=== PATIENT | male | born 1980 | race African-American/Black ===

== ENCOUNTER 2018-06-29 18:12 | Emergency (ER) | payer OTHER ==
--- NOTE | 2018-06-29 21:21 | ER ---
Nurse's Notes [facility] Name: Mat Lerma Age: 38 yrs Sex: Male : 1980 Arrival Date: 06/29/2018 Time: 18:18 Bed 19 Private MD: None, None Diagnosis: Acute sinusitis Presentation: 06/29 18:48 Presenting complaint: Patient states: Reports starting HTN medication on Wednesday and now aj reports feeling light headed since Wednesday. Patient also reports sinus congestion and nasal drainage. Transition of care: patient was not received from another setting of care. Onset of symptoms was June 27, 2018. Risk Assessment: Do you want to hurt yourself or someone else? Patient reports no desire to harm self or others. Initial Sepsis Screen: Does the patient meet any 2 criteria? No. Patient's initial sepsis screen is negative. Does the patient have a suspected source of infection? No. Patient's initial sepsis screen is negative. Care prior to arrival: None. 18:48 Method Of Arrival: Ambulatory aj 18:48 Acuity: DIAMOND 4 aj Triage Assessment: 18:51 General: Appears in no apparent distress. comfortable, Behavior is calm, cooperative, aj appropriate for age. Pain: Denies pain. EENT: Reports Pressure across forehead. EENT: Reports nasal congestion nasal discharge. Neuro: Level of Consciousness is awake, alert, obeys commands, Oriented to person, place, time, situation, Appropriate for age. Respiratory: Airway is patent Respiratory effort is even, unlabored, Respiratory pattern is regular, symmetrical. Derm: Skin is intact, is healthy with good turgor, Skin is pink, warm \T\ dry. normal. Historical: - Allergies: 18:51 No Known Allergies; aj - Home Meds: 18:51 lovastatin 20 mg Oral tab 1 tab once daily [Active]; lisinopril-hydrochlorothiazide aj 20-12.5 mg oral tab 1 tab once daily [Active]; - PMHx: 18:51 Hypertension; Hyperlipidemia; aj - PSHx: 18:51 None; aj - Immunization history:: Adult Immunizations up to date. - Social history:: Smoking status: Patient uses tobacco products, cigars. - Ebola Screening: : Patient negative for fever greater than or equal to 101.5 degrees Fahrenheit, and additional compatible Ebola Virus Disease symptoms Patient denies exposure to infectious person Patient denies travel to an Ebola-affected area in the 21 days before illness onset No symptoms or risks identified at this time. Screenin:32 Abuse screen: Denies threats or abuse. Denies injuries from another. Nutritional bs1 screening: No deficits noted. Tuberculosis screening: No symptoms or risk factors identified. Fall Risk None identified. Assessment: 19:10 General: Appears in no apparent distress. uncomfortable, obese, Behavior is calm, bs1 cooperative, appropriate for age. Pain: Complains of pain in headache. Neuro: Level of Consciousness is awake, alert, obeys commands, Oriented to person, place, time, situation, Appropriate for age Reports headache in entire. Neuro: Reports dizziness. Cardiovascular: Denies chest pain, shortness of breath, Heart tones S1 S2 present Capillary refill < 3 seconds Patient's skin is warm and dry. Cardiovascular: Reports high blood pressure. Respiratory: Airway is patent Trachea midline Respiratory effort is even, unlabored, Respiratory pattern is regular, symmetrical, Breath sounds are clear bilaterally. GI: No signs and/or symptoms were reported involving the gastrointestinal system. : No signs and/or symptoms were reported regarding the genitourinary system. EENT: No signs and/or symptoms were reported regarding the EENT system. Derm: Skin is intact, Skin is pink, warm \T\ dry. normal. Musculoskeletal: Circulation, motion, and sensation intact. Capillary refill < 3 seconds, Range of motion: intact in all extremities. 20:30 Reassessment: Patient appears in no apparent distress at this time. Patient and/or bs1 family updated on plan of care and expected duration. Pain level reassessed. Patient is alert, oriented x 3, equal unlabored respirations, skin warm/dry/pink. Pending strep culture. Patient denies pain at this time. 21:20 Reassessment: Patient appears in no apparent distress at this time. Patient and/or bs1 family updated on plan of care and expected duration. Pain level reassessed. Patient is alert, oriented x 3, equal unlabored respirations, skin warm/dry/pink. Patient states understanding of discharge instructions Patient denies pain at this time. Patient states feeling better. Vital Signs: 18:51 BP 141 / 97; Pulse 86; Resp 16; Temp 97.6; Pulse Ox 97% on R/A; Weight 196.41 kg; aj Height 5 ft. 9 in. (175.26 cm); 19:15 BP 155 / 92; Pulse 81; Resp 16 S; Pulse Ox 96% on R/A; bs1 19:52 BP 147 / 84; Pulse 79; Resp 16; Pulse Ox 97% on R/A; bs1 20:00 BP 142 / 83; Pulse 79; Pulse Ox 97% on R/A; bs1 20:15 BP 136 / 75; Pulse 79; Resp 16 S; Pulse Ox 96% on R/A; bs1 20:50 BP 141 / 86; Pulse 78; Resp 16; Temp 98(O); Pulse Ox 99% ; Pain 0/10; bs1 18:51 Body Mass Index 63.94 (196.41 kg, 175.26 cm) aj ED Course: 18:18 Patient arrived in ED. sb2 18:19 None, None is Private Physician. sb2 18:50 Triage completed. aj 18:51 Arm band placed on right wrist. Patient placed in an exam room. aj 18:57 Lottie Alas, RN is Primary Nurse. bs1 19:34 Natividad Lerma FNP-C is PHCP. kb 19:34 Dez Beltran MD is Attending Physician. kb 20:00 Patient has correct armband on for positive identification. Bed in low position. Call bs1 light in reach. Side rails up X 1. Pulse ox on. NIBP on. 21:32 No provider procedures requiring assistance completed. Patient did not have IV access bs1 during this emergency room visit. Administered Medications: No medications were administered Outcome: 21:20 Discharge ordered by . kb 21:33 Discharged to home ambulatory. bs1 21:33 Condition: stable 21:33 Discharge instructions given to patient, Instructed on discharge instructions, follow up and referral plans. medication usage, Demonstrated understanding of instructions, follow-up care, medications, Prescriptions given X 1. 21:33 Patient left the ED. bs1 Signatures: Natividad Lerma FNP-C FNP-Tami Ramires RN RN Lottie Gallagher, RN RN bs1 Elisabeth Crockett sb2
--- NOTE | 2018-06-29 21:21 | EDPHYS ---
Physician Documentation [facility] Name: Mat Lerma Age: 38 yrs Sex: Male : 1980 Arrival Date: 06/29/2018 Time: 18:18 Bed 19 Private MD: None, None ED Physician Dez Beltran HPI: 06/29 21:42 This 38 yrs old Black Male presents to ER via Ambulatory with complaints of Blood kb Pressure Problem, Dizziness. 21:42 The patient has elevated blood pressure and discovered this at a physician's office. kb Onset: The symptoms/episode began/occurred 6 day(s) ago. Modifying factors: The symptoms are aggravated by discontinuation of meds. Associated signs and symptoms: Pertinent positives: lightheadedness, sinus congestion/pain, sore throat and drainage. Severity of symptoms: At its worst the blood pressure was 192 mm Hg, in the emergency department the blood pressure is improved. The patient has experienced similar episodes in the past, chronically. The patient has been recently seen by a physician: the patient's primary care provider, 6 day(s) ago. Pt states he went to his doctor on Wednesday because he had been out of his blood pressure medication for 2.5 months. States his blood pressure was 192/110. He started his lisinopril again at that time. Reports his blood pressure is still high. Also reports sinus pressure/congestion, drainage, sore throat, lightheadedness since Wednesday. Reports he has been under a lot of stress lately. Historical: - Allergies: 18:51 No Known Allergies; aj - Home Meds: 18:51 lovastatin 20 mg Oral tab 1 tab once daily [Active]; lisinopril-hydrochlorothiazide aj 20-12.5 mg oral tab 1 tab once daily [Active]; - PMHx: 18:51 Hypertension; Hyperlipidemia; aj - PSHx: 18:51 None; aj - Immunization history:: Adult Immunizations up to date. - Social history:: Smoking status: Patient uses tobacco products, cigars. - Ebola Screening: : Patient negative for fever greater than or equal to 101.5 degrees Fahrenheit, and additional compatible Ebola Virus Disease symptoms Patient denies exposure to infectious person Patient denies travel to an Ebola-affected area in the 21 days before illness onset No symptoms or risks identified at this time. ROS: 21:42 Constitutional: Negative for fever, chills, and weight loss, Cardiovascular: Negative kb for chest pain, palpitations, and edema, Respiratory: Negative for shortness of breath, cough, wheezing, and pleuritic chest pain, Abdomen/GI: Negative for abdominal pain, nausea, vomiting, diarrhea, and constipation, MS/Extremity: Negative for injury and deformity, Skin: Negative for injury, rash, and discoloration. 21:42 ENT: Positive for sinus congestion, sinus pain, sore throat. 21:42 Neuro: Positive for lightheadedness. Exam: 21:42 Constitutional: This is a well developed, well nourished patient who is awake, alert, kb and in no acute distress. Chest/axilla: Normal chest wall appearance and motion. Nontender with no deformity. No lesions are appreciated. Cardiovascular: Regular rate and rhythm with a normal S1 and S2. No gallops, murmurs, or rubs. Normal PMI, no JVD. No pulse deficits. Respiratory: Lungs have equal breath sounds bilaterally, clear to auscultation and percussion. No rales, rhonchi or wheezes noted. No increased work of breathing, no retractions or nasal flaring. Abdomen/GI: Soft, non-tender, with normal bowel sounds. No distension or tympany. No guarding or rebound. No evidence of tenderness throughout. Skin: Warm, dry with normal turgor. Normal color with no rashes, no lesions, and no evidence of cellulitis. MS/ Extremity: Pulses equal, no cyanosis. Neurovascular intact. Full, normal range of motion. Neuro: Awake and alert, GCS 15, oriented to person, place, time, and situation. Cranial nerves II-XII grossly intact. Motor strength 5/5 in all extremities. Sensory grossly intact. Cerebellar exam normal. Normal gait. 21:42 Head/face: Sinus tenderness, that is mild. 21:42 ENT: External ear(s): are unremarkable, Ear canal(s): are normal, TM's: are normal, Nose: is normal, Mouth: is normal, Posterior pharynx: erythema, that is moderate. Vital Signs: 18:51 BP 141 / 97; Pulse 86; Resp 16; Temp 97.6; Pulse Ox 97% on R/A; Weight 196.41 kg; aj Height 5 ft. 9 in. (175.26 cm); 19:15 BP 155 / 92; Pulse 81; Resp 16 S; Pulse Ox 96% on R/A; bs1 19:52 BP 147 / 84; Pulse 79; Resp 16; Pulse Ox 97% on R/A; bs1 20:00 BP 142 / 83; Pulse 79; Pulse Ox 97% on R/A; bs1 20:15 BP 136 / 75; Pulse 79; Resp 16 S; Pulse Ox 96% on R/A; bs1 20:50 BP 141 / 86; Pulse 78; Resp 16; Temp 98(O); Pulse Ox 99% ; Pain 0/10; bs1 18:51 Body Mass Index 63.94 (196.41 kg, 175.26 cm) aj MDM: 19:37 Patient medically screened. kb 21:05 Data reviewed: vital signs, nurses notes. Data interpreted: Pulse oximetry: on room air kb is 96 %. Interpretation: normal. 21:16 Counseling: I had a detailed discussion with the patient and/or guardian regarding: the kb historical points, exam findings, and any diagnostic results supporting the discharge/admit diagnosis, lab results, the need for outpatient follow up, a family practitioner, to return to the emergency department if symptoms worsen or persist or if there are any questions or concerns that arise at home. 21:42 ED course: Pt reports he doesn't take his blood pressure at home because he doesn't kb have a device. recommended he get one and keep a blood pressure log for his next dr's appt. Recommended use of antihistamine and flonase for sinusitis symptoms. . 06/29 19:44 Order name: Group A Streptococcus Rapid Sc; Complete Time: 21:05 EDMS 06/29 20:56 Order name: Throat Culture EDMS Administered Medications: No medications were administered Disposition: 06/30 06:52 Co-signature as Attending Physician, Dez Beltran MD I agree with the assessment and freddy plan of care. Disposition: 06/29/18 21:20 Discharged to Home. Impression: Acute sinusitis. - Condition is Stable. - Discharge Instructions: Sinusitis, Adult, [id number]. - Prescriptions for Prednisone 20 mg Oral Tablet - take 1 tablet by ORAL route once daily for 5 days; 5 tablet. - Medication Reconciliation Form, Thank You Letter, Antibiotic Education, Prescription Opioid Use form. - Follow up: Emergency Department; When: As needed; Reason: Worsening of condition. Follow up: Private Physician; When: 2 - 3 days; Reason: Recheck today's complaints, Continuance of care, Re-evaluation by your physician. Signatures: Dispatcher [employer] [facility] Natividad Lerma, GOLF CADDIE-C GOLF CADDIE-Miguelitob Tami Kirk, RN RN Dez Matute MD MD cha Salazar, Brittany, RN RN bs1 Corrections: (The following items were deleted from the chart) 06/29 19:48 19:44 Group A Streptococcus Rapid [id number] ordered. [facility] 21:33 21:20 06/29/2018 21:20 Discharged to Home. Impression: Acute sinusitis. Condition is bs1 Stable. Forms are Medication Reconciliation Form, Thank You Letter, Antibiotic Education, Prescription Opioid Use. Follow up: Emergency Department; When: As needed; Reason: Worsening of condition. Follow up: Private Physician; When: 2 - 3 days; Reason: Recheck today's complaints, Continuance of care, Re-evaluation by your physician. kb
[2018-06-29 21:45] VITALS: BP 141/86; TEMP 98; O2SAT 99
== END 2018-06-29 21:33 | disposition home or self-care (01) ==
LOC: ER 18:12
DX: J01.90 Acute sinusitis, unspecified (principal); I10 Essential (primary) hypertension; E78.5 Hyperlipidemia, unspecified; Z72.0 Tobacco use
CPT/HCPCS: 87070; 87081; 99283

== ENCOUNTER 2018-12-14 10:09 | Emergency (ER) | payer OTHER ==
--- OUTSIDE RECORDS SUMMARY | 2018-12-14 10:12 | XMS REPORT ---
:1980 [facility] Address [address] [place] [address] Care Team Providers Name Role Phone Unavailable Unavailable Unavailable Problems This patient has no known problems. Allergies, Adverse Reactions, Alerts This patient has no known allergies or adverse reactions. Medications This patient has no known medications.
[2018-12-14 11:31] LABS: Absolute Lymphocytes (CBC) 2.1 K/uL (0.7-4.9); Absolute Monocytes 0.5 K/uL (0.1-1.3); Absolute Neutrophil 5.4 K/uL (1.8-8.0); Basophils % 0.2 % (0-1.3); Eosinophils % 2.3 % (0-4.4); Hematocrit 44.6 % (39.6-49.0); Lymphocytes % 25.2 % (15.3-44.8); Monocytes % 6.1 % (3.3-12.3); RBC Red Blood Cell Count 5.36 M/uL (4.33-5.43)
[2018-12-14 11:47] LABS: Protime INR 1.04
[2018-12-14 11:51] LABS: ALT/SGPT 17 U/L (12-78); AST/SGOT 21 U/L (15-37); Albumin 3.6 g/dL (3.4-5.0); Alkaline Phosphatase 60 U/L (45-117); BUN Blood Urea Nitrogen 14 mg/dL (7-18); Bicarbonate 32 mmol/L (21-32); Bilirubin Direct 0.1 mg/dL (0-0.2); Bilirubin Total 0.6 mg/dL (0.2-1.0); Glucose Level 94 mg/dL (74-106); Magnesium 2.2 mg/dL (1.8-2.4); NT PRO-BNP 35 pg/mL (<125); Potassium 3.8 mmol/L (3.5-5.1); Sodium Level 141 mmol/L (136-145); Troponin (Emerg Dept Use Only) < 0.02 ng/mL (0.0-0.045)
--- NOTE | 2018-12-14 12:28 | EKG ---
Test Date: 2018-12-14 Test Time: 10:31:12 Certified Respiratory Therapist: MANJEET MEASUREMENT RESULTS: Intervals: Rate: 96 RI: 154 QRSD: 86 QT: 364 QTc: 459 [place]: P: 64 RI: 154 QRS: 73 T: 28 INTERPRETIVE STATEMENTS: Normal sinus rhythm Normal ECG Compared to ECG 08/18/2012 20:10:01 No significant changes Electronically Signed On 12-14-18 12:27:24 [employer] by Markos Martins
--- NOTE | 2018-12-14 12:42 | RAD REPORT ---
EXAM DESCRIPTION: Ana Luisa Single View12/14/2018 12:35 pm CLINICAL HISTORY: Chest pain COMPARISON: none FINDINGS: The lungs appear clear of acute infiltrate. The heart is probably upper limits normal siz e IMPRESSION: No acute abnormalities displayed
--- NOTE | 2018-12-14 13:45 | ER ---
Nurse's Notes [facility] Name: Mat Lerma Age: 38 yrs Sex: Male : 1980 Arrival Date: 12/14/2018 Time: 10:11 Bed 8 Private MD: Juan J Fernandez; None, None Diagnosis: Acute bronchitis Presentation: 12/14 10:15 Presenting complaint: Patient states: he was at work and then started feeling SOB, sv chest tightness, "heart pounding" , symptoms lasted about an hour and has since resolved. Transition of care: patient was not received from another setting of care. Onset of symptoms was December 14, 2018. Care prior to arrival: None. 10:15 Method Of Arrival: Ambulatory sv 10:15 Acuity: DIAMOND 2 sv 10:17 Note Wednesday pt went to the ER for the same symptoms and was admitted and they sv increased the Lisinopril/HCTZ to BID from daily. 11:00 Risk Assessment: Do you want to hurt yourself or someone else? Patient reports no hb desire to harm self or others. Initial Sepsis Screen: Does the patient meet any 2 criteria? No. Patient's initial sepsis screen is negative. Does the patient have a suspected source of infection? No. Patient's initial sepsis screen is negative. Historical: - Allergies: 10:16 No Known Allergies; sv - Home Meds: 10:16 lovastatin 20 mg Oral tab 1 tab once daily [Active]; lisinopril-hydrochlorothiazide sv 20-12.5 mg Oral tab 1 tab twice a day [Active]; - PMHx: 10:16 Hyperlipidemia; Hypertension; sv - PSHx: 10:16 None; sv - Immunization history:: Adult Immunizations up to date. - Social history:: Smoking status: Patient/guardian denies using tobacco. - Ebola Screening: : No symptoms or risks identified at this time. Screenin:30 Abuse screen: Denies threats or abuse. Denies injuries from another. Nutritional hb screening: No deficits noted. Tuberculosis screening: No symptoms or risk factors identified. Fall Risk None identified. Assessment: 10:30 General: Appears in no apparent distress. Behavior is calm, cooperative. Pain: Pain hb does not radiate. Pain began 2-3 days ago. Aggravated by cough. Neuro: Level of Consciousness is awake, alert, obeys commands, Oriented to person, place, time, situation. Cardiovascular: Heart tones S1 S2 present Capillary refill < 3 seconds Patient's skin is warm and dry. Respiratory: Reports pain with cough Airway is patent Respiratory effort is even, unlabored, Respiratory pattern is regular, symmetrical, Breath sounds are clear bilaterally. GI: No signs and/or symptoms were reported involving the gastrointestinal system. : No signs and/or symptoms were reported regarding the genitourinary system. EENT: No signs and/or symptoms were reported regarding the EENT system. Derm: Skin is intact, is healthy with good turgor. 11:30 Reassessment: Patient appears in no apparent distress at this time. No changes from hb previously documented assessment. Patient and/or family updated on plan of care and expected duration. Pain level reassessed. Patient is alert, oriented x 3, equal unlabored respirations, skin warm/dry/pink. 12:30 Reassessment: Patient appears in no apparent distress at this time. Patient and/or hb family updated on plan of care and expected duration. Pain level reassessed. Patient is alert, oriented x 3, equal unlabored respirations, skin warm/dry/pink. 13:30 Reassessment: Patient appears in no apparent distress at this time. Patient and/or hb family updated on plan of care and expected duration. Pain level reassessed. Patient is alert, oriented x 3, equal unlabored respirations, skin warm/dry/pink. Patient denies pain at this time. Patient states symptoms have improved. Vital Signs: 10:18 BP 153 / 112; Pulse 99; Resp 18; Pulse Ox 97% ; Weight 205.02 kg; Height 5 ft. 9 in. sv (175.26 cm); Pain 2/10; 11:15 BP 162 / 114; Pulse 98; Resp 15; Pulse Ox 98% on R/A; em1 12:01 BP 158 / 101; Pulse 82; Resp 18; Pulse Ox 100% on R/A; Pain 0/10; hb 12:30 BP 156 / 108; Pulse 85; Resp 18; Pulse Ox 100% on R/A; hb 13:30 BP 148 / 78; Pulse 80; Resp 16; Pulse Ox 100% on R/A; hb 10:18 Body Mass Index 66.75 (205.02 kg, 175.26 cm) sv ED Course: 10:11 Patient arrived in ED. sb2 10:11 None, None is Private Physician. sb2 10:12 Juan J Fernandez MD is Private Physician. sb2 10:16 Triage completed. sv 10:19 Arm band placed on. sv 10:21 Jai Cordova PA is PHCP. jmm 10:21 Britney Aquino MD is Attending Physician. jmm 10:30 Patient has correct armband on for positive identification. Placed in gown. Bed in low hb position. Call light in reach. Side rails up X 1. 10:30 nuclear monitoring technician on. Pulse ox on. NIBP on. hb 10:30 Patient maintains SpO2 saturation greater than 95% on room air. hb 11:14 Initial lab(s) drawn, by me, sent to lab. Inserted saline lock: 20 gauge in right em1 antecubital area, using aseptic technique. Blood collected. 11:56 Paula Boss RN is Primary Nurse. hb 12:17 X-ray completed. Portable x-ray completed in exam room. Patient tolerated procedure jb2 well. 12:37 XRAY Chest (1 view) In Process Unspecified. EDMS 13:44 Juan J Fernandez MD is Referral Physician. m 14:00 No provider procedures requiring assistance completed. IV discontinued, intact, hb bleeding controlled, No redness/swelling at site. Pressure dressing applied. Administered Medications: No medications were administered Outcome: 13:44 Discharge ordered by . jmm 14:00 Discharged to home ambulatory, with significant other. hb 14:00 Condition: stable 14:00 Discharge instructions given to patient, Instructed on discharge instructions, follow up and referral plans. Demonstrated understanding of instructions, follow-up care. 14:02 Patient left the ED. hb Signatures: Dispatcher [employer] EDMS Barb Herrera RN RN Jai Cordova PA PA Harvey Dao jb2 Ancelmo Goldberg em1 Paula Boss RN RN Elisabeth Garcia sb2 Corrections: (The following items were deleted from the chart) 10:20 10:15 Acuity: DIAMOND 3 sv sv 13:09 12:01 BP 101 / 101; Pulse 82bpm; Resp 18bpm; Pulse Ox 100% RA; Pain 0/10; hb hb
--- NOTE | 2018-12-14 13:46 | EDPHYS ---
Physician Documentation [facility] Name: Mat Lerma Age: 38 yrs Sex: Male : 1980 Arrival Date: 12/14/2018 Time: 10:11 Bed 8 Private MD: Juan J Fernandez; None, None ED Physician Britney Aquino HPI: 12/14 10:49 This 38 yrs old Black Male presents to ER via Ambulatory with complaints of Chest jmm Tightness - BRONCHITIS. 10:49 The patient or guardian reports cough. Onset: The symptoms/episode began/occurred jmm gradually, 8 day(s) ago. This is a 38 year old male with a history of hlp, htn that presents to the ED with complaints of cough, shortness of breath beginning 8 days ago. The patient was evaluated in the ED initially and diagnosed with bronchitis. The patient return 2 days later and was admitted due to concerns for CHF. Patient states he was cleared by cardiology. Patient states his symptoms have improved but earlier today developed shortness of breath and palpitations. Patient denies hemoptysis, leg swelling. . Historical: - Allergies: 10:16 No Known Allergies; sv - Home Meds: 10:16 lovastatin 20 mg Oral tab 1 tab once daily [Active]; lisinopril-hydrochlorothiazide sv 20-12.5 mg Oral tab 1 tab twice a day [Active]; - PMHx: 10:16 Hyperlipidemia; Hypertension; sv - PSHx: 10:16 None; sv - Immunization history:: Adult Immunizations up to date. - Social history:: Smoking status: Patient/guardian denies using tobacco. - Ebola Screening: : No symptoms or risks identified at this time. ROS: 10:49 Abdomen/GI: Negative for abdominal pain, nausea, vomiting, diarrhea, and constipation, jmm Back: Negative for injury and pain, MS/Extremity: Negative for injury and deformity, Skin: Negative for injury, rash, and discoloration, Neuro: Negative for headache, weakness, numbness, tingling, and seizure. 10:49 Cardiovascular: Positive for palpitations. 10:49 Respiratory: Positive for cough, shortness of breath. 10:49 All other systems are negative. Exam: 10:49 Head/Face: atraumatic. Eyes: EOMI, no conjunctival erythema appreciated ENT: Moist jmm Mucus Membranes Neck: Trachea midline, Supple Chest/axilla: Normal chest wall appearance and motion. 10:49 Constitutional: The patient appears in no acute distress, alert, awake. 10:49 Cardiovascular: Rate: normal, Rhythm: regular. 10:49 Respiratory: the patient does not display signs of respiratory distress, Respirations: normal, Breath sounds: are clear throughout. 10:49 Abdomen/GI: Inspection: abdomen appears normal, Bowel sounds: normal, Palpation: abdomen is soft and non-tender, in all quadrants. 10:49 Back: ROM is normal. 10:49 Musculoskeletal/extremity: ROM: intact in all extremities. 10:49 Skin: Appearance: Color: normal in color. 10:49 Neuro: Orientation: is normal, Mentation: is normal, Memory: is normal. 10:49 Psych: Behavior/mood is pleasant, cooperative. Vital Signs: 10:18 BP 153 / 112; Pulse 99; Resp 18; Pulse Ox 97% ; Weight 205.02 kg; Height 5 ft. 9 in. sv (175.26 cm); Pain 2/10; 11:15 BP 162 / 114; Pulse 98; Resp 15; Pulse Ox 98% on R/A; em1 12:01 BP 158 / 101; Pulse 82; Resp 18; Pulse Ox 100% on R/A; Pain 0/10; hb 12:30 BP 156 / 108; Pulse 85; Resp 18; Pulse Ox 100% on R/A; hb 13:30 BP 148 / 78; Pulse 80; Resp 16; Pulse Ox 100% on R/A; hb 10:18 Body Mass Index 66.75 (205.02 kg, 175.26 cm) sv MDM: 10:31 Patient medically screened. [facility] 13:42 Data reviewed: vital signs, nurses notes, lab test result(s), radiologic studies, plain [facility] films. Counseling: I had a detailed discussion with the patient and/or guardian regarding: the historical points, exam findings, and any diagnostic results supporting the discharge/admit diagnosis, lab results, radiology results, the need for outpatient follow up, to return to the emergency department if symptoms worsen or persist or if there are any questions or concerns that arise at home. ED course: Patient is alert and non toxic in appearance in the ED. Symptoms appear most likely due to a viral bronchitis. I do not currently suspect PE. VS WNL on discharge without intervention. Patient was recently discharged with cardiac clearance. patient will follow up with PCP Wednesday and is otherwise given strict return precautions. Patient understood and agrees with the plan of care. . 13:42 Test interpretation: by ED physician or midlevel provider: ECG. [facility] 12/14 10:42 Order name: Basic Metabolic Panel [facility] 12/14 10:42 Order name: CBC with Diff; Complete Time: 11:43 [facility] 12/14 10:42 Order name: LFT's [facility] 12/14 10:42 Order name: Magnesium [facility] 12/14 10:42 Order name: NT PRO-BNP [facility] 12/14 10:42 Order name: PT-INR; Complete Time: 12:00 [facility] 12/14 10:42 Order name: Troponin (emerg Dept Use Only) [facility] 12/14 10:42 Order name: XRAY Chest (1 view); Complete Time: 12:51 [facility] 12/14 10:42 Order name: EKG; Complete Time: 10:45 [facility] 12/14 10:42 Order name: Cardiac monitoring; Complete Time: 11:59 [facility] 12/14 10:42 Order name: EKG - Nurse/Tech; Complete Time: 11:59 [facility] 12/14 10:42 Order name: IV Saline Lock; Complete Time: 11:14 [facility] 12/14 10:42 Order name: Labs collected and sent; Complete Time: 11:14 [facility] 12/14 10:42 Order name: O2 Per Protocol; Complete Time: 11:57 [facility] 12/14 10:42 Order name: O2 Sat Monitoring; Complete Time: 11:57 [facility] Administered Medications: No medications were administered Disposition: 18:42 Co-signature as Attending Physician, Britney Aquino MD I agree with the assessment ma2 and plan of care. Disposition: 12/14/18 13:44 Discharged to Home. Impression: Acute bronchitis. - Condition is Stable. - Discharge Instructions: Acute Bronchitis, Adult. - Medication Reconciliation Form, Thank You Letter, Antibiotic Education, Prescription Opioid Use, Work release form, Family Work Release form. - Follow up: Juan J Fernandez MD; When: 2 - 3 days; Reason: Recheck today's complaints, Continuance of care, Re-evaluation by your physician. Signatures: Dispatcher [employer] Barb Harley RN RN Jai Cordova PA PA jmm Baxter, Heather, DARCY TAVERAS Britney Aquino MD MD ma2 Corrections: (The following items were deleted from the chart) 11:02 10:45 D-DIMER+COAG.LAB.BRZ ordered. EDMS EDMS 11:36 11:06 D-DIMER+COAG.LAB.BRZ ordered. EDKS EDMS 14:02 13:44 12/14/2018 13:44 Discharged to Home. Impression: Acute bronchitis. Condition is hb Stable. Forms are Medication Reconciliation Form, Thank You Letter, Antibiotic Education, Prescription Opioid Use. Follow up: Juan J Fernandez; When: 2 - 3 days; Reason: Recheck today's complaints, Continuance of care, Re-evaluation by your physician. [email or web address]
[2018-12-14 14:12] VITALS: O2SAT 100
[2018-12-14 14:14] VITALS: BP 148/78
== END 2018-12-14 14:02 | disposition home or self-care (01) ==
LOC: ER 10:09
DX: J20.9 Acute bronchitis, unspecified (principal); E78.5 Hyperlipidemia, unspecified; I10 Essential (primary) hypertension
CPT/HCPCS: 36415; 71045; 80048; 80076; 83735; 83880; 84484; 85025; 85610; 93005; 99285

== ENCOUNTER 2019-01-23 12:04 | Emergency (ER) | payer OTHER ==
--- OUTSIDE RECORDS SUMMARY | 2019-01-23 12:07 | XMS REPORT ---
:1980 [facility] [address] [place] [address] Care Team Providers Name Role Phone Unavailable Unavailable Unavailable Problems This patient has no known problems. Allergies, Adverse Reactions, Alerts This patient has no known allergies or adverse reactions. Medications This patient has no known medications.
[2019-01-23] MEDS ORDERED: IBUPROFEN 400 MG TAB ONE (13:09)
--- NOTE | 2019-01-23 13:09 | RAD REPORT ---
EXAM DESCRIPTION: US - Extremity Venous Uni Ltd - 01/23/2019 12:59 pm CLINICAL HISTORY: posterior left knee pain Leg swelling and edema. COMPARISON: <Comparisons> FINDINGS: Left lower extremity venous system was interrogated with Doppler technique. Normal flow, c ompressibility and augmentation was noted. There is no DVT present. IMPRESSION: No evidence of left lower extremity deep venous thrombosis.
--- NOTE | 2019-01-23 13:22 | RAD REPORT ---
EXAM DESCRIPTION: RAD - Knee Left 3 View - 01/23/2019 1:12 pm CLINICAL HISTORY: PAIN Pain and swelling. COMPARISON: No comparisons FINDINGS: Moderate degenerative changes present involving the medial and lateral joint compartments. No acute fracture or dislocation seen. Small amount of suprapatellar joint fluid seen.
--- NOTE | 2019-01-23 13:35 | ER ---
Nurse's Notes [facility] Name: Mat Lerma Age: 39 yrs Sex: Male : 1980 Arrival Date: 01/23/2019 Time: 12:12 Bed 26 Private MD: Juan J Fernandez Diagnosis: Pain in left knee Presentation: 01/23 12:21 Presenting complaint: Patient states: L knee pain x 4-5 days. Denies injury. Pt states, ss "I might have twisted it.". Transition of care: patient was not received from another setting of care. Onset of symptoms was January 18, 2019. Risk Assessment: Do you want to hurt yourself or someone else? Patient reports no desire to harm self or others. Initial Sepsis Screen: Does the patient meet any 2 criteria? No. Patient's initial sepsis screen is negative. Does the patient have a suspected source of infection? No. Patient's initial sepsis screen is negative. Care prior to arrival: None. 12:21 Method Of Arrival: Ambulatory ss 12:21 Acuity: DIAMOND 4 ss Historical: - Allergies: 12:22 No Known Allergies; ss - PMHx: 12:22 Hyperlipidemia; Hypertension; ss - PSHx: 12:22 None; ss - Immunization history:: Adult Immunizations up to date. - Social history:: Smoking status: Patient/guardian denies using tobacco. - Ebola Screening: : Patient denies exposure to infectious person Patient denies travel to an Ebola-affected area in the 21 days before illness onset. Screenin:50 Abuse screen: Denies threats or abuse. Nutritional screening: No deficits noted. em Tuberculosis screening: No symptoms or risk factors identified. Fall Risk None identified. Assessment: 12:50 General: Appears in no apparent distress. comfortable, Behavior is calm, cooperative. em Pain: Complains of pain in left knee Pain currently is 7 out of 10 on a pain scale. Pain began 4-5 days ago Aggravated by exercise, increased activity, weight bearing. Neuro: Level of Consciousness is awake, alert, obeys commands, Oriented to person, place, time, situation. Cardiovascular: Capillary refill < 3 seconds. Respiratory: Airway is patent Respiratory effort is even, unlabored, Respiratory pattern is regular, symmetrical. GI: Abdomen is obese. Derm: Skin is intact, is healthy with good turgor, Skin is pink, warm \\T\\ dry. Musculoskeletal: Range of motion: limited in left knee Swelling absent. 12:50 Reassessment: I agree with assessment completed by Alex Mcdowell LVN . aa5 Vital Signs: 12:22 BP 151 / 102; Pulse 89; Resp 16; Temp 97.2(TE); Pulse Ox 99% on R/A; Weight 196.41 kg; ss Height 5 ft. 9 in. (175.26 cm); Pain 7/10; 12:22 Body Mass Index 63.94 (196.41 kg, 175.26 cm) ED Course: 12:12 Patient arrived in ED. mr 12:13 Sam Red MD is Private Physician. mr 12:20 Juan J Fernandez MD is Private Physician. mr 12:22 Triage completed. ss 12:22 Arm band placed on right wrist. ss 12:23 Dez Ramirez PA is PHCP. cp 12:23 Lyndon Mccallum MD is Attending Physician. cp 12:40 Alex Mcdowell LVN is Primary Nurse. em 12:50 Patient has correct armband on for positive identification. Bed in low position. Call em light in reach. 12:56 Radiology exam delayed due to PT NOT IN ASSIGNED ED ROOM WHEN X RAY WAS ATTEMPTED. sw 12:59 US Extremity Venous Unilateral Ltd In Process Unspecified. EDMS 13:00 Ultrasound completed. Patient moved to radiology. aa4 13:06 X-ray completed. Patient tolerated procedure well. Patient moved back from radiology. 1 13:08 XRAY Knee LEFT 3 view In Process Unspecified. EDMS 13:34 Preet Chin MD is Referral Physician. cp 13:41 No provider procedures requiring assistance completed. Patient did not have IV access em during this emergency room visit. Administered Medications: 13:16 Drug: Ibuprofen 800 mg Route: PO; em 13:41 Follow up: Response: No adverse reaction em Outcome: 13:34 Discharge ordered by . cp 13:41 Discharged to home ambulatory. em 13:41 Condition: good 13:41 Discharge instructions given to patient, Instructed on discharge instructions, follow up and referral plans. medication usage, Demonstrated understanding of instructions, follow-up care, medications, Prescriptions given X 1. 13:42 Patient left the ED. em Signatures: Dispatcher [employer] DESEANIN Emilee Brady Melissa Pop mh1 Alex Mcdowell, SUPERVISOR PILE DRIVING SUPERVISOR PILE DRIVING Tami Gibbs aa4 Judie Neves, RN RN aa5 Bryanna Marin RN RN ss Geraldine Louis Corey, ANSHUL PA cp
--- NOTE | 2019-01-23 13:35 | EDPHYS ---
Physician Documentation [facility] Name: Mat Lerma Age: 39 yrs Sex: Male : 1980 Arrival Date: 01/23/2019 Time: 12:12 Bed 26 Private MD: Juan J Fernandez ED Physician Lyndon Mccallum HPI: 01/23 12:45 This 39 yrs old Black Male presents to ER via Ambulatory with complaints of Knee Pain. cp 12:45 The patient presents with pain, that is acute. cp 12:45 The complaints affect the posterior aspect of left knee. Context: resulted from an cp unknown cause, the patient can fully bear weight, the patient is able to ambulate, with mild difficulty, Problem is a result from a previous injury: No. Onset: The symptoms/episode began/occurred 5 day(s) ago. Modifying factors: the symptoms are aggravated by weight bearing, bending knee. Associated signs and symptoms: Pertinent negatives calf tenderness, shortness of breath. Treatment prior to arrival includes: no previous treatment. Historical: - Allergies: 12:22 No Known Allergies; ss - PMHx: 12:22 Hyperlipidemia; Hypertension; ss - PSHx: 12:22 None; ss - Immunization history:: Adult Immunizations up to date. - Social history:: Smoking status: Patient/guardian denies using tobacco. - Ebola Screening: : Patient denies exposure to infectious person Patient denies travel to an Ebola-affected area in the 21 days before illness onset. ROS: 12:55 Constitutional: Negative for body aches, chills, fever. cp 12:55 Cardiovascular: Negative for chest pain, palpitations. cp 12:55 Respiratory: Negative for cough, shortness of breath, wheezing. 12:55 Abdomen/GI: Negative for abdominal pain, nausea, vomiting, and diarrhea. 12:55 MS/extremity: Positive for pain, of the posterior aspect of left knee, Negative for decreased range of motion, deformity, paresthesias. 12:55 All other systems are negative. Exam: 13:00 Constitutional: The patient appears in no acute distress, alert, awake, cp non-diaphoretic, non-toxic, well developed, well nourished, obese. 13:00 Head/Face: Normocephalic, atraumatic. cp 13:00 Eyes: Periorbital structures: appear normal, Conjunctiva: normal, no exudate, no injection, Sclera: no appreciated abnormality, Lids and lashes: appear normal, bilaterally. 13:00 ENT: External ear(s): are unremarkable, Nose: is normal, Mouth: Lips: moist, Oral mucosa: moist, Posterior pharynx: Airway: no evidence of obstruction, patent. 13:00 Chest/axilla: Inspection: normal. 13:00 Cardiovascular: Rate: normal. 13:00 Respiratory: the patient does not display signs of respiratory distress, Respirations: normal, no use of accessory muscles, no splinting, no tachypnea, labored breathing, is not present, Breath sounds: are clear throughout, no decreased breath sounds, no stridor, no wheezing. 13:00 Musculoskeletal/extremity: Extremities: grossly normal except: noted in the posterior aspect of left knee: pain, tenderness, There is no evidence of decreased ROM, swelling. 13:00 Skin: cellulitis, is not appreciated, no rash present. Vital Signs: 12:22 BP 151 / 102; Pulse 89; Resp 16; Temp 97.2(TE); Pulse Ox 99% on R/A; Weight 196.41 kg; ss Height 5 ft. 9 in. (175.26 cm); Pain 7/10; 12:22 Body Mass Index 63.94 (196.41 kg, 175.26 cm) ss MDM: 12:23 Patient medically screened. cp 13:00 Differential diagnosis: tendonitis, DVT, cellulitis, septic joint. cp 13:33 Data reviewed: vital signs, nurses notes, radiologic studies, plain films, ultrasound. cp 13:33 Test interpretation: by ED physician or midlevel provider: plain radiologic studies. cp Counseling: I had a detailed discussion with the patient and/or guardian regarding: the historical points, exam findings, and any diagnostic results supporting the discharge/admit diagnosis, radiology results, the need for outpatient follow up, a orthopedic surgeon, to return to the emergency department if symptoms worsen or persist or if there are any questions or concerns that arise at home. 01/23 12:37 Order name: US Extremity Venous Unilateral Ltd; Complete Time: 13:26 cp 01/23 13:27 Interpretation: Report reviewed. cp 01/23 12:37 Order name: XRAY Knee LEFT 3 view; Complete Time: 13:26 cp 01/23 13:27 Interpretation: Report reviewed. cp Administered Medications: 13:16 Drug: Ibuprofen 800 mg Route: PO; em 13:41 Follow up: Response: No adverse reaction em Disposition: 13:45 Chart complete. cp 01/24 08:11 Co-signature as Attending Physician, Lyndon Mccallum MD. rn Disposition: 01/23/19 13:34 Discharged to Home. Impression: Pain in left knee. - Condition is Stable. - Discharge Instructions: Elastic Bandage and RICE, Knee Pain. - Prescriptions for Naprosyn 500 mg Oral Tablet - take 1 tablet by ORAL route 2 times per day take with food; 20 tablet. - Work release form, Medication Reconciliation Form, Thank You Letter, Antibiotic Education, Prescription Opioid Use form. - Follow up: Preet Chin MD; When: 2 - 3 days; Reason: Recheck today's complaints. - Problem is new. - Symptoms have improved. Signatures: Dispatcher [employer] Alex Yung, JAVA SYBASE DEVELOPER JAVA SYBASE DEVELOPER Lyndon Jorge MD MD rn Smirch, Shelby, RN RN ss Page, Corey, PA PA cp Corrections: (The following items were deleted from the chart) 01/23 13:42 13:34 01/23/2019 13:34 Discharged to Home. Impression: Pain in left knee. Condition is em Stable. Forms are Medication Reconciliation Form, Thank You Letter, Antibiotic Education, Prescription Opioid Use. Follow up: Preet Chin; When: 2 - 3 days; Reason: Recheck today's complaints. Problem is new. Symptoms have improved. cp
[2019-01-23 13:47] VITALS: BP 151/102; TEMP 97.2; O2SAT 99
== END 2019-01-23 13:42 | disposition home or self-care (01) ==
LOC: ER 12:04
DX: M25.562 Pain in left knee (principal); E78.5 Hyperlipidemia, unspecified; I10 Essential (primary) hypertension
CPT/HCPCS: 93971; 99283

== ENCOUNTER 2019-02-21 08:59 | Emergency (ER) | payer OTHER, SELFPAY ==
--- OUTSIDE RECORDS SUMMARY | 2019-02-21 09:01 | XMS REPORT ---
:1980 [facility] [address] [place] [address] Care Team Providers Name Role Phone Unavailable Unavailable Unavailable Problems This patient has no known problems. Allergies, Adverse Reactions, Alerts This patient has no known allergies or adverse reactions. Medications This patient has no known medications.
--- NOTE | 2019-02-21 09:46 | EDPHYS ---
Physician Documentation [facility] Name: Mat Lerma Age: 39 yrs Sex: Male : 1980 Arrival Date: 02/21/2019 Time: 09:02 Bed 19 Private MD: ED Physician Lyndon Mccallum HPI: 02/21 09:17 This 39 yrs old Black Male presents to ER via Ambulatory with complaints of Sinus Pain. jr8 09:17 Onset: The symptoms/episode began/occurred acutely, 3 day(s) ago. Severity of symptoms: jr8 At their worst the symptoms were mild, in the emergency department the symptoms are unchanged. Modifying factors: The symptoms are alleviated by nothing, the symptoms are aggravated by nothing. Associated signs and symptoms: Pertinent positives: rhinorrhea, sinus pressure and headache . The patient has not experienced similar symptoms in the past. The patient has not recently seen a physician. Historical: - Allergies: 09:05 No Known Allergies; aa5 - PMHx: 09:05 Hyperlipidemia; Hypertension; aa5 - PSHx: 09:05 None; aa5 - Immunization history:: Flu vaccine is up to date. - Social history:: Smoking status: Patient/guardian denies using tobacco. - Ebola Screening: : No symptoms or risks identified at this time. ROS: 09:17 Eyes: Negative for injury, pain, redness, and discharge, Neck: Negative for injury, jr8 pain, and swelling, Cardiovascular: Negative for chest pain, palpitations, and edema, Respiratory: Negative for shortness of breath, cough, wheezing, and pleuritic chest pain, Abdomen/GI: Negative for abdominal pain, nausea, vomiting, diarrhea, and constipation, Back: Negative for injury and pain, MS/Extremity: Negative for injury and deformity, Skin: Negative for injury, rash, and discoloration. 09:17 ENT: Positive for rhinorrhea, sinus congestion, sinus pain. 09:17 Neuro: Positive for headache. Exam: 09:44 Eyes: Pupils equal round and reactive to light, extra-ocular motions intact. Lids and jr8 lashes normal. Conjunctiva and sclera are non-icteric and not injected. Cornea within normal limits. Periorbital areas with no swelling, redness, or edema. Neck: Trachea midline, no thyromegaly or masses palpated, and no cervical lymphadenopathy. Supple, full range of motion without nuchal rigidity, or vertebral point tenderness. No Meningismus. Cardiovascular: Regular rate and rhythm with a normal S1 and S2. No gallops, murmurs, or rubs. Normal PMI, no JVD. No pulse deficits. Respiratory: Lungs have equal breath sounds bilaterally, clear to auscultation and percussion. No rales, rhonchi or wheezes noted. No increased work of breathing, no retractions or nasal flaring. Abdomen/GI: Soft, non-tender, with normal bowel sounds. No distension or tympany. No guarding or rebound. No evidence of tenderness throughout. Back: No spinal tenderness. No costovertebral tenderness. Full range of motion. Skin: Warm, dry with normal turgor. Normal color with no rashes, no lesions, and no evidence of cellulitis. MS/ Extremity: Pulses equal, no cyanosis. Neurovascular intact. Full, normal range of motion. Neuro: Awake and alert, GCS 15, oriented to person, place, time, and situation. Cranial nerves II-XII grossly intact. Motor strength 5/5 in all extremities. Sensory grossly intact. Cerebellar exam normal. Normal gait. 09:44 Head/face: Sinus tenderness, that is moderate, is located over the right frontal sinus, left frontal sinus, right ethmoid sinus and left ethmoid sinus. 09:44 ENT: Exam is negative for earache, ear discharge, TM abnormalities, Nose: External nose: no obvious acute abnormality, Nasal septum: is midline, Nasal mucosa: erythematous, moist, Turbinates: are swollen bilaterally, Mouth: Lips: moist, Oral mucosa: pink and intact, moist, Gums: pink, Tongue: is moist, Posterior pharynx: Airway: patent, Tonsils: are normal in appearance, Uvula: midline, swelling, is not appreciated, erythema, is not appreciated. Vital Signs: 09:05 BP 151 / 92; Pulse 85; Resp 16 S; Temp 97.0(TE); Pulse Ox 97% on R/A; Weight 196.41 kg aa5 (R); Height 5 ft. 9 in. (175.26 cm) (R); Pain 4/10; 09:05 Body Mass Index 63.94 (196.41 kg, 175.26 cm) aa5 MDM: 09:17 Patient medically screened. 8 09:44 Data reviewed: vital signs, nurses notes, and as a result, I will discharge patient. jr8 Data interpreted: Pulse oximetry: on room air is 97 %. Interpretation: normal. Counseling: I had a detailed discussion with the patient and/or guardian regarding: the historical points, exam findings, and any diagnostic results supporting the discharge/admit diagnosis, the need for outpatient follow up, a family practitioner, to return to the emergency department if symptoms worsen or persist or if there are any questions or concerns that arise at home. Administered Medications: No medications were administered Disposition: 11:30 Co-signature as Attending Physician, Lyndon Mccallum MD. rn Disposition: 02/21/19 09:46 Discharged to Home. Impression: Acute Bacterial Sinusitis . - Condition is Stable. - Discharge Instructions: Sinusitis, Adult. - Prescriptions for Amoxicillin 875 mg Oral Tablet - take 1 tablet by ORAL route every 12 hours for 10 days; 20 tablet. - Medication Reconciliation Form, Thank You Letter, Antibiotic Education, Prescription Opioid Use, Work release form form. - Follow up: Private Physician; When: 1 week; Reason: Recheck today's complaints, Continuance of care, Re-evaluation by your physician. - Problem is new. - Symptoms have improved. Signatures: Lyndon Mccallum MD MD rn Calderon, Audri, RN RN aa5 Samy Matt PA PA jr8 Philipp Kilgore RN RN bp Corrections: (The following items were deleted from the chart) 10:04 09:46 02/21/2019 09:46 Discharged to Home. Impression: Acute Bacterial Sinusitis . bp Condition is Stable. Forms are Medication Reconciliation Form, Thank You Letter, Antibiotic Education, Prescription Opioid Use. Follow up: Private Physician; When: 1 week; Reason: Recheck today's complaints, Continuance of care, Re-evaluation by your physician. Problem is new. Symptoms have improved. jr8
--- NOTE | 2019-02-21 09:46 | ER ---
Nurse's Notes [facility] Name: Mat Lerma Age: 39 yrs Sex: Male : 1980 Arrival Date: 02/21/2019 Time: 09:02 Bed 19 Private MD: Diagnosis: Acute Bacterial Sinusitis Presentation: 02/21 09:04 Presenting complaint: Patient states: sinus drainage and pressure that began 2-3 days aa5 ago. Pt also reports dry cough. Transition of care: patient was not received from another setting of care. Onset of symptoms was February 2019. Risk Assessment: Do you want to hurt yourself or someone else? Patient reports no desire to harm self or others. Care prior to arrival: None. 09:04 Method Of Arrival: Ambulatory aa5 09:04 Acuity: DIAMOND 4 aa5 10:01 Initial Sepsis Screen: Does the patient meet any 2 criteria? Mean Arterial Pressure bp (MAP) < 65. No. Patient's initial sepsis screen is negative. Does the patient have a suspected source of infection? No. Patient's initial sepsis screen is negative. Triage Assessment: 09:05 Headache History: The patient has had previous headaches and this one is similar to bp previous episodes. General: Appears in no apparent distress. comfortable, Behavior is calm, cooperative, appropriate for age. Pain: Complains of pain in left frontal sinus and right frontal sinus Pain currently is 4 out of 10 on a pain scale. Pain began gradually, Also complains of CONGESTION. Neuro: Level of Consciousness is awake, alert, obeys commands, Oriented to person, place, time, situation, Appropriate for age. Cardiovascular: No deficits noted. Respiratory: Respiratory pattern is regular. GI: No signs and/or symptoms were reported involving the gastrointestinal system. : No signs and/or symptoms were reported regarding the genitourinary system. Derm: No deficits noted. Musculoskeletal: Circulation, motion, and sensation intact. Range of motion: intact in all extremities. Historical: - Allergies: : No Known Allergies; aa5 - PMHx: 09: Hyperlipidemia; Hypertension; aa5 - PSHx: 09: None; aa5 - Immunization history:: Flu vaccine is up to date. - Social history:: Smoking status: Patient/guardian denies using tobacco. - Ebola Screening: : No symptoms or risks identified at this time. Screenin:10 Abuse screen: Denies threats or abuse. Denies injuries from another. Nutritional bp screening: No deficits noted. Tuberculosis screening: No symptoms or risk factors identified. Fall Risk None identified. Assessment: 09:56 Reassessment: PT D/C HOME AMBULATORY, DX WITH ACUTE BACTERIAL SINUSITIS. bp Vital Signs: 09:05 BP 151 / 92; Pulse 85; Resp 16 S; Temp 97.0(TE); Pulse Ox 97% on R/A; Weight 196.41 kg aa5 (R); Height 5 ft. 9 in. (175.26 cm) (R); Pain 4/10; 09:05 Body Mass Index 63.94 (196.41 kg, 175.26 cm) aa5 ED Course: 09:02 Patient arrived in ED. rg4 09:04 Arm band placed on. aa5 09:05 Triage completed. aa5 09:08 Philipp Kilgore, RN is Primary Nurse. bp 09:09 Samy Matt PA is PHCP. jr8 09:09 Lyndon Mccallum MD is Attending Physician. jr8 09:10 Patient has correct armband on for positive identification. Bed in low position. Call bp light in reach. Side rails up X2. 09:57 No provider procedures requiring assistance completed. Patient did not have IV access bp during this emergency room visit. Administered Medications: No medications were administered Outcome: 09:46 Discharge ordered by . jr8 09:57 Discharged to home ambulatory. bp 09:57 Condition: stable 09:57 Discharge instructions given to patient, Instructed on discharge instructions, follow up and referral plans. medication usage, Demonstrated understanding of instructions, follow-up care, medications, Prescriptions given X 1. 10:04 Patient left the ED. bp Signatures: Judie Neves, RN RN aa5 Samy Matt PA PA jr8 Alexia Echeverria rg4 Philipp Kilgore, DARCY RN bp
[2019-02-21 10:09] VITALS: BP 151/92; TEMP 97; O2SAT 97
== END 2019-02-21 10:04 | disposition home or self-care (01) ==
LOC: ER 08:59
DX: J01.90 Acute sinusitis, unspecified (principal); B96.89 Other specified bacterial agents as the cause of diseases classified elsewhere; E78.5 Hyperlipidemia, unspecified; I10 Essential (primary) hypertension
CPT/HCPCS: 99282

== ENCOUNTER 2019-07-24 10:23 | Emergency (ER) | payer OTHER ==
--- OUTSIDE RECORDS SUMMARY | 2019-07-24 10:30 | XMS REPORT ---
:1980 [facility] [address] [place] [address] Care Team Providers Name Role Phone Unavailable Unavailable Unavailable Problems This patient has no known problems. Allergies, Adverse Reactions, Alerts This patient has no known allergies or adverse reactions. Medications This patient has no known medications.
[2019-07-24] MEDS ORDERED: cloNIDine HCl 0.1 MG TAB ONE (10:55)
[2019-07-24] MEDS ORDERED: LISINOPRIL 20 MG TAB ONE (10:56)
[2019-07-24 11:08] LABS: Absolute Lymphocytes (CBC) 1.7 K/uL (0.7-4.9); Basophils % 1.1 % (0-1.3); Hematocrit 40.3 % (39.6-49.0); Lymphocytes % 20.8 % (15.3-44.8); MPV 8.6 fL (7.6-11.3); RBC Red Blood Cell Count 4.94 M/uL (4.33-5.43)
[2019-07-24 11:32] LABS: BUN Blood Urea Nitrogen 12 mg/dL (7-18); Bicarbonate 29 mmol/L (21-32); Glucose Level 101 mg/dL (74-106); NT PRO-BNP 60 pg/mL (<125); Potassium 3.6 mmol/L (3.5-5.1); Sodium Level 142 mmol/L (136-145); Troponin (Emerg Dept Use Only) < 0.02 ng/mL (0.0-0.045)
--- NOTE | 2019-07-24 12:39 | RAD REPORT ---
EXAM DESCRIPTION: RAD - Chest Single View - 07/24/2019 12:24 pm CLINICAL HISTORY: CHEST PAIN Chest pain. COMPARISON: Chest Single View dated 12/14/2018 FINDINGS: Portable technique limits examination quality. The lungs are grossly clear. The heart is mildly prominent in size. No displaced fractures.
--- NOTE | 2019-07-24 12:50 | ER ---
Nurse's Notes [facility] Name: Mat Lerma Age: 39 yrs Sex: Male : 1980 Arrival Date: 07/24/2019 Time: 10:26 Bed 4 Private MD: Diagnosis: Hypertension;Chest pain, unspecified Presentation: 07/24 10:29 Presenting complaint: Patient states: intermittent chest discomfort x 2-3 days ago. Pt aa5 states "I haven't been to the doctor so I haven't been taking my blood pressure and cholesterol medication". Transition of care: patient was not received from another setting of care. Onset of symptoms was July 2019. Risk Assessment: Do you want to hurt yourself or someone else? Patient reports no desire to harm self or others. Initial Sepsis Screen: Does the patient meet any 2 criteria? No. Patient's initial sepsis screen is negative. Does the patient have a suspected source of infection? No. Patient's initial sepsis screen is negative. Care prior to arrival: None. 10:29 Acuity: DIAMOND 3 aa5 10:29 Method Of Arrival: Ambulatory aa5 Historical: - Allergies: 10:29 No Known Allergies; aa5 - Home Meds: 10:29 None [Active]; aa5 - PMHx: 10:29 Hyperlipidemia; Hypertension; aa5 - PSHx: 10:29 None; aa5 - Immunization history:: Flu vaccine is not up to date. - Social history:: Smoking status: Patient uses tobacco products, cigars. - Ebola Screening: : No symptoms or risks identified at this time. - Family history:: not pertinent. - Hospitalizations: : No recent hospitalization is reported. Screenin:48 Abuse screen: Denies threats or abuse. Denies injuries from another. Nutritional ss screening: No deficits noted. Tuberculosis screening: Never had TB. Fall Risk None identified. Assessment: 10:48 General: Appears in no apparent distress. comfortable, Behavior is calm, cooperative, ss Denies fever, feeling ill, fatigue, chills. General: Appears obese. Pain: Complains of pain in anterior aspect of right upper chest Pain currently is 5 out of 10 on a pain scale. Quality of pain is described as throbbing, Pain began 2-3 days ago. Is continuous. Neuro: Level of Consciousness is awake, alert, obeys commands, Oriented to person, place, time, situation, Cooky Machine Operator are equal bilaterally Speech is normal. Cardiovascular: Pulses are palpable in right radial artery and left radial artery. Respiratory: Airway is patent Respiratory effort is even, unlabored, Respiratory pattern is regular, symmetrical, Denies. GI: Abdomen is non-distended, obese. : No signs and/or symptoms were reported regarding the genitourinary system. EENT: Oral mucosa is moist. Derm: Skin is intact, is fragile, Skin is dry, Skin is pink, warm \\T\\ dry. normal. Musculoskeletal: Circulation, motion, and sensation intact. Range of motion: intact in all extremities. 11:42 Reassessment: Patient appears in no apparent distress at this time. Patient and/or iw family updated on plan of care and expected duration. Pain level reassessed. Patient is alert, oriented x 3, equal unlabored respirations, skin warm/dry/pink. pt remains unchanged, pt denies need for pain medicine at this time. 13:05 Neuro: Level of Consciousness is awake, alert, obeys commands, Oriented to person, aa5 place, time, situation. Respiratory: Airway is patent Respiratory effort is even, unlabored, Respiratory pattern is regular, symmetrical. Derm: Skin is dry, Skin is normal, Skin temperature is warm. Vital Signs: 10:30 Pulse 65; Resp 20 S; Temp 97.0(TE); Pulse Ox 98% on R/A; Weight 198.22 kg (R); Height 5 aa5 ft. 9 in. (175.26 cm) (R); Pain 5/10; 10:33 BP 179 / 109; ss 11:42 BP 160 / 100; Pulse 80; Resp 18 S; Pulse Ox 97% on R/A; iw 12:08 BP 164 / 96; Pulse 78; Resp 18 S; Pulse Ox 97% on R/A; iw 10:30 Body Mass Index 64.53 (198.22 kg, 175.26 cm) aa5 ED Course: 10:26 Patient arrived in ED. aa5 10:30 Triage completed. aa5 10:30 Arm band placed on. aa5 10:33 Cherrie Yoo, DARCY is Primary Nurse. iw 10:34 Lyndon Mccallum MD is Attending Physician. rn 10:48 Patient has correct armband on for positive identification. Placed in gown. Bed in low ss position. Call light in reach. monitoring specialist on. Pulse ox on. NIBP on. Warm blanket given. 10:48 Inserted saline lock: 20 gauge in right antecubital area, using aseptic technique. ss Blood collected. 10:48 Patient maintains SpO2 saturation greater than 95% on room air. ss 12:25 XRAY Chest (1 view) In Process Unspecified. EDMS 13:05 No provider procedures requiring assistance completed. IV discontinued, intact, aa5 bleeding controlled, No redness/swelling at site. Pressure dressing applied. Administered Medications: 10:42 CANCELLED (Duplicate Order): cloNIDine 0.2 mg PO once rn 11:01 Drug: cloNIDine 0.1 mg Route: PO; iw 12:31 Follow up: Response: Blood pressure is lowered iw 11:01 Drug: Lisinopril 20 mg Route: PO; iw 12:31 Follow up: Response: No adverse reaction; Blood pressure is lowered iw Outcome: 12:50 Discharge ordered by MD. rn 13:05 Discharged to home ambulatory, with significant other. aa5 13:05 Condition: stable 13:05 Discharge instructions given to patient, Instructed on discharge instructions, follow up and referral plans. medication usage, Demonstrated understanding of instructions, follow-up care, medications, Prescriptions given X 2. 13:10 Patient left the ED. aa5 Signatures: Dispatcher [employer] EDCherrie Red RN RN iw Lyndon Mccallum MD MD rn Calderon, Audri, RN RN aa5 Bryanna Marin RN RN ss Corrections: (The following items were deleted from the chart) 11:50 11:42 Reassessment: Patient appears in no apparent distress at this time. Patient iw and/or family updated on plan of care and expected duration. Pain level reassessed. Patient is alert, oriented x 3, equal unlabored respirations, skin warm/dry/pink. iw
--- NOTE | 2019-07-24 12:51 | EDPHYS ---
Physician Documentation [facility] Name: Mat Lerma Age: 39 yrs Sex: Male : 1980 Arrival Date: 07/24/2019 Time: 10:26 Bed 4 Private MD: ED Physician Lyndon Mccallum HPI: 07/24 10:43 This 39 yrs old Black Male presents to ER via Ambulatory with complaints of Chest Pain. rn 10:43 The patient or guardian reports chest pain that is located primarily in the substernal rn area. The pain radiates to head. Associated signs and symptoms: Pertinent positives: palpitations, Pertinent negatives: abdominal pain, cough, diaphoresis, dizziness, lower extremity pain, lower extremity swelling, recent travel, shortness of breath, syncope, vomiting. The chest pain is described as throbbing. Duration: The patient or guardian reports multiple episodes, that are intermittent, the episodes last approximately 5 minute(s). Modifying factors: The symptoms are alleviated by nothing. the symptoms are aggravated by nothing. Severity of pain: At its worst the pain was mild in the emergency department the pain is unchanged. The patient has not experienced similar symptoms in the past. Reports right sided chest throbbing, radiated to head, no sob/cough/fever/vomiting/diaphoresis. Reports out of BP meds and cholesterol meds for months, thinks may be part of this, just not able to get in and has had friends with strokes so wanted to make sure he was ok. NO trauma, no hx of dvt/pe, no recent surgery. . Historical: - Allergies: 10:29 No Known Allergies; aa5 - Home Meds: 10:29 None [Active]; aa5 - PMHx: 10:29 Hyperlipidemia; Hypertension; aa5 - PSHx: 10:29 None; aa5 - Immunization history:: Flu vaccine is not up to date. - Social history:: Smoking status: Patient uses tobacco products, cigars. - Ebola Screening: : No symptoms or risks identified at this time. - Family history:: not pertinent. - Hospitalizations: : No recent hospitalization is reported. ROS: 10:43 Constitutional: Negative for fever, chills, and weight loss, Eyes: Negative for injury, rn pain, redness, and discharge, Neck: Negative for injury, pain, and swelling, Cardiovascular: Negative for edema, Respiratory: Negative for shortness of breath, cough, wheezing, and pleuritic chest pain, Abdomen/GI: Negative for abdominal pain, nausea, vomiting, diarrhea, and constipation, MS/Extremity: Negative for injury and deformity, Skin: Negative for injury, rash, and discoloration, Neuro: Negative for weakness, numbness, tingling, and seizure. Exam: 10:43 Constitutional: Overweight patient, no acute distress, ambulatory to room without rn dyspnea or difficulty Head/Face: Normocephalic, atraumatic. Eyes: Pupils equal round and reactive to light, extra-ocular motions intact. Lids and lashes normal. Conjunctiva and sclera are non-icteric and not injected. Cornea within normal limits. Periorbital areas with no swelling, redness, or edema. ENT: MMM Neck: Trachea midline, No masses, no JVD Cardiovascular: Regular rate and rhythm. No pulse deficits. Respiratory: Lungs have equal breath sounds bilaterally, clear to auscultation. No increased work of breathing, no retractions or nasal flaring. Abdomen/GI: soft, non-tender MS/ Extremity: Pulses equal, no cyanosis. Neurovascular intact. Full, normal range of motion. Equal circumference. Neuro: Awake and alert, GCS 15, oriented to person, place, time, and situation. Cranial nerves II-XII grossly intact. Motor strength 5/5 in all extremities. Sensory grossly intact. Cerebellar exam normal. Normal gait. 10:47 ECG was reviewed by the Attending Physician. rn Vital Signs: 10:30 Pulse 65; Resp 20 S; Temp 97.0(TE); Pulse Ox 98% on R/A; Weight 198.22 kg (R); Height 5 aa5 ft. 9 in. (175.26 cm) (R); Pain 5/10; 10:33 BP 179 / 109; ss 11:42 BP 160 / 100; Pulse 80; Resp 18 S; Pulse Ox 97% on R/A; iw 12:08 BP 164 / 96; Pulse 78; Resp 18 S; Pulse Ox 97% on R/A; iw 10:30 Body Mass Index 64.53 (198.22 kg, 175.26 cm) aa5 MDM: 10:34 Patient medically screened. rn 12:47 Differential diagnosis: acute pericarditis, anxiety, coronary artery disease chest wall rn pain, congestive heart failure costochondritis, esophagitis, gastritis, pleurisy, pneumonia, pneumothorax. Data reviewed: vital signs, nurses notes, lab test result(s), EKG, radiologic studies, plain films, and as a result, I will discharge patient. 12:47 Response to treatment: the patient's symptoms have markedly improved after treatment, rn and as a result, I will discharge patient. Special discussion: Based on the patient's history, exam, and Dx evaluation, there is no indication for emergent intervention or inpatient Tx. It is understood by the patient/guardian that if the Sx's persist or worsen they need to return immediately for re-evaluation. I discussed with the patient/guardian in detail that at this point there is no indication for admission to the hospital. It is understood, however, that if the symptoms persist or worsen the patient needs to return immediately for re-evaluation. ED course: Had long discussion with patient, neg trop, no ischemia on ECG, neg cxr, will dc home and refill HTN and HLD meds, Return precautions given and understood. Also recommended diet and exercise with weight loss. . 07/24 10:42 Order name: Basic Metabolic Panel; Complete Time: 12:00 rn 07/24 10:42 Order name: CBC with Diff; Complete Time: 12:00 rn 07/24 10:42 Order name: NT PRO-BNP; Complete Time: 12:00 rn 07/24 10:42 Order name: Troponin (emerg Dept Use Only); Complete Time: 12:00 rn 07/24 10:42 Order name: XRAY Chest (1 view); Complete Time: 12:47 rn 07/24 10:42 Order name: EKG; Complete Time: 10:44 rn 07/24 10:42 Order name: Cardiac monitoring; Complete Time: 10:47 rn 07/24 10:42 Order name: EKG - Nurse/Tech; Complete Time: 10:47 rn 07/24 10:42 Order name: IV Saline Lock; Complete Time: 10:48 rn 07/24 10:42 Order name: Labs collected and sent; Complete Time: 10:48 rn 07/24 10:42 Order name: O2 Per Protocol; Complete Time: 10:48 rn 07/24 10:42 Order name: O2 Sat Monitoring; Complete Time: 10:48 rn EC:47 Rate is 82 beats/min. Rhythm is regular. QRS [place] is Normal. MD interval is normal. QRS rn interval is normal. QT interval is normal. No Q waves. T waves are Normal. No ST changes noted. Clinical impression: No evidence of ischemia and PAC. Interpreted by me. Reviewed by me. Administered Medications: 10:42 CANCELLED (Duplicate Order): cloNIDine 0.2 mg PO once rn 11:01 Drug: cloNIDine 0.1 mg Route: PO; iw 12:31 Follow up: Response: Blood pressure is lowered iw 11:01 Drug: Lisinopril 20 mg Route: PO; iw 12:31 Follow up: Response: No adverse reaction; Blood pressure is lowered iw Disposition: 07/24/19 12:50 Discharged to Home. Impression: Hypertension, Chest pain, unspecified. - Condition is Stable. - Discharge Instructions: Nonspecific Chest Pain, Hypertension. - Prescriptions for Lisinopril 20 mg Oral Tablet - take 1 tablet by ORAL route 2 times per day; 60 tablet. Lovastatin 10 mg Oral Tablet - take 1 tablet by ORAL route once daily with evening meal; 30 tablet. - Work release form, Medication Reconciliation Form, Thank You Letter, Antibiotic Education, Prescription Opioid Use form. - Follow up: Private Physician; When: As needed; Reason: Recheck today's complaints, Re-evaluation by your physician. - Problem is new. - Symptoms have improved. Signatures: Dispatcher [employer] EDMS Cherrie Yoo, RN DARCY iw Lyndon Mccallum MD MD rn Calderon, Audri, RN RN aa5 Corrections: (The following items were deleted from the chart) 10:42 10:42 cloNIDine 0.2 mg PO once ordered. rn rn 13:10 12:50 07/24/2019 12:50 Discharged to Home. Impression: Hypertension; Chest pain, aa5 unspecified. Condition is Stable. Forms are Medication Reconciliation Form, Thank You Letter, Antibiotic Education, Prescription Opioid Use. Follow up: Private Physician; When: As needed; Reason: Recheck today's complaints, Re-evaluation by your physician. Problem is new. Symptoms have improved. rn
[2019-07-24 16:42] VITALS: TEMP 97
[2019-07-24 16:44] VITALS: O2SAT 97
[2019-07-24 16:45] VITALS: BP 164/96
--- NOTE | 2019-07-24 16:56 | EKG ---
Test Date: 2019-07-24 Test Time: 10:45:55 Application Release Manager: TANO MEASUREMENT RESULTS: Intervals: Rate: 82 DE: 160 QRSD: 96 QT: 406 QTc: 474 Hustler: P: 47 DE: 160 QRS: 39 T: 30 INTERPRETIVE STATEMENTS: Sinus rhythm with premature supraventricular complexes Otherwise normal ECG Compared to ECG 12/14/2018 10:31:12 Atrial premature complex(es) now present Electronically Signed On 07-24-19 16:55:14 CDT by Sam Red
== END 2019-07-24 13:10 | disposition home or self-care (01) ==
LOC: ER 10:23
DX: I10 Essential (primary) hypertension (principal); Z72.0 Tobacco use
CPT/HCPCS: 36415; 71045; 80048; 83880; 84484; 85025; 93005; 99285

== ENCOUNTER 2020-01-24 21:31 | Emergency (ER) | payer SELFPAY ==
--- OUTSIDE RECORDS SUMMARY | 2020-01-24 21:34 | XMS REPORT | Summary of Care ---
:1980 Author Organization [facility] - [facility] Address [address] [place] [address] Care Team Providers Name Role Phone Juan J Fernandez MD Primary Care Provider Encounter Details Date Type Department Care Team Description 12/12/2019 Orders Only [facility] Doctor Unassigned, No [address] [facility] Name [place] [id number] [place] [address] Allergies No Known Allergiesdocumented as of this encounter (statuses as of 12/12/2019) Medications Medication Sig Dispensed Refills Start Date End Date Status azithromycin Take 500 mg day 1, 6 tablet 0 12/05/2018 Active (ZITHROMAX Z-ALLYSSA) 250 then 250 mg days 2 mg tabletIndications: to 5. Acute bronchitis, unspecified organism benzonatate 100 mg Take 1 capsule by 30 capsule 0 12/05/2018 Active capsuleIndications: mouth 3 (three) Acute bronchitis, times daily as unspecified organism needed for Cough. lisinopril 20 mg Take 1 tablet by 60 tablet 1 12/08/2018 Active tabletIndications: mouth 2 (two) Acute bronchitis, times daily. unspecified organism albuterol (PROAIR Inhale 2 Puffs 8.5 g 2 12/08/2018 Active HFA) 90 mcg/actuation every 6 (six) inhalerIndications: hours as needed Acute bronchitis, for Wheezing or unspecified organism Shortness of Breath. 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 documented as of this encounter Last Filed Vital Signs Not on filedocumented in this encounter Plan of Treatment Health Maintenance Due Date Last Done Comments PNEUMOCOCCAL 0-64 YEARS COMBINED SERIES (1 of 1 - 1987 PPSV23) VARICELLA VACCINES (1 of 2 - 13+ 2-dose series) 1994 DTaP,Tdap,and Td Vaccines (1 - Tdap) 01/14/2000 INFLUENZA VACCINE (#1) 2019 documented as of this encounter Procedures Procedure Name Priority Date/Time Associated Diagnosis Comments CONSENT/REFUSAL FOR Routine 12/12/2019 12:00 PM [employer] [facility] MANAGER DIAGNOSIS AND TREATMENT documented in this encounter Results Not on filedocumented in this encounter Insurance Payer Benefit Plan / Subscriber ID Effective Dates Phone Address Type Group [facility] [id number] 2018-[employer] HMO/PPO/[facility] PPO t S documented as of this encounter
--- OUTSIDE RECORDS SUMMARY | 2020-01-24 21:34 | XMS REPORT | Summary of Care ---
:1980 Author Organization [facility] - Health Address [address] [place] [address] Care Team Providers Name Role Phone Juan J Fernandez MD Primary Care Provider Reason for Visit Reason Comments Headache Cough Auth/Cert Status Reason Specialty Diagnoses / Referred By Referred To Procedures Contact Contact [facility] [address] [place] [address] [place] [address] Encounter Details Date Type Department Care Team Description 12/12/2019 Emergency ADC-Emergency Dax Bacon, Flu-like symptoms ( Primary Dx); Department Body aches [address] [place] [address] [address] [place] [address] [id number] [place], [place] [id number] Allergies No Known Allergiesdocumented as of this encounter (statuses as of 12/12/2019) Medications Medication Sig Dispensed Refills Start Date End Date Status azithromycin Take 500 mg day 6 tablet 0 12/05/2018 Active (ZITHROMAX Z-ALLYSSA) 1, then 250 mg 250 mg days 2 to 5. tabletIndications: Acute bronchitis, unspecified organism benzonatate 100 mg [...] 8.5 g 2 12/08/2018 Active HFA) 90 every 6 (six) mcg/actuation hours as needed inhalerIndications: for Wheezing or Acute bronchitis, Shortness of unspecified organism Breath. oseltamivir 75 mg Take 1 capsule by 10 capsule 0 12/12/2019 12/17/2019 Active capsuleIndications: mouth 2 (two) Flu-like symptoms times daily for 5 days. lisinopril 10 mg Take 1 tablet by 30 tablet 0 12/12/2019 Active tabletIndications: mouth at bedtime. Flu-like symptoms lovastatin 20 mg Take 1 tablet by 30 tablet 0 12/12/2019 Active tabletIndications: mouth at bedtime. Flu-like symptoms codeine-guaifenesin Take 5 mL by 240 mL 0 12/12/2019 Active 10-100 mg/5 mL mouth every 6 solutionIndications: (six) hours as Flu-like symptoms needed for Cough. documented as of this encounter (statuses as [...] of this encounter Last Filed Vital Signs Vital Sign Reading Time Taken Comments Blood Pressure 157/113 12/12/2019 12:20 PM UNDERCOVER AGENT Pulse 84 12/12/2019 12:18 PM UNDERCOVER AGENT Temperature 36.9 C (98.4 F) 12/12/2019 12:18 PM UNDERCOVER AGENT Respiratory Rate 19 12/12/2019 12:18 PM UNDERCOVER AGENT Oxygen Saturation 97% 12/12/2019 12:18 PM UNDERCOVER AGENT Inhaled Oxygen Concentration - - Weight 195 kg (430 lb) 12/12/2019 12:18 PM UNDERCOVER AGENT Height 175.3 cm (5' 9") 12/12/2019 12:18 PM UNDERCOVER AGENT Body Mass Index 63.5 12/12/2019 12:18 PM UNDERCOVER AGENT documented in this encounter Discharge Instructions Dax Gastelum MD - 12/12/2019DIAGNOSIS 1. FLU-LIKE SYMPTOMS 2. HYPERTENSION 3. HYPERCHOLESTEROLEMIA NO LIFE-THREATENING FINDINGS ON TODAY'S EXAM. PROCEDURES IN THE ER TODAY: NONE MEDICATIONS ADMINISTERED IN THE ER TODAY: TAMIFLU YOUR PRESCRIPTIONS AND [id number] MEDICATION RECOMMENDATIONS: RECOMMEND TAMIFLU PRESCRIBED UNTIL ALL GONE RECOMMEND IBUPROFEN 800MG (4 PTRA-EWI-XYHIDKU TABLETS) EVERY 8 HOURS NEEDED FOR PAIN. RECOMMEND ROBITUSSIN WITH CODEINE PRESCRIBED FOR COUGH RESUME YOUR LISINOPRIL AND LOVASTATIN PRESCRIBED SPECIAL CARE INSTRUCTIONS: SEE ATTACHMENTS FOLLOW-UP RECOMMENDATIONS: RECOMMEND FOLLOW-UP WITH A PRIMARY CARE PROVIDER OR SPECIALIST IN A WEEK, ESPECIALLY IF NO IMPROVEMENT IN SYMPTOMS. IF YOU WISH TO FOLLOW-UP WITHIN THE [facility], TRY THESE OPTIONS ( CLINIC APPOINTMENTS AVAILABLE ON URMD-XO-HXOE BASIS): 1. SCHEDULE AN APPOINTMENT ONLINE AT WWW[facility] 2. OR CALL THE [facility] AT OR 3. OR CALL YOUR [facility] PHYSICIAN'S OFFICE DIRECTLY IF YOU ARE ALREADY AN ESTABLISHED [facility] PATIENT. MAY FOLLOW-UP WITH A PROVIDER OF YOUR CHOICE, SUCH : 1. A PHYSICIAN OF YOUR CHOICE 2. [facility], . LOCATIONS IN [facility] 3. [facility], [address] [place] [address]; RETURN TO ER FOR WORSENING OF SYMPTOMS. AttachmentsThe following attachments cannot be sent through Care Everywhere.( Influenza), The Flu (Tongan)Colds, Adult Self-Care for (Tongan)Oseltamivir capsules (Tongan)Lisinopril tablets (Tongan)Lovastatin tablets (Tongan) documented in this encounter Plan of Treatment Health Maintenance Due Date Last Done Comments PNEUMOCOCCAL 0-64 YEARS COMBINED SERIES (1 of 1 - 1987 PPSV23) VARICELLA VACCINES (1 of 2 - 13+ 2-dose series) 1994 DTaP,Tdap,and Td Vaccines (1 - Tdap) 01/14/2000 INFLUENZA VACCINE (#1) 2019 documented as of this encounter Procedures Procedure Name Priority Date/Time Associated Diagnosis Comments ADC,CLC OR LCC ONLY STAT 12/12/2019 12:21 PM Body aches Results for this - INFLUENZA A & B UNDERCOVER AGENT procedure are in DIRECT ANTIGEN the results section. NOTICE OF PRIVACY Routine 12/12/2019 12:00 PM PRACTICES UNDERCOVER AGENT documented in this encounter Results ADC,CLC OR LCC ONLY - INFLUENZA A & B DIRECT ANTIGEN (12/12/2019 12:21 PM UNDERCOVER AGENT) Influenza A Negative Negative [facility] Influenza B Negative Negative [facility] Specimen Swab - NARE, RIGHT SIDE Performing Organization Address City/State/Zipcode Phone Number [facility] CLIA: [id number], [address] [place] [address] documented in this encounter Visit Diagnoses Diagnosis Flu-like symptoms - Primary Influenza with other respiratory manifestations Body aches Generalized pain documented in this encounter Administered Medications Medication Order MAR Action Action Date Dose Rate Site oseltamivir (TAMIFLU) capsule 75 Given 12/12/2019 3:36 PM UNDERCOVER AGENT 75 mg mg 75 mg, Oral, ONCE, 1 dose, 12/12/19 at 1615, NI documented in this encounter
--- OUTSIDE RECORDS SUMMARY | 2020-01-24 21:34 | XMS REPORT ---
:1980 Author Organization [facility] Address [address] [place] [address] Care Team Providers Name Role Phone Unavailable Unavailable Unavailable Payers Payer Name Policy Type Policy Number Effective Date Expiration Date Problems This patient has no known problems. Allergies, Adverse Reactions, Alerts Allergy Allergy Status Severity Reaction(s) Onset Inactive Treating Comments Name Type Date Date Clinician No Known DA Active U 2019-07 Allergies 00:00:0 0 Medications This patient has no known medications. Results Test Description Test Time Test Comments Text Results Atomic Results Result Comments TROPONIN-I 2019-07-24 21:32:00 Test Item Value Reference Range Comments TROPONIN-I (test code=TROPI) < 0.015 NG/ML 0.000-0.045 Negative: </=0.045 Positive: >/=0.046 Correlation with serial results, other cardiac markers, and clinical findings is necessary to determine the clinical significance of this result. Quantitative results using different methodologies should not be compared to one another as numerical results may varyby method. Completed by Nursing: NOCOMPREHENSIVE METABOLIC [id number] 19:14:00 Test Item Value Reference Range Comments SODIUM (test code=NA) 139 mmol/L 134-147 POTASSIUM (test code=K) 3.5 mmol/L 3.4-5.0 CHLORIDE (test code=CL) 104 mmol/L 100-108 CARBON DIOXIDE (test code=CO2) 29 mmol/L 21-32 ANION GAP (test code=GAP) 6.0 GAP calc 4.0-15.0 GLUCOSE (test code=GLU) 96 MG/DL 70-110 BLOOD UREA NITROGEN (test code=BUN) 13 MG/DL 7-18 GLOMERULAR FILTRATION RATE (test >=60 max estimate estGFR >60 code=GFR) CREATININE (test code=CREAT) 0.9 MG/DL 0.8-1.3 TOTAL PROTEIN (test code=PROT) 7.5 G/DL 6.4-8.2 ALBUMIN (test code=ALB) 3.3 G/DL 3.4-5.0 GLOBULIN (test code=GLOB) 4.2 GM/dL ALBUMIN/GLOBULIN RATIO (test 0.8 RATIO 1.2-2.2 code=A/G) CALCIUM (test code=CA) 8.2 MG/DL 8.5-10.1 BILIRUBIN TOTAL (test code=BILT) 0.50 MG/DL 0.2-1.2 SGOT/AST (test code=AST) 16 Unit/L 15-37 SGPT/ALT (test code=ALT) 12 Unit/L 12-78 ALKALINE PHOSPHATASE TOTAL (test 56 Unit/L 50-136 code=ALKP) RULE OUT MA [id number] 19:14:00 Test Item Value Reference Range Comments CREATINE KINASE (CK) 166 Unit/L 26-192 (test code=CK) TROPONIN-I (test < 0.015 NG/ML 0.000-0.045 Negative: </=0.045 Positive: code=TROPI) >/=0.046 Correlation with serial results, other cardiac markers, and clinical findings is necessary to determine the clinical significance of this result. Quantitative results using different methodologies should not be compared to one another as numerical results may varyby method. - XR CHEST 2 [id number] 18:50:00 Name: ZARIA COOK [facility] : 1980 Age/S: 39 / M [address] Unit #: [id number] Loc: [place] [address] Phys: Rodrigo Alvarado MD Acct: [id number] Dis Date: Status: REG ER PHONE #: [phone] Exam Date: 07/24/2019 9474 FAX #: Reason: chest pain EXAMS: CPT: [id number] XR CHEST 2 V 09679 Fluoro Time: DAP (Gy m2): Air Kerma (mGy): LOCATION: Q15 HISTORY: 39-year-old male with chest discomfort. COMMENT: Frontal and lateral chest radiographs were examined. The lungs are clear. The cardiac silhouette, adrian, and mediastinumare unremarkable. The skeleton and soft tissues are unremarkable. staff software engineer leads are present. IMPRESSION: Unremarkable radiographic examination of the chest. at 1850 Reported and signed by: Dax Mazariegos M.D. CC: Rodrigo Alvarado MD; Ning Milton NP PAGE 1 Signed Report Name: [facility] 1980 Age/S: 39 / M [address] # : [id number] Loc: [place] [address] Phys: Rodrigo Alvarado MD Acct: [id number] Dis Date: Status:REG ER PHONE #: [phone] Exam Date: 07/24/2019 1822 FAX #: Reason: chest pain EXAMS: CPT: [id number] XR CHEST 2 V 97217 Fluoro Time: DAP (Gy m2) : Air Kerma (mGy): <Continued> Technologist: HAYLEE CHRISTIANSON, RT(R)(CT)(MR); ... Trnscb Date/Time: 07/24/2019 (1849) [id number] Orig Print D/T: S: 07/24/2019 (1853) PAGE 2 Signed ReportCBC W/O [id number] 18:49:00 Test Item Value Reference Range Comments WHITE BLOOD CELL (test code=WBC) 9.0 K/mm3 3.5-11.0 RED BLOOD CELL (test code=RBC) 4.95 M/mm3 4.70-6.10 HEMOGLOBIN (test code=HGB) 13.4 G/DL 12.3-15.9 HEMATOCRIT (test code=HCT) 41.4 % 35.8-46.7 MEAN CELL VOLUME (test code=MCV) 83.6 Fl 86.3-98.9 MEAN CELL HGB (test code=MCH) 27.1 pg 28.9-34.4 MEAN CELL HGB CONCETRATION (test code=MCHC) 32.4 G/DL 32.1-34.5 RED CELL DISTRIBUTION WIDTH (test code=RDW) 15.4 SD 11.5-14.5 PLATELET COUNT (test code=PLT) 260.0 K/mm3 150-450 MEAN PLATELET VOLUME (test code=MPV) 10.30 fL 7.0-9.6 TROPONIN I [id number] 18:48:00 Test Item Value Reference Range Comments TROPONIN I RAPID (test 0.00 ng/mL 0.00-0.08 - The use of serial sampling code=TROPIRAP) and testing protocol is a recommended practice- An elevated troponin level alone is often not sufficient for diagnosis of myocardial infarction.
--- OUTSIDE RECORDS SUMMARY | 2020-01-24 21:35 | XMS REPORT | Summary of Care ---
:1980 Author Organization [facility] - Health Address [address] [place] [address] Care Team Providers Name Role Phone Juan J Fernandez MD Primary Care Provider Reason for Referral Radiology Services (STAT) Status Reason Specialty Diagnoses / Referred By Referred To Procedures Contact Contact New Request Diagnostic Diagnoses Pain of right machine handJa Solorzano, Radiology Procedures XR HAND 3+ VW RIGHT DO [address] [facility]. [address] [place] [address] Reason for Visit Reason Comments FLU Encounter Details Date Type Department Care Team Description 01/22/2020 Emergency ADC-Emergency Reagan Lindsey, Flu-like symptoms ( Primary Dx); Department PAC Pain of right hand [address] [place] [address] [address] [place] [address] [facility] [address] [place] [address] Allergies No Known Allergiesdocumented as of this encounter (statuses as of 01/22/2020) Medications Medication Sig Dispensed Refills Start Date [...] Acute bronchitis, Shortness of unspecified organism Breath. lisinopril 10 mg Take 1 tablet by 30 tablet 0 12/12/2019 Active tabletIndications: mouth at bedtime. Flu-like symptoms lovastatin 20 mg Take 1 tablet by 30 tablet 0 12/12/2019 Active tabletIndications: mouth at bedtime. Flu-like symptoms codeine-guaifenesin Take 5 mL by 240 mL 0 12/12/2019 Active 10-100 mg/5 mL mouth every 6 solutionIndications: (six) hours as Flu-like symptoms needed for Cough. baloxavir marboxiL Take 2 tablets by 2 tablet 0 01/22/2020 01/22/2020 Active (XOFLUZA) 40 mg mouth once now tabletIndications: for 1 dose. 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 SOB (shortness of breath) 12/07/2018 Morbid obesity with body mass index of 50 or higher 12/07/2018 documented as of this encounter (statuses as of 01/22/2020) Social History Tobacco Use Types Packs/Day Years [...] Sign Reading Time Taken Comments Blood Pressure 155/100 01/22/2020 8:06 PM CDT Pulse 89 01/22/2020 8:06 PM CDT Temperature 37.5 C (99.5 F) 01/22/2020 7:58 PM CDT Respiratory Rate 18 01/22/2020 8:06 PM CDT Oxygen Saturation 100% 01/22/2020 8:06 PM CDT Inhaled Oxygen Concentration - - Weight 208.2 kg (459 lb) 01/22/2020 6:00 PM CDT Height 175.3 cm (5' 9") 01/22/2020 6:00 PM CDT Body Mass Index 67.78 01/22/2020 6:00 PM CDT documented in this encounter Discharge Instructions Ruel Holcomb RN - 01/22/2020Pt given printed and verbal discharge instructions regarding flu like symptoms, encouraged hydration, Prescriptions provided Discussed ibuprofen and to take with food to avoid GI distress. Pt verbalized understanding of instructions, pt awake alert oriented, resp reg unlabored, skin w/d, color appropriate for race, moves all ext well,pt encouraged to follow up with pcp Advised to seek medical attention for new/prolonged/worsening of symptoms, Symptoms improved No adverse reaction to meds given in ER noted upon discharge Awake, alert oriented, resp reg unlabored, skin w/d, pt leaving amb with steady gait, in no apparent distress, AttachmentsThe following attachments cannot be sent through Care Everywhere.( Adult), Influenza ([place])Hand Contusion ([place])documented in this encounter Plan of Treatment Health Maintenance Due Date Last Done Comments VARICELLA VACCINES (1 of 2 - 2-dose childhood series) 1982 PNEUMOCOCCAL 0-64 YEARS COMBINED SERIES (1 of 1 - 1987 PPSV23) DTaP,Tdap,and Td Vaccines (1 - Tdap) 01/14/1992 INFLUENZA VACCINE (#1) 2019 documented as of this encounter Procedures Procedure Name Priority Date/Time Associated Diagnosis Comments XR HAND 3+ VW RIGHT STAT 01/22/2020 6:29 PM Pain of right hand Results for this CDT procedure are in the results section. ADC,CLC OR LCC ONLY STAT 01/22/2020 6:07 PM Flu-like symptoms Results for this - INFLUENZA A & B CDT procedure are in DIRECT ANTIGEN the results section. CONSENT/REFUSAL FOR Routine 01/22/2020 5:41 PM DIAGNOSIS AND CDT TREATMENT documented in this encounter Results XR HAND 3+ VW RIGHT (01/22/2020 6:29 PM CDT) Specimen Impressions Performed At PACS/VR/DOSE No acute bony abnormality. Preliminary Report Dictated by Resident: Cruz Ramirez I, Harrison Echeverria MD., have reviewed this study and agree with the above report. Narrative Performed At EXAM: XR HAND 3+ VW RIGHT PACS/VR/DOSE HISTORY: hand pain after hitting something COMPARISON: None. FINDINGS: Imaging of the hand demonstrates acute fractures or dislocations. The joint spaces are preserved. Soft tissues are unremarkable. Procedure Note [facility], Radiant Results Inft User - 01/22/2020 8:17 PM CDT EXAM: XR HAND 3+ VW RIGHT HISTORY: hand pain after hitting something COMPARISON: None. FINDINGS: Imaging of the hand demonstrates acute fractures or dislocations. The joint spaces are preserved. Soft tissues are unremarkable. IMPRESSION No acute bony abnormality. Preliminary Report Dictated by Resident: Harrison Mccoy MD., have reviewed this study and agree with the above report. Performing Organization Address [facility] Phone Number PACS/VR/DOSE ADC,CLC OR LCC ONLY - INFLUENZA A & B DIRECT ANTIGEN (01/22/2020 6:07 PM CDT) Influenza A Negative Negative [facility] Influenza B Negative Negative [facility] Specimen Swab - NARE, LEFT SIDE Performing Organization Address [facility] Phone Number [facility] CLIA: [id number], [address] [place] [address] [phone] documented in this encounter Visit Diagnoses Diagnosis Flu-like symptoms - Primary Influenza with other respiratory manifestations Pain of right hand Pain in limb documented in this encounter Administered Medications Medication Order MAR Action Action Date Dose Rate Site ibuprofen (IBU) tablet 800 mg Given 01/22/2020 6:07 PM CDT 800 mg 800 mg, Oral, ONCE, 1 dose, 01/22/20 at 1915, NI documented in this encounter documented as of this encounter
[2020-01-24] MEDS ORDERED: NA CHLORIDE 0.9% 1,000 ML ONE (23:05)
[2020-01-24] MEDS ORDERED: CEFTRIAXONE/SWI 1gm 2 GM/20 ML SYR ONE (23:06)
[2020-01-24 23:29] LABS: Absolute Lymphocytes (CBC) 1.5 K/uL (0.7-4.9); Basophils % 0.7 % (0-1.3); Hematocrit 41.2 % (39.6-49.0); Lymphocytes % 14.6 % (15.3-44.8); MPV 8.4 fL (7.6-11.3); RBC Red Blood Cell Count 4.96 M/uL (4.33-5.43)
[2020-01-24 23:41] LABS: ALT/SGPT 25 U/L (12-78); AST/SGOT 33 U/L (15-37); Albumin 3.3 g/dL (3.4-5.0); Alkaline Phosphatase 102 U/L (45-117); BUN Blood Urea Nitrogen 12 mg/dL (7-18); Bicarbonate 30 mmol/L (21-32); Bilirubin Total 0.3 mg/dL (0.2-1.0); Glucose Level 94 mg/dL (74-106); Potassium 3.9 mmol/L (3.5-5.1); Protein, Total 8.1 g/dL (6.4-8.2); Sodium Level 139 mmol/L (136-145)
[2020-01-24] MEDS ORDERED: IBUPROFEN 400 MG TAB ONE (23:47)
[2020-01-24] MEDS ORDERED: AMOX/K CLAV 875 MG TAB ONE (23:47)
--- NOTE | 2020-01-24 23:47 | EDPHYS ---
Physician Documentation [facility] Name: Mat Lerma Age: 40 yrs Sex: Male : 1980 Arrival Date: 01/24/2020 Time: 21:34 Bed 17 Private MD: DESEAN Physician Dez Beltran HPI: 01/23 22:27 This 40 yrs old Black Male presents to ER via Ambulatory with complaints of Sore freddy Throat, Neck Pain, >24Hrs Old, Shortness Of Breath, Back Pain. 22:27 This 40 yrs old Black Male presents to ER via Ambulatory with complaints of Sore freddy Throat, Neck Pain, >24Hrs Old, Shortness Of Breath, Back Pain. 22:27 The patient presents with sore throat. The patient describes throat pain as constant, freddy raw. Onset: The symptoms/episode began/occurred 2 day(s) ago. Severity of symptoms: At their worst the symptoms were mild, moderate, in the emergency department the symptoms are unchanged. Modifying factors: The symptoms are alleviated by nothing. Associated signs and symptoms: The patient has no apparent associated signs or symptoms. The patient has not experienced similar symptoms in the past. Historical: - Allergies: 21:46 No Known Allergies; aj1 - Home Meds: 21:46 lisinopril-hydrochlorothiazide 20-12.5 mg Oral tab 1 tab twice a day [Active]; aj1 lovastatin 20 mg Oral tab 1 tab once daily [Active]; - PMHx: 21:46 Hyperlipidemia; Hypertension; aj1 - Immunization history:: Flu vaccine is not up to date. - Social history:: Smoking status: Patient/guardian denies using tobacco. - Family history:: not pertinent. ROS: 22:27 Constitutional: Negative for fever, chills, and weight loss, Eyes: Negative for injury, freddy pain, redness, and discharge, Neck: Negative for injury, pain, and swelling, Cardiovascular: Negative for chest pain, palpitations, and edema, Respiratory: Negative for shortness of breath, cough, wheezing, and pleuritic chest pain, Abdomen/GI: Negative for abdominal pain, nausea, vomiting, diarrhea, and constipation, Back: Negative for injury and pain, : Negative for injury, bleeding, discharge, and swelling, MS/Extremity: Negative for injury and deformity, Skin: Negative for injury, rash, and discoloration, Neuro: Negative for headache, weakness, numbness, tingling, and seizure. 22:27 ENT: Positive for rhinorrhea, sore throat. Exam: 22:27 Constitutional: This is a well developed, well nourished patient who is awake, alert, freddy and in no acute distress. Head/Face: Normocephalic, atraumatic. Eyes: Pupils equal round and reactive to light, extra-ocular motions intact. Lids and lashes normal. Conjunctiva and sclera are non-icteric and not injected. Cornea within normal limits. Periorbital areas with no swelling, redness, or edema. Neck: Trachea midline, no thyromegaly or masses palpated, and no cervical lymphadenopathy. Supple, full range of motion without nuchal rigidity, or vertebral point tenderness. No Meningismus. Chest/axilla: Normal chest wall appearance and motion. Nontender with no deformity. No lesions are appreciated. Cardiovascular: Regular rate and rhythm with a normal S1 and S2. No gallops, murmurs, or rubs. Normal PMI, no JVD. No pulse deficits. Respiratory: Lungs have equal breath sounds bilaterally, clear to auscultation and percussion. No rales, rhonchi or wheezes noted. No increased work of breathing, no retractions or nasal flaring. Abdomen/GI: Soft, non-tender, with normal bowel sounds. No distension or tympany. No guarding or rebound. No evidence of tenderness throughout. Back: No spinal tenderness. No costovertebral tenderness. Full range of motion. Male : Normal genitalia with no discharge or lesions. Skin: Warm, dry with normal turgor. Normal color with no rashes, no lesions, and no evidence of cellulitis. MS/ Extremity: Pulses equal, no cyanosis. Neurovascular intact. Full, normal range of motion. Neuro: Awake and alert, GCS 15, oriented to person, place, time, and situation. Cranial nerves II-XII grossly intact. Motor strength 5/5 in all extremities. Sensory grossly intact. Cerebellar exam normal. Normal gait. Psych: Awake, alert, with orientation to person, place and time. Behavior, mood, and affect are within normal limits. 22:27 ENT: Posterior pharynx: Tonsils: enlarged on the right, enlarged on the left, bilaterally enlarged, with erythema, Uvula: normal, midline, non-edematous, no erythema, swelling, that is mild, erythema, that is mild, exudate, that is mild, peritonsillar mass, is not appreciated, pooling of secretions, is not appreciated. 23:36 Neck: ROM/movement: is normal, no acute changes, Meningeal signs: are not present, [facility] Kernig's sign is negative, Brudzinski's sign is negative, nuchal rigidity, is not appreciated. 23:43 Neck: Lymph nodes: lymphadenopathy is appreciated, anterior cervical nodes. [facility] Vital Signs: 21:46 BP 198 / 108; Pulse 88; Resp 18; Temp 98.1; Pulse Ox 99% on R/A; Weight 199.58 kg (R); 1 Height 5 ft. 9 in. (175.26 cm) (R); Pain 6/10; 23:00 BP 174 / 98; Pulse 86; Resp 18; Pulse Ox 99% ; 01/24 00:00 BP 168 / 102; Pulse 91; Resp 18; Pulse Ox 98% on R/A; 01/23 21:46 Body Mass Index 64.98 (199.58 kg, 175.26 cm) [facility] MDM: 01/23 21:53 Patient medically screened. [facility] 22:29 Data reviewed: vital signs, nurses notes, lab test result(s), radiologic studies, plain [facility] films. 01/23 22:26 Order name: Flu; Complete Time: 23:45 01/23 22:26 Order name: Strep; Complete Time: 23:45 01/23 22:30 Order name: CBC with Diff; Complete Time: 23:35 [facility] 01/23 22:30 Order name: Comprehensive Metabolic Panel; Complete Time: 23:45 [facility] 01/23 22:30 Order name: Chest Pa And Lat (2 Views) XRAY [facility] 01/24 00:18 Order name: Urine Dipstick--Ancillary (enter results) [facility] 01/23 22:30 Order name: Urine Dipstick-Ancillary (obtain specimen); Complete Time: 23:24 [facility] Administered Medications: 23:00 Drug: NS 0.9% 1000 ml Route: IV; Rate: 1 bolus; Site: right antecubital; 01/24 00:13 Follow up: Response: No adverse reaction; IV Status: Completed infusion 01/23 23:00 Drug: Rocephin 2 grams Route: IV; Rate: per protocol; Site: right antecubital; 01/24 00:13 Follow up: Response: No adverse reaction; IV Status: Completed infusion 01/23 23:40 Drug: Augmentin 875 mg Route: PO; 01/24 00:13 Follow up: Response: No adverse reaction 01/23 23:40 Drug: Motrin 800 mg Route: PO; 01/24 00:12 Follow up: Response: No adverse reaction; Pain is decreased Disposition: 01/24/20 23:43 Discharged to Home. Impression: Acute tonsillitis, Fever, unspecified, Cough, Urinary tract infection, site not specified, Obesity, unspecified, Essential (primary) hypertension. - Condition is Stable. - Discharge Instructions: Bronchiolitis, Pediatric, Fever, Adult, Hypertension, Obesity, Adult, Tonsillitis, Urinary Tract Infection, Adult, Tonsillitis, Khas-on-Yfmg, Urinary Tract Infection, Adult, Ffwk-ir-Jgys, Hypertension, Qjcr-wz-Vdeg, Cough, Adult, Dbmj-bc-Mxkn, How to Take Your Blood Pressure, Atuj-pm-Kzec, Cough, Adult, Managing Your Hypertension. - Prescriptions for Augmentin 875- 125 mg Oral Tablet - take 1 tablet by ORAL route every 12 hours for 10 days; 20 tablet. - Medication Reconciliation Form, Thank You Letter, Antibiotic Education, Prescription Opioid Use, Work release form form. - Follow up: Private Physician; When: 2 - 3 days; Reason: Recheck today's complaints, Continuance of care, Re-evaluation by your physician. - Problem is new. - Symptoms have improved. Signatures: Dispatcher [employer] Brook Meza RN RN aj1 Dez Beltran MD MD cha Habalo, Winsy Corrections: (The following items were deleted from the chart) 00:19 01/23 23:43 01/24/2020 23:43 Discharged to Home. Impression: Acute tonsillitis; Fever, wh unspecified; Cough; Urinary tract infection, site not specified; Obesity, unspecified; Essential (primary) hypertension. Condition is Stable. Discharge Instructions: Bronchiolitis, Pediatric, Fever, Adult, Obesity, Adult, Tonsillitis, Urinary Tract Infection, Adult, Tonsillitis, Xqph-mq-Iqxb, Urinary Tract Infection, Adult, Rnzz-bu-Gcpj, Cough, Adult, Tuyl-vy-Jxlb, Cough, Adult, Hypertension, Hypertension, Ghos-ow-Hlyf, How to Take Your Blood Pressure, Hqig-qp-Azri, Managing Your Hypertension. Prescriptions for Augmentin 875-125 mg Oral Tablet - take 1 tablet by ORAL route every 12 hours for 10 days; 20 tablet. and Forms are Medication Reconciliation Form, Thank You Letter, Antibiotic Education, Prescription Opioid Use. Follow up: Private Physician; When: 2 - 3 days; Reason: Recheck today's complaints, Continuance of care, Re-evaluation by your physician. Problem is new. Symptoms have improved. freddy
--- NOTE | 2020-01-24 23:47 | ER ---
Nurse's Notes [facility] Name: Mat Lerma Age: 40 yrs Sex: Male : 1980 Arrival Date: 01/24/2020 Time: 21:34 Bed 17 Private MD: Diagnosis: Acute tonsillitis;Fever, unspecified;Cough;Urinary tract infection, site not specified;Obesity, unspecified;Essential (primary) hypertension Presentation: 01/23 21:44 Chief complaint: Patient states: "My throat feels like its on fire, it hurts to aj1 swallow, the back of my head hurts, I have shortness of breath and a cough and congestion, and this is the third or fourth day that I've felt this way" TMax 101.2. Coronavirus screen: The patient has NOT traveled to a country currently being monitored by the [facility] within the last 14 days. Ebola Screen: Patient denies travel to an Ebola-affected area in the 21 days before illness onset. Initial Sepsis Screen: Does the patient meet any 2 criteria? No. Patient's initial sepsis screen is negative. Does the patient have a suspected source of infection? Yes: Productive cough/pneumonia. Risk Assessment: Do you want to hurt yourself or someone else? Patient reports no desire to harm self or others. 21:44 Method Of Arrival: Ambulatory aj1 21:44 Acuity: DIAMOND 4 aj1 22:00 Onset of symptoms is unknown. Triage Assessment: 21:46 General: Appears in no apparent distress. comfortable, Behavior is calm, cooperative, aj1 appropriate for age. Pain: Pain currently is 6 out of 10 on a pain scale. EENT: Reports nasal congestion nasal discharge sore throat, painful swallowing. Neuro: Level of Consciousness is awake, alert, obeys commands, Oriented to person, place, time, situation. Cardiovascular: Patient's skin is warm and dry. Respiratory: Airway is patent Respiratory effort is even, unlabored, Respiratory pattern is regular, symmetrical. Historical: - Allergies: 21:46 No Known Allergies; aj1 - Home Meds: 21:46 lisinopril-hydrochlorothiazide 20-12.5 mg Oral tab 1 tab twice a day [Active]; aj1 lovastatin 20 mg Oral tab 1 tab once daily [Active]; - PMHx: 21:46 Hyperlipidemia; Hypertension; aj1 - Immunization history:: Flu vaccine is not up to date. - Social history:: Smoking status: Patient/guardian denies using tobacco. - Family history:: not pertinent. Screenin:00 Abuse screen: Denies threats or abuse. Denies injuries from another. Nutritional wh screening: No deficits noted. Tuberculosis screening: No symptoms or risk factors identified. Fall Risk None identified. Assessment: 22:00 General: Appears in no apparent distress. Behavior is calm, cooperative, appropriate wh for age. Pain: Complains of pain in sore throat. Neuro: Level of Consciousness is awake, alert, obeys commands, Oriented to person, place, time, situation, Appropriate for age. Cardiovascular: Heart tones S1 S2. Respiratory: Reports cough that is Airway is patent Respiratory effort is even, unlabored, Respiratory pattern is regular, symmetrical, Breath sounds are clear Breath sounds are diminished bilaterally. GI: Abdomen is round non-distended. : No signs and/or symptoms were reported regarding the genitourinary system. EENT: Throat is reddened. Derm: Skin is intact, is healthy with good turgor, Skin is pink, warm \\T\\ dry. normal. Musculoskeletal: Circulation, motion, and sensation intact. 23:30 Reassessment: Patient appears in no apparent distress at this time. No changes from previously documented assessment. Patient and/or family updated on plan of care and expected duration. Pain level reassessed. Patient is alert, oriented x 3, equal unlabored respirations, skin warm/dry/pink. Vital Signs: 21:46 BP 198 / 108; Pulse 88; Resp 18; Temp 98.1; Pulse Ox 99% on R/A; Weight 199.58 kg (R); aj1 Height 5 ft. 9 in. (175.26 cm) (R); Pain 6/10; 23:00 BP 174 / 98; Pulse 86; Resp 18; Pulse Ox 99% ; wh 01/24 00:00 BP 168 / 102; Pulse 91; Resp 18; Pulse Ox 98% on R/A; wh 01/23 21:46 Body Mass Index 64.98 (199.58 kg, 175.26 cm) aj1 ED Course: 01/23 21:34 Patient arrived in ED. jg7 21:46 Triage completed. aj1 21:46 Arm band placed on Patient placed in an exam room. aj1 21:53 Dez Beltran MD is Attending Physician. [facility] 22:00 Patient has correct armband on for positive identification. Bed in low position. Call light in reach. Side rails up X 1. Pulse ox on. NIBP on. 22:16 Holly Eaton is Primary Nurse. 22:30 Inserted saline lock: 20 gauge in right antecubital area, using aseptic technique. Blood collected. 22:45 Chest Pa And Lat (2 Views) XRAY In Process Unspecified. EDRI 01/24 00:16 No provider procedures requiring assistance completed. IV discontinued, intact, bleeding controlled, No redness/swelling at site. Administered Medications: 01/23 23:00 Drug: NS 0.9% 1000 ml Route: IV; Rate: 1 bolus; Site: right antecubital; 01/24 00:13 Follow up: Response: No adverse reaction; IV Status: Completed infusion 01/23 23:00 Drug: Rocephin 2 grams Route: IV; Rate: per protocol; Site: right antecubital; 01/24 00:13 Follow up: Response: No adverse reaction; IV Status: Completed infusion 01/23 23:40 Drug: Augmentin 875 mg Route: PO; 01/24 00:13 Follow up: Response: No adverse reaction 01/23 23:40 Drug: Motrin 800 mg Route: PO; 01/24 00:12 Follow up: Response: No adverse reaction; Pain is decreased Outcome: 01/23 23:43 Discharge ordered by . [facility] 01/24 00:16 Discharged to home ambulatory, with family. Condition: stable Discharge instructions given to patient, family, Instructed on discharge instructions, follow up and referral plans. medication usage, POC Demonstrated understanding of instructions, follow-up care, medications, POC Prescriptions given X 1. 00:19 Patient left the ED. Signatures: Dispatcher [employer] EDRI Brook Song, RN RN aj1 Dez Beltran MD MD cha Habalo, Winsy Karla Valencia jg7
[2020-01-25 00:34] VITALS: TEMP 98.1
[2020-01-25 00:37] VITALS: BP 168/102; O2SAT 98
[2020-01-25 01:11] LABS: Urine Blood NEGATIVE (NEG); Urine Glucose NEGATIVE (NEG); Urine Protein NEGATIVE (NEG); Urine Specific Gravity >1.030 (1.005-1.030); Urine pH 6.5 (5.0-7.0)
--- NOTE | 2020-01-25 08:25 | RAD REPORT ---
EXAM DESCRIPTION: Ana Luisa Pompa (2 Views)01/24/2020 10:47 pm CLINICAL HISTORY: Cough COMPARISON: 2019 FINDINGS: The lungs appear clear of acute infiltrate. The heart is mildly enlarged IMPRESSION: No acute abnormalities displayed
== END 2020-01-25 00:19 | disposition home or self-care (01) ==
LOC: ER 21:31
DX: J03.90 Acute tonsillitis, unspecified (principal); N39.0 Urinary tract infection, site not specified; R05 Cough; I10 Essential (primary) hypertension; E66.9 Obesity, unspecified; E78.5 Hyperlipidemia, unspecified
CPT/HCPCS: 36415; 71046; 80053; 81003; 85025; 87070; 87081; 87804; 96365; 99284; J0696; J7030

== ENCOUNTER 2020-02-26 19:08 | Emergency (ER) | payer SELFPAY ==
--- OUTSIDE RECORDS SUMMARY | 2020-02-26 19:11 | XMS REPORT ---
:1980 Author Organization [facility] t Address [address] [place] [address] Care Team Providers Name Role Phone Unavailable Unavailable Unavailable Payers Payer Name Policy Type Policy Number Effective Date Expiration D ate Problems This patient has no known problems. Allergies, Adverse Reactions, Alerts Allergy Allergy Status Severity Reaction(s) Onset Inactive Treating C omments Name Type Date Date Clinician No Known DA Active U 2019-07 Allergies 00:00:0 0 Medications This patient has no known medications. Results Test Description Test Time Test Comments Text Results Atomic Results Result Comments TROPONIN-I 2019-07-24 21:32:00 Test Item Value Reference Range Comments TROPONIN-I (test code = < 0.015 NG/ML 0.000-0.045 Negative : </= 0.045 Positive: TROPI) >/= 0.046 Correl ation with serial results, other cardiac markers, and cli nical findings is necessary to determine the clinical signif icance of this result. Quantita tive results using different methodologies should not be co mpared to one another as numer ical results may varyby graciela pack Completed by Nursing: NOCOMPREHENSIVE METABOLIC [id number] 19:14:00 Test Item Value Reference Range Comments SODIUM (test code = NA) 139 mmol/L 134-147 POTASSIUM (test code = K) 3.5 mmol/L 3.4-5.0 CHLORIDE (test code = CL) 104 mmol/L 100-108 CARBON DIOXIDE (test code = CO2) 29 mmol/L 21-32 ANION GAP (test code = GAP) 6.0 GAP calc 4.0-15.0 GLUCOSE (test code = GLU) 96 MG/DL 70-110 BLOOD UREA NITROGEN (test code = 13 MG/DL 7-18 BUN) GLOMERULAR FILTRATION RATE (test >=60 max estimate estGFR >60 code = GFR) CREATININE (test code = CREAT) 0.9 MG/DL 0.8-1.3 TOTAL PROTEIN (test code = PROT) 7.5 G/DL 6.4-8.2 ALBUMIN (test code = ALB) 3.3 G/DL 3.4-5.0 GLOBULIN (test code = GLOB) 4.2 GM/dL ALBUMIN/GLOBULIN RATIO (test code = 0.8 RATIO 1.2-2.2 A/G) CALCIUM (test code = CA) 8.2 MG/DL 8.5-10.1 BILIRUBIN TOTAL (test code = BILT) 0.50 MG/DL 0.2-1.2 SGOT/AST (test code = AST) 16 Unit/L 15-37 SGPT/ALT (test code = ALT) 12 Unit/L 12-78 ALKALINE PHOSPHATASE TOTAL (test 56 Unit/L 50-136 code = ALKP) RULE OUT [place] [id number] 19:14:00 Test Item Value Reference Range Comments CREATINE KINASE (CK) 166 Unit/L 26-192 (test code = CK) TROPONIN-I (test code = < 0.015 NG/ML 0.000-0.045 Negative : </= 0.045 Positive: TROPI) >/= 0.046 Correl ation with serial results, other cardiac markers, and cli nical findings is necessary to determine the clinical signif icance of this result. Quantita tive results using different methodologies should not be co mpared to one another as numer ical results may varyby metho d. - XR CHEST 2 [id number] 18:50:00 Name: ZARIA COOK [facility] ED : 1980 Age/S: 39 / M [id number] Unit #: [id number] Loc: [place] [address] Phys: Rodrigo Alvarado MD Acct: [id number] Dis Date: Status: REG ER PHONE #: [phone] Exam Date: 07/24/2019 1824 FAX #: Reason: chest pain EXAMS: CPT: [id number] XR CHEST 2 V 45648 Fluoro Time: DAP (Gy m2): Air Kerma (mGy): LOCATION: Q15 HISTORY: 39-year-old male with chest discomfort. COMMENT: Frontal and lateral chest radiographs were examined. The lungs are clear. The cardiac silhouette, adrian, and mediastinumare unremarkable. The skeleton and soft tissues are unremarkable. monitor worker leads are present. IMPRESSION: Unremarkable radiographic examination of the chest. at 1850 Reported and signed by: Dax Mazariegos M.D. CC: Rodrigo Alvarado MD; Ning Milton NP PAGE 1 Signed Report [facility] 1980 Age/S: 39 / M [address] [id number] Loc: [place] [address] Phys: Rodrigo Alvarado MD Acct: [id number] Dis Date: Status:REG ER PHONE #: [phone] Exam Date: 07/24/2019 182 FAX #: Reason: chest pain EXAMS: CPT: [id number] XR CHEST 2 V 88540 Fluoro Time: DAP (Gy m2): Air Kerma (mGy): <Continued> Technologist: HAYLEE CHRISTIANSON, RT(R)(CT)(MR); ... Trnscb Date/Time: 07/24/2019 (1849) [email or web address] Orig Print D/T: S: 07/24/2019 (1852) PAGE 2 Signed ReportCBC W/O [id number] 18:49:00 Test Item Value Reference Range Comments WHITE BLOOD CELL (test code = WBC) 9.0 K/mm3 3.5-11.0 RED BLOOD CELL (test code = RBC) 4.95 M/mm3 4.70-6.10 HEMOGLOBIN (test code = HGB) 13.4 G/DL 12.3-15.9 HEMATOCRIT (test code = HCT) 41.4 % 35.8-46.7 MEAN CELL VOLUME (test code = MCV) 83.6 Fl 86.3-98.9 MEAN CELL HGB (test code = MCH) 27.1 pg 28.9-34.4 MEAN CELL HGB CONCETRATION (test code = MCHC) 32.4 G/DL 32 .1-34.5 RED CELL DISTRIBUTION WIDTH (test code = RDW) 15.4 SD 11 .5-14.5 PLATELET COUNT (test code = PLT) 260.0 K/mm3 150-450 MEAN PLATELET VOLUME (test code = MPV) 10.30 fL 7.0-9.6 TROPONIN I [id number] 18:48:00 Test Item Value Reference Range Comments TROPONIN I RAPID (test code 0.00 ng/mL 0.00-0.08 - Th e use of serial sampling = TROPIRAP) and testing prot ocol is a recommended prac deb- An elevated troponi n level alone is often not suf ficient for diagnosis of tigre cardial infarction.
[2020-02-26] MEDS ORDERED: MEPERIDINE HCL 25 MG/0.5 ML ONE (19:54)
[2020-02-26 19:56] LABS: Urine Bacteria <20 /HPF (NONE SEEN); Urine Culture Reflex Order NOT NEEDED; Urine Mucus 1+ /HPF (NONE SEEN); Urine RBC >50 /HPF (NONE SEEN)
[2020-02-26 19:56] LABS: Urine Blood 3+ (NEG); Urine Glucose NEGATIVE (NEG); Urine Protein 3+ (NEG); Urine Specific Gravity >1.030 (1.005-1.030); Urine pH 5.5 (5.0-7.0)
--- NOTE | 2020-02-26 19:57 | RAD REPORT ---
EXAM DESCRIPTION: CT - Stone Protocol - 02/26/2020 7:41 pm CLINICAL HISTORY: right flank pain, hematuria, hx of stones COMPARISON: CTSTONE PROTOCOL dated 08/15/2012 TECHNIQUE: Axial 5 mm thick images were obtained without oral or IV contrast. The ksnue-mg-hmec span s the entirety of the system including uppermost abdomen and lung bases. All CT scans are performed using dose optimization technique as appropriate and may include automated exposure control or mA/KV adjustment according to patient size. FINDINGS: No hydronephrosis is present and no obstructing ureteral calculi. No suspicious renal mass es. Isodense masses and pyelonephritis are not excluded on a stone protocol CT scan. No significant a drenal finding. No urinary bladder suspicious finding. Phleboliths are present along the pelvic floor . Imaged portions of the liver, spleen and pancreas show no suspicious findings on non-contrast imaging . No gallbladder or biliary tree abnormality identified. No suspicious bowel findings. No hernia, mass or bulky lymphadenopathy noted. No free air, free fluid or inflammatory stranding. No significant bony abnormality. IMPRESSION: No hydronephrosis, obstructing calculus or acute finding identifiable. Isodense masses and pyelonephritis are not excluded on stone protocol technique. No acute finding identifiable. Exam has significant detail limitation due to the very large body habi tus.
[2020-02-26 20:17] LABS: Absolute Lymphocytes (CBC) 1.7 K/uL (0.7-4.9); Basophils % 0.6 % (0-1.3); Hematocrit 40.2 % (39.6-49.0); Lymphocytes % 13.6 % (15.3-44.8); MPV 8.2 fL (7.6-11.3); RBC Red Blood Cell Count 4.96 M/uL (4.33-5.43)
[2020-02-26 20:28] LABS: BUN Blood Urea Nitrogen 12 mg/dL (7-18); Bicarbonate 28 mmol/L (21-32); Glucose Level 113 mg/dL (74-106); Potassium 3.2 mmol/L (3.5-5.1); Sodium Level 142 mmol/L (136-145)
--- NOTE | 2020-02-26 20:43 | EDPHYS ---
Physician Documentation [facility] Name: Mat Lerma Age: 40 yrs Sex: Male : 1980 Arrival Date: 02/26/2020 Time: 19:10 Bed 18 Private MD: ED Physician Lyndon Mccallum HPI: 02/25 19:38 This 40 yrs old Black Male presents to ER via Ambulatory with complaints of Blood In rn Urine. 19:38 The patient presents with flank pain, described as achy, of the right low back, urinary rn symptoms, dysuria, urinary frequency. Onset: The symptoms/episode began/occurred 3 day(s) ago. Modifying factors: The symptoms are alleviated by nothing, the symptoms are aggravated by nothing. Severity of symptoms: At their worst the symptoms were mild, in the emergency department the symptoms are unchanged. The patient has experienced a previous episode. REports 3 days of right flank/low back pain, non-radiating, no injury, today noticed small amount of blood in urine, has had kidney stone before that did not require intervention, and feels similar. Reports dysuria and urinary frequency.. Historical: - Allergies: 19:34 No Known Allergies; bb - Home Meds: 19:34 lisinopril-hydrochlorothiazide 20-12.5 mg Oral tab 1 tab twice a day [Active]; bb lovastatin 20 mg Oral tab 1 tab once daily [Active]; - PMHx: 19:34 Hyperlipidemia; Hypertension; bb - PSHx: 19:34 None; bb - Immunization history:: Adult Immunizations up to date. - Social history:: Smoking status: Patient reports the use of cigarette tobacco products, cigars, Patient uses alcohol, occasionally. Patient/guardian denies using street drugs. - Family history:: not pertinent. - Hospitalizations: : No recent hospitalization is reported. ROS: 19:38 Constitutional: Negative for fever, chills, and weight loss, Eyes: Negative for injury, rn pain, redness, and discharge, Neck: Negative for injury, pain, and swelling, Cardiovascular: Negative for chest pain, palpitations, and edema, Respiratory: Negative for shortness of breath, cough, wheezing, and pleuritic chest pain, Abdomen/GI: Negative for abdominal pain, nausea, vomiting, diarrhea, and constipation, Back: + right lower back pain : + hematuria MS/Extremity: Negative for injury and deformity, Skin: Negative for injury, rash, and discoloration, Neuro: Negative for headache, weakness, numbness, tingling, and seizure. Exam: 19:38 Constitutional: Overweight male, no acute distress Eyes: Normal conjunctivae rn field: Regular rate and rhythm. No pulse deficits. Respiratory: No increased work of breathing, no retractions or nasal flaring. Abdomen/GI: soft, non-tender Back: No spinal tenderness. No costovertebral tenderness. Full range of motion. Skin: Warm, dry with normal turgor. Normal color with no rashes, no lesions, and no evidence of cellulitis. MS/ Extremity: Pulses equal, no cyanosis. Neurovascular intact. Full, normal range of motion. Equal circumference. Neuro: Awake and alert, GCS 15, oriented to person, place, time, and situation. Cranial nerves II-XII grossly intact. Motor strength 5/5 in all extremities. Sensory grossly intact. Cerebellar exam normal. Normal gait. Vital Signs: 19:32 BP 187 / 107; Pulse 84; Resp 20 S; Temp 98.4(O); Pulse Ox 97% on R/A; Weight 195.04 kg bb (R); Height 5 ft. 9 in. (175.26 cm) (R); Pain 9/10; 20:50 BP 158 / 95; Pulse 85; Resp 19 S; Pulse Ox 98% on R/A; jd3 19:32 Body Mass Index 63.50 (195.04 kg, 175.26 cm) bb MDM: 19:23 Patient medically screened. rn 20:41 Differential diagnosis: UTI, prostatitis, urethritis, kidney stone, kidney mass, rn cancer, cyst. Data reviewed: vital signs, nurses notes, lab test result(s), radiologic studies, CT scan, and as a result, I will discharge patient. Counseling: I had a detailed discussion with the patient and/or guardian regarding: the historical points, exam findings, and any diagnostic results supporting the discharge/admit diagnosis, lab results, radiology results, the need for outpatient follow up, to return to the emergency department if symptoms worsen or persist or if there are any questions or concerns that arise at home. Special discussion: I discussed with the patient/guardian in detail that at this point there is no indication for admission to the hospital. It is understood, however, that if the symptoms persist or worsen the patient needs to return immediately for re-evaluation. Based on the history and exam findings, there is no indication for further emergent testing or inpatient evaluation. I discussed with the patient/guardian the need to see the urologist for further evaluation of the symptoms. ED course: Reports feels better, able to urinate better and clearing up, no blood clots. Neg ct stone, most likely recently passed stone given identical symptoms and dysuria with improvement. Will dc home with abx and f/u. . 02/25 19:30 Order name: Basic Metabolic Panel; Complete Time: 20:40 rn 02/25 19:30 Order name: CBC with Diff; Complete Time: 20:40 rn 02/25 19:30 Order name: Urine Culture rn 02/25 19:30 Order name: Urine Microscopic Only; Complete Time: 20:00 rn 02/25 19:30 Order name: CT Stone Protocol; Complete Time: 20:00 rn 02/25 19:43 Order name: Urine Dipstick--Ancillary (enter results); Complete Time: 20:00 ar5 02/25 19:30 Order name: IV Saline Lock; Complete Time: 20:03 rn 02/25 19:30 Order name: Labs collected and sent; Complete Time: 20:03 rn 02/25 19:30 Order name: Urine Dipstick-Ancillary (obtain specimen); Complete Time: 19:41 rn Administered Medications: 20:03 Drug: Demerol 25 mg Route: IVP; Site: left wrist; jd3 20:53 Follow up: Response: No adverse reaction; RASS: Alert and Calm (0) jd3 Disposition: 02/26/20 20:42 Discharged to Home. Impression: Hematuria, unspecified. - Condition is Stable. - Discharge Instructions: Hematuria, Adult. - Prescriptions for Cipro 500 mg Oral Tablet - take 1 tablet by ORAL route every 12 hours for 10 days; 20 tablet. - Medication Reconciliation Form, Thank You Letter, Antibiotic Education, Prescription Opioid Use, Work release form form. - Follow up: Andie Martinez MD; When: As needed; Reason: Recheck today's complaints, Re-evaluation by your physician. - Problem is new. - Symptoms have improved. Signatures: Dispatcher [employer] EDNinoska Moses RN RN bb Nieto, Roman, MD MD rn Davies, Lisandro, RN RN jd3 Corrections: (The following items were deleted from the chart) 20:54 20:42 02/26/2020 20:42 Discharged to Home. Impression: Hematuria, unspecified. jd3 Condition is Stable. Forms are Medication Reconciliation Form, Thank You Letter, Antibiotic Education, Prescription Opioid Use. Follow up: Andie Martinez; When: As needed; Reason: Recheck today's complaints, Re-evaluation by your physician. Problem is new. Symptoms have improved. rn
--- NOTE | 2020-02-26 20:43 | ER ---
Nurse's Notes [facility] Name: Mat Lerma Age: 40 yrs Sex: Male : 1980 Arrival Date: 02/26/2020 Time: 19:10 Bed 18 [facility] MD: Diagnosis: Hematuria, unspecified Presentation: 02/25 19:32 Chief complaint: Patient states: he has been having right flank pain x 2 days and is bb having frequency with blood in his urine today has had kidney stones in the past. Coronavirus screen: Proceed with normal triage. Ebola Screen: No symptoms or risks identified at this time. Initial Sepsis Screen: Does the patient meet any 2 criteria? No. Patient's initial sepsis screen is negative. Does the patient have a suspected source of infection? No. Patient's initial sepsis screen is negative. Risk Assessment: Do you want to hurt yourself or someone else? Patient reports no desire to harm self or others. Onset of symptoms was February 24, 2020. 19:32 Method Of Arrival: Ambulatory bb 19:32 Acuity: DIAMOND 3 bb Historical: - Allergies: 19:34 No Known Allergies; bb - Home Meds: 19:34 lisinopril-hydrochlorothiazide 20-12.5 mg Oral tab 1 tab twice a day [Active]; bb lovastatin 20 mg Oral tab 1 tab once daily [Active]; - PMHx: 19:34 Hyperlipidemia; Hypertension; bb - PSHx: 19:34 None; bb - Immunization history:: Adult Immunizations up to date. - Social history:: Smoking status: Patient reports the use of cigarette tobacco products, cigars, Patient uses alcohol, occasionally. Patient/guardian denies using street drugs. - Family history:: not pertinent. - Hospitalizations: : No recent hospitalization is reported. Screenin:44 Abuse screen: Denies threats or abuse. Nutritional screening: No deficits noted. jd3 Tuberculosis screening: No symptoms or risk factors identified. Fall Risk Ambulatory Aid- None/Bed Rest/Nurse Assist (0 pts). Gait- Normal/Bed Rest/Wheelchair (0 pts) Mental Status- Oriented to own ability (0 pts). Total Sorto Fall Scale indicates No Risk (0-24 pts). Assessment: 19:42 General: Appears in no apparent distress. uncomfortable, Behavior is calm, cooperative, jd3 appropriate for age. Pain: Complains of pain in right low back Quality of pain is described as throbbing, Is intermittent. Neuro: Level of Consciousness is awake, alert, obeys commands, Oriented to person, place, time, situation. Cardiovascular: Denies chest pain, Capillary refill < 3 seconds Patient's skin is warm and dry. Respiratory: Airway is patent Respiratory effort is even, unlabored, Respiratory pattern is regular, symmetrical, Denies cough, shortness of breath. GI: No signs and/or symptoms were reported involving the gastrointestinal system. : Urine is blood tinged, Reports urinary frequency, blood in urine. EENT: No signs and/or symptoms were reported regarding the EENT system. Derm: Skin is intact, Skin is dry, Skin is normal, Skin temperature is warm. Musculoskeletal: Circulation, motion, and sensation intact. Range of motion: intact in all extremities. 20:51 Reassessment: Patient appears in no apparent distress at this time. Patient and/or jd3 family updated on plan of care and expected duration. Pain level reassessed. Patient is alert, oriented x 3, equal unlabored respirations, skin warm/dry/pink. pt reported understanding of discharge instructions. even and steady gait upon discharge. Patient states feeling better. Vital Signs: 19:32 BP 187 / 107; Pulse 84; Resp 20 S; Temp 98.4(O); Pulse Ox 97% on R/A; Weight 195.04 kg bb (R); Height 5 ft. 9 in. (175.26 cm) (R); Pain 9/10; 20:50 BP 158 / 95; Pulse 85; Resp 19 S; Pulse Ox 98% on R/A; jd3 19:32 Body Mass Index 63.50 (195.04 kg, 175.26 cm) bb ED Course: 19:10 Patient arrived in ED. ag3 19:23 Lyndon Mccallum MD is Attending Physician. rn 19:31 Lisandro Diallo RN is Primary Nurse. jd3 19:34 Triage completed. bb 19:34 Arm band placed on Patient placed in an exam room, on a stretcher, on pulse oximetry. bb 19:41 CT Stone Protocol In Process Unspecified. EDMS 19:44 Patient has correct armband on for positive identification. Bed in low position. Call jd3 light in reach. Side rails up X 1. Pulse ox on. NIBP on. 20:04 Inserted saline lock: 20 gauge in left wrist, using aseptic technique. Blood collected. jd3 20:42 Andie Martinez MD is Referral Physician. rn 20:50 No provider procedures requiring assistance completed. IV discontinued, intact, jd3 bleeding controlled, No redness/swelling at site. Pressure dressing applied. Administered Medications: 20:03 Drug: Demerol 25 mg Route: IVP; Site: left wrist; jd3 20:53 Follow up: Response: No adverse reaction; RASS: Alert and Calm (0) jd3 Outcome: 20:42 Discharge ordered by MD. rn 20:52 Discharged to home ambulatory, with family. jd3 20:52 Condition: stable 20:52 Discharge instructions given to patient, Instructed on discharge instructions, follow up and referral plans. medication usage, Demonstrated understanding of instructions, follow-up care, medications, Prescriptions given X 1. 20:54 Patient left the ED. jd3 Signatures: Dispatcher [employer] EDMS Ninoska Goss RN RN bb Nieto, Roman, MD MD rn Davies, Jonathon, RN RN jd3 Gomez, Alice ag3 Corrections: (The following items were deleted from the chart) 20:16 19:42 Pain: Complains of pain in right low back Quality of pain is described as sharp, jpaulino jd3
[2020-02-26 21:00] VITALS: TEMP 98.4
[2020-02-26 21:01] VITALS: BP 158/95; O2SAT 98
== END 2020-02-26 20:54 | disposition home or self-care (01) ==
LOC: ER 19:08
DX: R31.9 Hematuria, unspecified (principal); I10 Essential (primary) hypertension; F17.290 Nicotine dependence, other tobacco product, uncomplicated
CPT/HCPCS: 36415; 74176; 76377; 80048; 81003; 81015; 85025; 87086; 87088; 96374; 99284; J2175

== ENCOUNTER 2020-07-02 09:25 | Inpatient (IN) | payer SELFPAY ==
--- OUTSIDE RECORDS SUMMARY | 2020-07-02 09:27 | XMS REPORT | Continuity of Care Document ---
:1980 Author Organization [facility] t Address [address] [place] [address] Care Team Providers Name Role Phone Nickie Khan Attending Clinician Tristian Bacon MD Attending Clinician Doctor Unassigned, Name Attending Clinician Unavailable Payers Payer Name Policy Type Policy Number Effective Date Expiration Date S ource Problems This patient has no known problems. Allergies, Adverse Reactions, Alerts Allergy Allergy Status Severity Reaction(s) Onset Inactive Treating Comm ents Source Name Type Date Date Clinician No Known DA Active U JESSE Allergie 07-24 [facility] s 00:00: d 00 [facility] Medications This patient has no known medications. Procedures This patient has no known procedures. Encounters Start End Encounter Admission Attending Care Care Encounter Source Date/Time Date/Time Type Type Clinicians Facility Department ID 2020-01-22 2020-01-22 Emergency Reagan Lindsey [facility] [id number] 18:44:00 20:45:00 Nickie Tabares [id number] [place] [id number] [place] [id number] 2019-12-12 2019-12-12 Emergency RAMAN Bacon [id number] 14:19:22 15:39:00 Dax Tabares [id number] [place] [id number] [place] [id number] 2019-12-12 2019-12-12 Orders Doctor RODRIGUEZ [id number] 00:00:00 00:00:00 Only Unassigned, JEISON [id number] [place] [facility] [id number] Results Test Description Test Time Test Comments Results Result Comments Source TROPONIN-I 2019-07-24 21:32:00 Test Item Value Reference Range Interpretation Comme nts TROPONIN-I (test code = < 0.015 NG/ML 0.000-0.045 N Neg ative: </= 0.045 Positive: TROPI) >/= 0.046 Corre lation with serial results, other cardiac markers, and cl inical findings is necessary to determine the clinical signi ficance of this result. Quantit ative results using different methodologies should not be c ompared to one another as nume rical results may varyby meth od. Completed by Nursing: NOCOMPREHENSIVE METABOLIC [id number] 19:14:00 Test Item Value Reference Range Interpretation Comments SODIUM (test code = NA) 139 mmol/L 134-147 N POTASSIUM (test code = 3.5 mmol/L 3.4-5.0 N K) CHLORIDE (test code = 104 mmol/L 100-108 N CL) CARBON DIOXIDE (test 29 mmol/L 21-32 N code = CO2) ANION GAP (test code = 6.0 GAP calc 4.0-15.0 N GAP) GLUCOSE (test code = 96 MG/DL 70-110 N GLU) BLOOD UREA NITROGEN 13 MG/DL 7-18 N (test code = BUN) GLOMERULAR FILTRATION >=60 max estimate >60 RATE (test code = GFR) estGFR CREATININE (test code = 0.9 MG/DL 0.8-1.3 N CREAT) TOTAL PROTEIN (test code 7.5 G/DL 6.4-8.2 N = PROT) ALBUMIN (test code = 3.3 G/DL 3.4-5.0 L ALB) GLOBULIN (test code = 4.2 GM/dL GLOB) ALBUMIN/GLOBULIN RATIO 0.8 RATIO 1.2-2.2 L (test code = A/G) CALCIUM (test code = CA) 8.2 MG/DL 8.5-10.1 L BILIRUBIN TOTAL (test 0.50 MG/DL 0.2-1.2 N code = BILT) SGOT/AST (test code = 16 Unit/L 15-37 N AST) SGPT/ALT (test code = 12 Unit/L 12-78 N ALT) ALKALINE PHOSPHATASE 56 Unit/L 50-136 N TOTAL (test code = ALKP) RULE OUT GA [id number] 19:14:00 Test Item Value Reference Range Interpretation Comments CREATINE KINASE 166 Unit/L 26-192 N (CK) (test code = CK) TROPONIN-I (test < 0.015 NG/ML 0.000-0.045 N Negative: </= 0.045 code = TROPI) Positive: >/= 0.046 Correlation wit h serial results, other cardiac markers , and clinical findin gs is necessary to de termine the clinical significance of this result. Quantit ative results using different methodologies s hould not be compared to one another as nume rical results may nadiya yby method. - XR CHEST 2 [id number] 18:50:00 Name: ZARIA COOK [facility] : 1980 Age/S: 39 / M [id number] Unit #: [id number] Loc: [place] [address] Phys: Rodrigo Alvarado MD Acct: [id number] Dis Date: Status: REG ER PHONE #: [phone] Exam Date: 07/24/2019 1821 FAX #: Reason: chest pain EXAMS: CPT: [id number] XR CHEST 2 V 84073 Fluoro Time: DAP (Gy m2): Air Kerma (mGy): LOCATION: Q15 HISTORY: 39-year-old male with chest discomfort. COMMENT: Frontal and lateral chest radiographs were examined. The lungs are clear. The cardiac silhouette, adrian, and mediastinumare unremarkable. The skeleton and soft tissues are unremarkable. cardiovascular operating room nurse leads are present. IMPRESSION: Unremarkable radiographic examination of the chest. at 1850 Reported and signed by: Dax Mazariegos M.D. CC: Rodrigo Alvarado MD; Ning Milton NP PAGE 1 Signed Report [facility] 1980 Age/S: 39 / M [address]: [id number] Loc: [place] [address] Phys: Rodrigo Alvarado MD Acct: [id number] Dis Date: Status:REG ER PHONE #: [phone] Exam Date: 07/24/2019 182 FAX #: Reason: chest pain EXAMS: CPT: [id number] XR CHEST 2 V 79230 Fluoro Time: DAP (Gy m2): Air Kerma (mGy): <Continued> Technologist: HAYLEE CHRISTIANSON, RT(R)(CT)(MR); ... Trnscb Date/Time: 07/24/2019 (1849) [email or web address] Orig Print D/T: S: 07/24/2019 (1852) PAGE 2 Signed ReportCBC W/O [id number] 18:49:00 Test Item Value Reference Range Interpretation Comments WHITE BLOOD CELL (test code = 9.0 K/mm3 3.5-11.0 N WBC) RED BLOOD CELL (test code = RBC) 4.95 M/mm3 4.70-6.10 N HEMOGLOBIN (test code = HGB) 13.4 G/DL 12.3-15.9 N HEMATOCRIT (test code = HCT) 41.4 % 35.8-46.7 N MEAN CELL VOLUME (test code = 83.6 Fl 86.3-98.9 L MCV) MEAN CELL HGB (test code = MCH) 27.1 pg 28.9-34.4 L MEAN CELL HGB CONCETRATION (test 32.4 G/DL 32.1-34.5 N code = MCHC) RED CELL DISTRIBUTION WIDTH (test 15.4 SD 11.5-14.5 H code = RDW) PLATELET COUNT (test code = PLT) 260.0 K/mm3 150-450 N MEAN PLATELET VOLUME (test code = 10.30 fL 7.0-9.6 H MPV) TROPONIN I [id number] 18:48:00 Test Item Value Reference Range Interpretation Comments TROPONIN I RAPID 0.00 ng/mL 0.00-0.08 N - The use o f serial (test code = sampling and te sting TROPIRAP) protocol is a recommended pra ctice- An elevated tro ponin level alone is often not sufficient for diagnosis of my ocardial infarction.
[2020-07-02] MEDS ORDERED: METOPROLOL TARTRATE 5 MG/5 ML INJ IV ONE ×2 (09:58→17:11)
[2020-07-02] MEDS ORDERED: METOPROLOL TAR 50 MG TAB ONE (09:58)
[2020-07-02 10:12] LABS: Absolute Lymphocytes (CBC) 1.6 K/uL (0.7-4.9); Basophils % 0.8 % (0-1.3); Hematocrit 47.7 % (39.6-49.0); Lymphocytes % 19.9 % (15.3-44.8); MPV 8.3 fL (7.6-11.3); RBC Red Blood Cell Count 5.74 M/uL (4.33-5.43)
[2020-07-02 10:13] LABS: Protime INR 0.97
[2020-07-02 10:30] LABS: BUN Blood Urea Nitrogen 15 mg/dL (7-18); Bicarbonate 32 mmol/L (21-32); Ferritin 214.1 ng/mL (26-388); Glucose Level 123 mg/dL (74-106); Magnesium 2.2 mg/dL (1.8-2.4); NT PRO-BNP 86 pg/mL (<125); Sodium Level 140 mmol/L (136-145); Troponin (Emerg Dept Use Only) < 0.02 ng/mL (0.0-0.045)
--- NOTE | 2020-07-02 10:42 | RAD REPORT ---
EXAM DESCRIPTION: RAD - Chest Single View - 07/02/2020 10:10 am CLINICAL HISTORY: PALPITATIONS Chest pain. COMPARISON: Chest Pa And Lat (2 Views) dated 01/24/2020; Chest Single View dated 07/24/2019; Chest Sing le View dated 12/14/2018; Stone Protocol dated 02/26/2020 FINDINGS: Portable technique limits examination quality. Mild bilateral interstitial lung opacities are present compatible with mild interstitial pneumonia. T he heart is mildly enlarged in size. No displaced fractures.
--- NOTE | 2020-07-02 11:31 | EDPHYS ---
Physician Documentation [facility] Name: Mat Lerma Age: 40 yrs Sex: Male : 1980 Arrival Date: 07/02/2020 Time: 09:[address] Private MD: ED Physician Lyndon Mccallum HPI: 07/02 09:48 This 40 yrs old Black Male presents to ER via Unassigned with complaints of Breathing rn Difficulty, Cough. 09:48 The patient has shortness of breath at rest, with light activity. Onset: The rn symptoms/episode began/occurred 2 day(s) ago. Duration: The symptoms are intermittent. The patient's shortness of breath is aggravated by exertion, light activity. Severity of symptoms: At their worst the symptoms were moderate in the emergency department the symptoms are unchanged. The patient has not experienced similar symptoms in the past. Reports cough, sweating, chills, sob, for about 2 days, this morning felt heart racing, no chest pain. + family member tested + for COVID-19 this past week. Denies fever/runny nose/change in taste or smell/abd pain/vomiting/diarrhea. Reports feels like when told had bronchitis in past. . Historical: - Allergies: 09:57 No Known Allergies; iw - Home Meds: 09:57 lisinopril-hydrochlorothiazide 20-12.5 mg Oral tab 1 tab twice a day [Active]; iw lovastatin 20 mg Oral tab 1 tab once daily [Active]; paroxetine oral oral [Active]; Furosemide Oral [Active]; - PMHx: 09:57 Hyperlipidemia; Hypertension; iw - PSHx: 09:57 None; iw - Immunization history:: Adult Immunizations not up to date. - Family history:: not pertinent. - Social history:: Smoking status: Patient/guardian denies using tobacco, but has a distant history of tobacco abuse. - Hospitalizations: : No recent hospitalization is reported. ROS: 09:49 Constitutional: Negative for fever, and weight loss, Eyes: Negative for injury, pain, rn redness, and discharge, Cardiovascular: Negative for chest pain, and edema, Respiratory: + sob and cough Abdomen/GI: Negative for abdominal pain, nausea, vomiting, diarrhea, and constipation, Back: Negative for injury and pain, MS/Extremity: Negative for injury and deformity, Skin: Negative for injury, rash, and discoloration, Neuro: Negative for headache, weakness, numbness, tingling, and seizure. Exam: 09:49 Constitutional: Overweight male, diaphoretic Head/Face: Normocephalic, atraumatic. rn Neck: Trachea midline, no masses palpated Cardiovascular: Tachycardic, irregular Respiratory: Mild tachypnea, no retractions, speaking full sentences. Abdomen/GI: soft, non-tender Skin: Warm, diaphoretic MS/ Extremity: Pulses equal, no cyanosis. Neurovascular intact. Full, normal range of motion. Equal circumference. Neuro: Awake and alert, GCS 15, oriented to person, place, time, and situation. Cranial nerves II-XII grossly intact. Motor strength 5/5 in all extremities. Sensory grossly intact. 09:51 ECG was reviewed by the Attending Physician. rn Vital Signs: 09:53 BP 138 / 97; Pulse 156; Resp 22 S; Temp 98.7; Pulse Ox 100% on R/A; Weight 195.04 kg; iw Height 5 ft. 9 in. (175.26 cm); Pain 0/10; 10:34 BP 137 / 109; Pulse 119; Resp 19; Pulse Ox 98% ; Pain 0/10; jl7 10:46 BP 122 / 78; Pulse 136; Resp 20; Pulse Ox 100% ; jl7 11:00 BP 123 / 87; Pulse 126; Resp 17 S; Pulse Ox 98% on R/A; jl7 11:30 BP 140 / 91; Pulse 122; Resp 21; Pulse Ox 100% ; jl7 12:00 BP 131 / 89; Pulse 122; Resp 20; Pulse Ox 98% ; jl7 13:00 BP 142 / 98; Pulse 125; Resp 20; Pulse Ox 100% ; jl7 14:00 BP 127 / 86; Pulse 116; Resp 20; Pulse Ox 100% ; jl7 09:53 Body Mass Index 63.50 (195.04 kg, 175.26 cm) iw MDM: 09:29 Patient medically screened. rn 10:20 Response to treatment: the patient's symptoms have mildly improved after treatment, and rn as a result, I will continue to observe the patient. 11:29 Differential diagnosis: Bronchitis CHF exacerbation, pneumonia, Pneumothorax pulmonary rn edema, Pneumonia, COVID-19, Afib with rvr. Data reviewed: vital signs, nurses notes, lab test result(s), EKG, radiologic studies, plain films, and as a result, I will admit patient. Counseling: I had a detailed discussion with the patient and/or guardian regarding: the historical points, exam findings, and any diagnostic results supporting the discharge/admit diagnosis, lab results, radiology results, the need for further work-up and treatment in the hospital. Admission orders: after a detailed discussion of the patient's condition and case, the admit orders are written by me. ED course: Pt with interstitial infiltrates, pulmonary edema vs pneumonia, afib with rvr with some improvement, abx and steroids given, possible COVID-19 given + exposure, will admit to Dr. Tang. . 07/02 09:46 Order name: Basic Metabolic Panel rn 07/02 09:46 Order name: CBC with Diff rn 07/02 09:46 Order name: Magnesium rn 07/02 09:46 Order name: NT PRO-BNP rn 07/02 09:46 Order name: PT-INR rn 07/02 09:46 Order name: Troponin (emerg Dept Use Only) rn 07/02 09:46 Order name: Procalcitonin; Complete Time: 11:25 rn 07/02 09:46 Order name: CRP; Complete Time: 11:25 rn 07/02 09:46 Order name: Ferritin; Complete Time: 11:25 rn 07/02 09:46 Order name: Basic Metabolic Panel; Complete Time: 11:25 EDMS 07/02 09:46 Order name: CBC with Automated Diff; Complete Time: 11:25 EDMS 07/02 09:46 Order name: Magnesium; Complete Time: 11:25 EDMS 07/02 09:46 Order name: NT PRO-BNP; Complete Time: 11:25 EDMS 07/02 09:46 Order name: Protime (+INR); Complete Time: 11:25 EDMS 07/02 09:46 Order name: Troponin (Emerg Dept Use Only); Complete Time: 11:25 EDMS 07/02 09:46 Order name: Blood Culture Adult (2) rn 07/02 11:41 Order name: Lactate EDMS 07/02 11:41 Order name: Urinalysis EDMI 07/02 11:41 Order name: CBC with Automated Diff EDMI 07/02 11:41 Order name: CBC with Automated Diff EDMI 07/02 11:41 Order name: CKMB Creatine Kinase MB EDMI 07/02 11:41 Order name: CKMB Creatine Kinase MB EDMI 07/02 11:41 Order name: CKMB Creatine Kinase MB EDMI 07/02 11:41 Order name: CKMB Creatine Kinase MB EDMI 07/02 11:41 Order name: Comprehensive Metabolic Panel EDMI 07/02 11:41 Order name: Comprehensive Metabolic Panel EDMI 07/02 11:41 Order name: Magnesium EDMI 07/02 11:41 Order name: Magnesium EDMI 07/02 11:41 Order name: Phosphorus EDMI 07/02 09:46 Order name: XRAY Chest (1 view); Complete Time: 11:25 rn 07/02 09:46 Order name: EKG; Complete Time: 09:47 rn 07/02 09:46 Order name: Cardiac monitoring; Complete Time: 10:12 rn 18 09:46 Order name: EKG - Nurse/Tech; Complete Time: 10:12 rn 07/02 09:46 Order name: IV Saline Lock; Complete Time: 10:12 rn 18 09:46 Order name: Labs collected and sent; Complete Time: 10:12 rn 18 09:46 Order name: O2 Per Protocol; Complete Time: 10:12 rn 18 09:46 Order name: O2 Sat Monitoring; Complete Time: 10:13 rn 18 11:41 Order name: Heart Healthy EDMI 07/02 11:42 Order name: Phosphorus [facility] 07/02 11:42 Order name: Troponin I [facility] 07/02 11:42 Order name: Troponin I [facility] 07/02 11:42 Order name: Troponin I EDMI 07/02 11:42 Order name: Troponin I EDMI 07/02 11:43 Order name: Chest For Pe Angio EDMI 07/02 11:59 Order name: SARS-COV-2 RT PCR EDMI 07/02 13:05 Order name: Blood Culture Adult (2) jl7 EC:51 Rate is 166 beats/min. Rhythm is irregularly irregular. QRS [place] is Normal. QRS rn interval is normal. QT interval is normal. T waves are Normal. No ST changes noted. Clinical impression: Atrial Fibrillation. Interpreted by me. Reviewed by me. Administered Medications: 09:44 Drug: Metoprolol 5 mg Route: IVP; Site: right antecubital; jl7 09:49 Drug: Metoprolol 5 mg Route: IVP; Site: right antecubital; jl7 09:50 Drug: Metoprolol TARTRATE (Lopressor) 50 mg Route: PO; jl7 14:02 Follow up: Response: No adverse reaction jl7 09:56 Drug: Metoprolol 5 mg Route: IVP; Site: right antecubital; jl7 14:03 Follow up: Response: No adverse reaction jl7 13:05 Drug: Decadron - Dexamethasone 10 mg Route: IVP; Site: left antecubital; jl7 14:00 Follow up: Response: No adverse reaction jl7 13:05 Drug: LevaQUIN 750 mg Volume: 150 ml; Route: IVPB; Infused Over: 90 mins; Site: left 7 antecubital; 14:01 Follow up: Response: No adverse reaction; IV Status: Infusion continued upon admission jl7 Disposition: 11:29 Critical Care:. rn Disposition: 07/02/20 11:31 Hospitalization ordered by Christiano Tang for Inpatient Admission. Preliminary diagnosis are Pneumonia, unspecified organism, Dyspnea, unspecified, Unspecified atrial fibrillation. - Bed requested for Telemetry/MedSurg (Inpatient). - Status is Inpatient Admission. jl7 - Condition is Stable. - Problem is new. - Symptoms have improved. Critical care time excluding procedures: 11:29 Critical care time: Bedside Care: 25 minutes, Consultation: 5 minutes. Total time: 30 rn minutes Signatures: Dispatcher [employer] Autumn Dozier RN RN dw Williams, Irene, RN RN iw Nieto, Roman, MD MD rn Leal, Jahala, RN RN jl7 Corrections: (The following items were deleted from the chart) 09:50 09:49 Constitutional: Negative for fever, and weight loss, Eyes: Negative for injury, rn pain, redness, and discharge, Cardiovascular: Negative for chest pain, and edema, Respiratory: + sob and cough Abdomen/GI: Negative for abdominal pain, nausea, vomiting, diarrhea, and constipation, MS/Extremity: Negative for injury and deformity, Skin: Negative for injury, rash, and discoloration, Neuro: Negative for headache, weakness, numbness, tingling, and seizure, rn 11:24 09:47 CORONAVIRUS+MR.LAB.BRZ ordered. [facility] EDMI 13:31 11:31 Hospitalization Ordered by Christiano Tang MD for Inpatient Admission. Preliminary dw diagnosis is Pneumonia, unspecified organism; Dyspnea, unspecified; Unspecified atrial fibrillation. Bed requested for Telemetry/MedSurg (Inpatient). Status is Inpatient Admission. Condition is Stable. Problem is new. Symptoms have improved. rn 14:12 13:31 07/02/2020 11:31 Hospitalization Ordered by Christiano Tang MD for Inpatient jl7 Admission. Preliminary diagnosis is Pneumonia, unspecified organism; Dyspnea, unspecified; Unspecified atrial fibrillation. Bed requested for Telemetry/MedSurg (Inpatient). Status is Inpatient Admission. Condition is Stable. Problem is new. Symptoms have improved. dw
--- NOTE | 2020-07-02 11:31 | ER ---
Nurse's Notes [facility] Name: Mat Lerma Age: 40 yrs Sex: Male : 1980 Arrival Date: 07/02/2020 Time: 09:[address] Private MD: Diagnosis: Pneumonia, unspecified organism;Dyspnea, unspecified;Unspecified atrial fibrillation Presentation: 07/02 09:45 Chief complaint: Patient states: SOB, non productive cough this morning, also has had iw cold sweats, chills, pt is diaphoretic, HR 150-170 on monitor, pt denies chest pain, states his HR has been irregular and fast in the past but not on meds for it. Coronavirus screen: chills, cough unrelated to allergies, difficulty breathing, Client presents with at least one sign or symptom that may indicate coronavirus-19. Standard/surgical mask placed on the client. Provider contacted for isolation considerations. Ebola Screen: Patient negative for fever greater than or equal to 101.5 degrees Fahrenheit, and additional compatible Ebola Virus Disease symptoms Patient denies exposure to infectious person. Patient denies travel to an Ebola-affected area in the 21 days before illness onset. No symptoms or risks identified at this time. Initial Sepsis Screen: Does the patient meet any 2 criteria? RR > 20 per min. Initial Sepsis Screen: Does the patient have a suspected source of infection? Yes: No. Patient's initial sepsis screen is negative. Risk Assessment: Do you want to hurt yourself or someone else? Patient reports no desire to harm self or others. Onset of symptoms was July 02, 2020. 09:45 Method Of Arrival: Ambulatory iw 09:45 Acuity: DIAMOND 2 iw Historical: - Allergies: 09:57 No Known Allergies; iw - Home Meds: 09:57 lisinopril-hydrochlorothiazide 20-12.5 mg Oral tab 1 tab twice a day [Active]; iw lovastatin 20 mg Oral tab 1 tab once daily [Active]; paroxetine oral oral [Active]; Furosemide Oral [Active]; - PMHx: 09:57 Hyperlipidemia; Hypertension; iw - PSHx: 09:57 None; iw - Immunization history:: Adult Immunizations not up to date. - Family history:: not pertinent. - Social history:: Smoking status: Patient/guardian denies using tobacco, but has a distant history of tobacco abuse. - Hospitalizations: : No recent hospitalization is reported. Screenin:20 Abuse screen: Denies threats or abuse. Denies injuries from another. Nutritional iw screening: No deficits noted. Tuberculosis screening: No symptoms or risk factors identified. Fall Risk None identified. IV access (20 points). Assessment: 09:30 General: Appears in no apparent distress. uncomfortable, obese, Behavior is calm, jl7 cooperative, appropriate for age. Pain: Denies pain. Neuro: Level of Consciousness is awake, alert, obeys commands, Oriented to person, place, time, situation. Cardiovascular: Reports diaphoresis, shortness of breath, Denies chest pain, Rhythm is atrial fibrillation with rapid ventricular response. Respiratory: Airway is patent Respiratory effort is even, unlabored, Respiratory pattern is regular, symmetrical, not auscultated. GI: No signs and/or symptoms were reported involving the gastrointestinal system. Abdomen is non-distended, obese. : No signs and/or symptoms were reported regarding the genitourinary system. EENT: No signs and/or symptoms were reported regarding the EENT system. Derm: Skin is diaphoretic, Skin is normal, Skin temperature is cool. Musculoskeletal: No signs and/or symptoms reported regarding the musculoskeletal system. 10:38 Reassessment: Patient appears in no apparent distress at this time. Patient and/or jl7 family updated on plan of care and expected duration. Pain level reassessed. Patient is alert, oriented x 3, equal unlabored respirations, skin warm/dry/pink. reports slight improvement in symptoms. 12:00 Reassessment: Patient appears in no apparent distress at this time. No changes from jl7 previously documented assessment. Patient and/or family updated on plan of care and expected duration. Pain level reassessed. Patient is alert, oriented x 3, equal unlabored respirations, skin warm/dry/pink. 13:00 Reassessment: Patient appears in no apparent distress at this time. No changes from jl7 previously documented assessment. Patient and/or family updated on plan of care and expected duration. Pain level reassessed. Patient is alert, oriented x 3, equal unlabored respirations, skin warm/dry/pink. Vital Signs: 09:53 BP 138 / 97; Pulse 156; Resp 22 S; Temp 98.7; Pulse Ox 100% on R/A; Weight 195.04 kg; iw Height 5 ft. 9 in. (175.26 cm); Pain 0/10; 10:34 BP 137 / 109; Pulse 119; Resp 19; Pulse Ox 98% ; Pain 0/10; jl7 10:46 BP 122 / 78; Pulse 136; Resp 20; Pulse Ox 100% ; jl7 11:00 BP 123 / 87; Pulse 126; Resp 17 S; Pulse Ox 98% on R/A; jl7 11:30 BP 140 / 91; Pulse 122; Resp 21; Pulse Ox 100% ; jl7 12:00 BP 131 / 89; Pulse 122; Resp 20; Pulse Ox 98% ; jl7 13:00 BP 142 / 98; Pulse 125; Resp 20; Pulse Ox 100% ; jl7 14:00 BP 127 / 86; Pulse 116; Resp 20; Pulse Ox 100% ; jl7 09:53 Body Mass Index 63.50 (195.04 kg, 175.26 cm) iw ED Course: 09:26 Patient arrived in ED. ag5 09:28 Lyndon Mccallum MD is Attending Physician. rn 09:30 Inserted saline lock: 20 gauge in right wrist, using aseptic technique. Blood collected.jl7 09:30 Patient has correct armband on for positive identification. Placed in gown. Bed in low jl7 position. Call light in reach. Side rails up X2. threat monitoring analyst on. Pulse ox on. NIBP on. 09:31 Edna Vail RN is Primary Nurse. jl7 09:50 Inserted saline lock: 20 gauge in left antecubital area, using aseptic technique. iw 09:55 Triage completed. iw 09:55 Inserted saline lock: 20 gauge in right antecubital area, using aseptic technique. IV iw inserted by DARCY Bishop. 09:55 Initial lab(s) drawn, by ED staff, sent to lab. iw 09:55 First set of blood cultures drawn by me. jl7 09:59 Arm band placed on. iw 10:10 XRAY Chest (1 view) In Process Unspecified. EDMS 10:15 Second set of blood cultures drawn by me, EKG done, by ED staff, reviewed by Lyndon Mccallum MD. 11:30 Christiano Tang MD is Hospitalizing Provider. rn 14:00 No provider procedures requiring assistance completed. Patient admitted, IV remains in jl7 place. intact, No redness/swelling at site. Administered Medications: 09:44 Drug: Metoprolol 5 mg Route: IVP; Site: right antecubital; jl7 09:49 Drug: Metoprolol 5 mg Route: IVP; Site: right antecubital; jl7 09:50 Drug: Metoprolol TARTRATE (Lopressor) 50 mg Route: PO; jl7 14:02 Follow up: Response: No adverse reaction jl7 09:56 Drug: Metoprolol 5 mg Route: IVP; Site: right antecubital; jl7 14:03 Follow up: Response: No adverse reaction jl7 13:05 Drug: Decadron - Dexamethasone 10 mg Route: IVP; Site: left antecubital; jl7 14:00 Follow up: Response: No adverse reaction jl7 13:05 Drug: LevaQUIN 750 mg Volume: 150 ml; Route: IVPB; Infused Over: 90 mins; Site: left jl7 antecubital; 14:01 Follow up: Response: No adverse reaction; IV Status: Infusion continued upon admission jl7 Outcome: 11:31 Decision to Hospitalize by Provider. rn 14:07 Admitted to Tele accompanied by tech, via stretcher, room 405, with chart, Report jl7 called to DARCY Saul 14:07 Condition: stable 14:07 Discharge instructions given to patient, Instructed on the need for admit, Demonstrated understanding of instructions. 14:12 Patient left the ED. jl7 Signatures: Dispatcher [employer] Cherrie Cuevas RN RN iw Nieto, Roman, MD MD rn Leal, Jahala, RN RN jl7 Julius Peck ag5 Corrections: (The following items were deleted from the chart) 09:59 09:58 Inserted iw 10:17 09:53 BP 138 / 97; Pulse 156bpm; Resp 22bpm; Spontaneous; Pulse Ox 100% RA; Temp 98.7F; iw 11:24 11:19 CORONAVIRUS+MR.LAB.SLOANE drawn and sent. EDKY
[2020-07-02] MEDS ORDERED: ONDANSETRON 4 MG/2 ML VIAL IV PRN (11:38)
[2020-07-02] MEDS ORDERED: ACETAMINOPHEN 500 MG TAB PO PRN (11:38)
[2020-07-02] MEDS ORDERED: dexAMETHasone 10 MG/ML VIAL ONE (11:52)
[2020-07-02] MEDS ORDERED: Levofloxacin 750mg IV 750 MG/150 ML BAG IV ONE (11:52)
--- NOTE | 2020-07-02 12:21 | RAD REPORT ---
EXAM DESCRIPTION: CT - Chest For Pe Angio - 07/02/2020 12:07 pm CLINICAL HISTORY: Chest pain. Shortness of breath. to R/o PE COMPARISON: No comparisons TECHNIQUE: CT angiogram of the pulmonary arteries was performed with MIP. All CT scans are performed using dose optimization technique as appropriate and may include automated exposure control or mA/KV adjustment according to patient size. FINDINGS: No evidence of pulmonary thromboembolism. Thoracic aorta is suboptimally opacified with contrast without gross acute finding. The lungs are clear. No significant pericardial or pleural fluid. No concerning bony finding. IMPRESSION: No evidence of pulmonary thromboembolism.
[2020-07-02] MEDS: METOPROLOL TAR 50 MG TAB PO SCH ×2 (12:25→20:03)
--- NOTE | 2020-07-02 12:25 | P.HP ---
Certification for Inpatient Patient admitted to: Inpatient With expected LOS: >2 Midnights Practitioner: I am a practitioner with admitting privileges, knowledge of patient current condition, hospital course, and medical plan of care. Services: Services provided to patient in accordance with Admission requirements found in Title 42 Section 412.3 of the Code of Federal Regulations Patient History Date of Service: 07/02/20 Reason for admission: SOB / palpitation History of Present Illness: 40 yo AAM with past medical history hypertension, hyperlipidemia admitted with shortness of breath associated with cough. The patient has recent bronchitis. Feeling it's like same bronchitis-like symptoms. Denies any chest pain. No fever or chills. The patient's shortness of breath is aggravated by exertion, light activity. Reports cough, sweating, chills, sob, for about 2 days, this morning felt heart racing, . He has family member tested + for COVID-19 this past week. . Denies any nausea vomiting. The patient was assessed in the ER and was found to have AFib with RVR / A flutter with variable AV block and is being admitted for further management. Allergies No Known Allergies Allergy (Unverified 08/14/12 22:04) - Past Medical/Surgical History Past Medical History: Reviewed- Non-Contributory -: HTN -: HLD Past Surgical History: Reviewed- Non-Contributory - Family History Family History: Reviewed- Non-Contributory - Social History Smoking Status: Former smoker Review of Systems 10-point ROS is otherwise unremarkable Physical Examination - Vital Signs Temperature: 98.2 F Blood Pressure: 138/78 Pulse: 148 Respirations: 18 Pulse Ox (%): 98 - Physical Exam General: Alert, Oriented x3, Mild distress, Obese HEENT: Atraumatic, Normocephalic Neck: Supple, 2+ carotid pulse no bruit Respiratory: Diminished Cardiovascular: Irregular heart rate/rhythm Capillary refill: <2 Seconds Gastrointestinal: Soft and benign, W/out hepatosplenomegaly Musculoskeletal: No clubbing, Swelling Integumentary: No rashes Neurological: Normal speech, Normal strength at 5/5 x4 extr Lymphatics: No axilla or inguinal lymphadenopathy - Studies Laboratory Data (last 24 hrs) 07/02/20 10:00: PT 11.5, INR 0.97 07/02/20 10:00: WBC 8.1, Hgb 15.6, Hct 47.7, Plt Count 253 07/02/20 10:00: Sodium 140, Potassium 4.0, BUN 15, Creatinine 0.91, Glucose 123 H, Magnesium 2.2 Assessment and Plan - Problems (Diagnosis) (1) Afib Current Visit: Yes Status: Acute (2) Pneumonia Current Visit: Yes Status: Acute (3) Hypertension Current Visit: Yes Status: Acute (4) Hyperlipidemia Current Visit: Yes Status: Acute - Plan AFib with RVR Multifocal pneumonia Hypertension Hyperlipidemia Obesity To rule out COVID 19 Plan Monitor shows atrial fibrillation/atrial flutter with variable AV block Will give a dose of Cardizem Monitor closely Antihypertensives titrated Will get a CT of the chest with PE protocol COVID 19 test is pending Anticoagulation with Lovenox full dose Saturating well in room air Continue home medications and titrate as needed sr risk management consultant Echocardiogram GI/DVT prophylaxis Advance directive full code - Advance Directives Does patient have a Living Will: No Does patient have a Durable POA for Healthcare: No Time Spent Managing Pts Care (In Minutes): 42
[2020-07-02] MEDS ORDERED: dilTIAZem HCL 25 MG/5 ML VIAL IV ONE ×2 (12:29→15:15)
[2020-07-02] MEDS ORDERED: AZITHROMYCIN IV 500 MG in NA CHLORIDE 0.9% 250 ML IVPB SCH (12:45)
[2020-07-02 14:39] VITALS: BMI 63.5
[2020-07-02 14:59] LABS: CKMB Creatine Kinase MB 1.6 ng/mL (0.3-3.6); Troponin I < 0.02 ng/mL (0.0-0.045)
[2020-07-02] MEDS: ENOXAPARIN 100 MG/ML SYR SQ SCH ×2 (15:17→20:03)
[2020-07-02] MEDS: CEFTRIAXONE/SWI 1gm 1 GM/10 ML SYR IV SCH (15:17)
[2020-07-02] MEDS ORDERED: METOPROLOL TARTRATE 5 MG/5 ML INJ IV PRN (16:48)
[2020-07-02] MEDS: METHYLPREDNISOLONE 40 MG INJ IV SCH ×2 (17:01→23:27)
[2020-07-02 17:46] LABS: Urine Appearance CLEAR; Urine Bilirubin NEGATIVE (NEG); Urine Blood NEGATIVE (NEG); Urine Color YELLOW; Urine Glucose NEGATIVE (NEG); Urine Protein TRACE (NEG); Urine Specific Gravity >=1.030 (1.005-1.030); Urine Urobilinogen 0.2 mg/dL (0.2-1.0)
[2020-07-02 17:48] LABS: Urine Microscopic Reflex ORDER UMIC
[2020-07-02 18:12] LABS: Urine Bacteria <20 /HPF (NONE SEEN); Urine Culture Reflex Order NOT NEEDED; Urine Mucus 1+ /HPF (NONE SEEN); Urine RBC <5 /HPF (NONE SEEN)
[2020-07-02] MEDS: ASCORBIC ACID 500 MG TABLET PO SCH (20:03)
[2020-07-02] MEDS: ZINC SULFATE 220 MG CAP PO SCH (20:03)
[2020-07-03 01:11] LABS: CKMB Creatine Kinase MB < 1.0 ng/mL (0.3-3.6); Troponin I < 0.02 ng/mL (0.0-0.045)
[2020-07-03 04:13] LABS: Absolute Lymphocytes (CBC) 0.8 K/uL (0.7-4.9); Basophils % 0.3 % (0-1.3); Hematocrit 44.8 % (39.6-49.0); Lymphocytes % 17.9 % (15.3-44.8); MPV 8.7 fL (7.6-11.3); RBC Red Blood Cell Count 5.35 M/uL (4.33-5.43)
[2020-07-03 04:28] LABS: ALT/SGPT 15 U/L (12-78); AST/SGOT 15 U/L (15-37); Albumin 3.4 g/dL (3.4-5.0); Alkaline Phosphatase 47 U/L (45-117); BUN Blood Urea Nitrogen 15 mg/dL (7-18); Bicarbonate 29 mmol/L (21-32); Bilirubin Total 0.3 mg/dL (0.2-1.0); Glucose Level 134 mg/dL (74-106); Magnesium 2.1 mg/dL (1.8-2.4); Phosphorus 2.5 mg/dL (2.5-4.9); Potassium 4.1 mmol/L (3.5-5.1); Sodium Level 139 mmol/L (136-145)
[2020-07-03] MEDS: METHYLPREDNISOLONE 40 MG INJ IV SCH ×2 (05:50→11:12)
[2020-07-03] MEDS: METOPROLOL TAR 50 MG TAB PO SCH (07:32)
[2020-07-03] MEDS: ASCORBIC ACID 500 MG TABLET PO SCH (07:32)
[2020-07-03] MEDS: ZINC SULFATE 220 MG CAP PO SCH (07:32)
[2020-07-03] MEDS: ENOXAPARIN 100 MG/ML SYR SQ SCH (07:32)
[2020-07-03] MEDS: POTASS/SODIUM PHOSPHATE 1 PKT POWD.PACK PO SCH ×3 (07:32→10:09)
[2020-07-03] MEDS: CEFTRIAXONE/SWI 1gm 1 GM/10 ML SYR IV SCH (07:33)
--- NOTE | 2020-07-03 07:41 | EKG ---
Test Date: 2020-07-02 Test Time: 09:43:30 Tire Servicer: TANO MEASUREMENT RESULTS: Intervals: Rate: 166 CO: QRSD: 82 QT: 280 QTc: 465 Spencer: P: CO: QRS: 22 T: -27 INTERPRETIVE STATEMENTS: Atrial flutter with variable AV block Abnormal ECG Compared to ECG 07/24/2019 10:45:55 Sinus rhythm no longer present Atrial premature complex(es) no longer present Electronically Signed On 07-03-20 07:39:51 CDT by Sam Red
--- NOTE | 2020-07-03 07:41 | EKG ---
Test Date: 2020-07-02 Test Time: 10:29:28 Corporate Legal Assistant: TANO MEASUREMENT RESULTS: Intervals: Rate: 128 MD: QRSD: 82 QT: 312 QTc: 455 [place]: P: MD: QRS: 28 T: 24 INTERPRETIVE STATEMENTS: Atrial fibrillation with rapid ventricular response with premature ventricular or aberrantly conducted complexes Abnormal ECG Compared to ECG 07/02/2020 09:43:30 Ventricular premature complex(es) now present Atrial flutter no longer present Electronically Signed On 07-03-20 07:39:50 CDT by Sam Red
[2020-07-03] MEDS ORDERED: POTASSIUM PHOS IN 0.9 % NACL 15 MMOL/250 ML BAG IV ONE (08:00)
[2020-07-03] MEDS ORDERED: POTASS/SODIUM PHOSPHATE 1 PKT POWD.PACK PO SCH (09:00)
[2020-07-03] MEDS ORDERED: AZITHROMYCIN IV 500 MG in NA CHLORIDE 0.9% 250 ML IVPB SCH (09:00)
[2020-07-03 10:14] VITALS: O2SAT 97
--- NOTE | 2020-07-03 10:29 | P.DS ---
Admission Date: 07/02/20 Discharge Date: 07/03/20 Disposition: ROUTINE DISCHARGE Discharge Condition: GOOD Reason for Admission: SOB / palpitation - Problems (1) Afib Status: Acute (2) Pneumonia Status: Acute (3) Hypertension Status: Acute (4) Hyperlipidemia Status: Acute Brief History of Present Illness: 40 yo AAM with past medical history hypertension, hyperlipidemia admitted with shortness of breath associated with cough. The patient has recent bronchitis. Feeling it's like same bronchitis-like symptoms. Denies any chest pain. No fever or chills. The patient's shortness of breath is aggravated by exertion, light activity. Reports cough, sweating, chills, sob, for about 2 days, this morning felt heart racing, . He has family member tested + for COVID-19 this past week. . Denies any nausea vomiting. The patient was assessed in the ER and was found to have AFib with RVR / A flutter with variable AV block and is being admitted for further management. Hospital Course: AFib with RVR Multifocal pneumonia Hypertension Hyperlipidemia Obesity COVID 19 Course The patient was admitted and was monitored closely under petroleum engineer showed atrial fibrillation/atrial flutter with variable AV block Patient was treated with IV Cardizem and beta blockers Antihypertensives titrated CT of the chest showed multifocal pneumonia and was started on steroids COVID 19 test is positive and was started on Anticoagulation with Lovenox full dose Saturating well in room air Continued home medications and titrate as needed Cardiology consulted recommended conservative management with outpatient follow up patient wanted go home and is being discharged home today in a stable condition with advice to follow up with PCP in 1 week and also with Cardiology in 1 week Vital Signs/Physical Exam: Temp Pulse Resp BP Pulse Ox 96.7 F L 61 18 156/106 H 97 07/03/20 07:28 07/03/20 07:28 07/03/20 07:28 07/03/20 07:28 07/03/20 07:28 General: Alert, In no apparent distress, Obese HEENT: Atraumatic, Normocephalic Neck: Supple Respiratory: Clear to auscultation bilaterally Cardiovascular: Regular rate/rhythm, Normal S1 S2 Capillary refill: <2 Seconds Gastrointestinal: Soft and benign, W/out hepatosplenomegaly Musculoskeletal: No clubbing, No swelling Integumentary: No rashes Neurological: Normal speech, Normal strength at 5/5 x4 extr Lymphatics: No axilla or inguinal lymphadenopathy Laboratory Data at Discharge: WBC 4.4 K/uL (4.3-10.9) D 07/03/20 03:27 Hgb 14.6 g/dL (13.6-17.9) 07/03/20 03:27 Hct 44.8 % (39.6-49.0) 07/03/20 03:27 Plt Count 255 K/uL (152-406) 07/03/20 03:27 PT 11.5 SECONDS (9.5-12.5) 07/02/20 10:00 INR 0.97 07/02/20 10:00 Sodium 139 mmol/L (136-145) 07/03/20 03:27 Potassium 4.1 mmol/L (3.5-5.1) 07/03/20 03:27 BUN 15 mg/dL (7-18) 07/03/20 03:27 Creatinine 0.93 mg/dL (0.55-1.3) 07/03/20 03:27 Glucose 134 mg/dL (74-106) H 07/03/20 03:27 Phosphorus 2.5 mg/dL (2.5-4.9) 07/03/20 03:27 Magnesium 2.1 mg/dL (1.8-2.4) 07/03/20 03:27 Total Bilirubin 0.3 mg/dL (0.2-1.0) 07/03/20 03:27 AST 15 U/L (15-37) 07/03/20 03:27 ALT 15 U/L (12-78) 07/03/20 03:27 Alkaline Phosphatase 47 U/L (45-117) 07/03/20 03:27 Troponin I < 0.02 ng/mL (0.0-0.045) 07/03/20 00:26 Home Medications: Furosemide [Lasix] 1 tab PO BID 07/02/20 Lisinopril [Zestril] 1 tab PO BID 07/02/20 Lovastatin 1 tab PO DAILY 07/02/20 Paroxetine HCl [Paroxetine ER] 1 tab PO DAILY 07/02/20 Apixaban [Eliquis] 5 mg PO BID #14 tablet 07/03/20 Ascorbic Acid [Vitamin C*] 500 mg PO BID #20 tablet 07/03/20 Metoprolol Tartrate [Lopressor*] 50 mg PO BID #60 tab 07/03/20 Zinc Sulfate [Zinc Sulfate*] 220 mg PO BID #20 cap 07/03/20 predniSONE [Prednisone] 20 mg PO BID #14 tablet 07/03/20 New Medications: Apixaban [Eliquis] 5 mg PO BID #14 tablet Metoprolol Tartrate [Lopressor*] 50 mg PO BID #60 tab predniSONE [Prednisone] 20 mg PO BID #14 tablet Ascorbic Acid [Vitamin C*] 500 mg PO BID #20 tablet Zinc Sulfate [Zinc Sulfate*] 220 mg PO BID #20 cap Diet: AHA Activity: Ad nallely Followup: Sam Red MD [ACTIVE - CAN ADMIT] - Time spent managing pt's care (in minutes): 32
[2020-07-03 11:13] VITALS: BP 152/98; TEMP 97.3
--- NOTE | 2020-07-04 08:44 | EKG ---
Test Date: 2020-07-02 Test Time: 19:10:11 Athletics Teacher: MICHAEL MEASUREMENT RESULTS: Intervals: Rate: 74 VT: 158 QRSD: 86 QT: 390 QTc: 432 Mayo: P: 49 VT: 158 QRS: 35 T: 38 INTERPRETIVE STATEMENTS: Normal sinus rhythm Normal ECG Compared to ECG 07/02/2020 10:29:28 Atrial fibrillation no longer present Ventricular premature complex(es) no longer present Electronically Signed On 07-04-20 08:38:48 CDT by Sam Red
--- NOTE | 2020-07-04 09:22 | ECHO ---
HEIGHT: 5 ft 9 in WEIGHT: 430 lb 0 oz DATE OF STUDY: 07/03/[address]: Yves Tang DO 2-DIMENSIONAL: YES M.MODE: YES DOPPLER: YES COLOR FLOW: YES TDS: YES PORTABLE: NO DEFINITY: NO BUBBLE STUDY: NO DIAGNOSIS: SHORTNESS OF BREATH CARDIAC HISTORY: CATHERIZATION: NO SURGERY: NO PROSTHETIC VALVE: NO PACEMAKER: NO MEASUREMENTS (cm) DIASTOLIC (NORMALS) SYSTOLIC (NORMALS) IVSd 1.5 (0.6-1.2) LA Diam 4.2 (1.9-4.0) LVEF 66% LVIDd 5.0 (3.5-5.7) LVIDs 3.2 (2.0-3.5) %FS 36% LVPWd 1.4 (0.6-1.2) Ao Diam 3.1 (2.0-3.7) 2 DIMENSIONAL ASSESSMENT: RIGHT ATRIUM: LEFT ATRIUM: RIGHT VENTRICLE: LEFT VENTRICLE: TRICUSPID VALVE: MITRAL VALVE: PULMONIC VALVE: AORTIC VALVE: PERICARDIAL EFFUSION: AORTIC ROOT: LEFT VENTRICULAR WALL MOTION: DOPPLER/COLOR FLOW: COMMENTS: TECHNICALLY DIFFICULT STUDY. GROSSLY NORMAL LEFT VENTRICULAR EJECTION FRACTION AND SIZE. NO EFFUSION. NO THROMBUS. TECHNOLOGIST: MIKAYLA LAURA
--- NOTE | 2020-07-04 09:48 | CON ---
Date of Consultation: 07/03/2020 Reason For Consultation: New-onset atrial fibrillation. History Of Present Illness: Mr. Lerma is a 40-year-old male who was admitted with COVID positive b ronchitis on chest x-ray. He was in atrial fibrillation with symptoms of palpitation and shortness o f breath but no chest pain, nausea, vomiting, diaphoresis, PND, orthopnea, pedal edema, or syncope. By the time I saw Mr. Lerma he has received some beta anthony IV and p.o. and he converted to sinus rhythm. This has not happened to him in the past. He does have a history of hypertension, dyslipid emia, chronic diastolic congestive heart failure for which he takes Lasix for. He sees Dr. Fernandez. Past Medical History: Otherwise as stated above. Allergies: NONE. Review of Systems: Negative. Social History: Negative. Family History: Negative. Medications: At home include lisinopril, Lasix, and Crestor. Physical Examination: General: He was asymptomatic. Vital Signs: Stable. Sinus rhythm. HEENT: Negative. Neck: Supple. No bruit. Chest: Clear. Cardiac: Revealed a regular rhythm and rate. No murmurs, gallops, or rubs. Abdomen: Benign. Extremities: Revealed no clubbing, cyanosis, or edema. Diagnostic Data: Unremarkable. Impression And Plan: Atrial fibrillation, new onset, possibly secondary to pulmonary hypoxia from CO VID, hypertension, and possible chronic diastolic congestive heart failure. I will continue his Lasi x, lisinopril, and Crestor. Add metoprolol 50 b.i.d., add a baby aspirin. He should have an echocar diogram to see if he had wall motion abnormalities in which case he should have other anticoagulants added on board. I will leave that decision up to Dr. Tang. From my standpoint, he can go home when ever it is okay with admitting physician. I will be happy to see him in the office in the next 2 wedenise TODD/NOEL Voice ID: [id number] Report ID: [id number]
== END 2020-07-03 13:00 | disposition home or self-care (01) | DRG 177 ==
LOC: ER 09:25 → ERHOLD 11:39 → 4TH 14:09
PROVIDERS: ADMIT Family Medicine; ATTEND Family Medicine
DX: U07.1 COVID-19 (principal); J12.89 Other viral pneumonia; Z68.44 Body mass index [BMI] 60.0-69.9, adult; I50.32 Chronic diastolic (congestive) heart failure; I11.0 Hypertensive heart disease with heart failure; E66.9 Obesity, unspecified; I48.91 Unspecified atrial fibrillation; E78.5 Hyperlipidemia, unspecified; Z87.891 Personal history of nicotine dependence
CPT/HCPCS: 36415; 71045; 71275; 80048; 80053; 81003; 81015; 82553; 82728; 83605; 83735; 83880; 84100; 84145; 84484; 85025; 85610; 86140; 87040; 93005; 93306; 94760; 96365; 96375; 99285; J0456; J0696; J1100; J1650; J2405; J2920; J7050; Q9967; U0003

== ENCOUNTER 2020-07-08 22:37 | Emergency (ER) | payer SELFPAY ==
--- OUTSIDE RECORDS SUMMARY | 2020-07-08 22:39 | XMS REPORT | Continuity of Care Document ---
:1980 Author Organization [facility] t Address [address] [place] [address] Care Team Providers Name Role Phone Reagan Khan Attending Clinician Tristian Bacon MD Attending Clinician Doctor Unassigned, Name Attending Clinician Unavailable Payers Payer Name Policy Type Policy Number Effective Date Expiration Date S ource Problems This patient has no known problems. Allergies, Adverse Reactions, Alerts Allergy Allergy Status Severity Reaction(s) Onset Inactive Treating Comm ents Source Name Type Date Date Clinician No Known DA Active U [facility] d [address] [facility] Medications This patient has no known medications. Procedures This patient has no known procedures. Encounters Start End Encounter Admission Attending Care Care Encounter Source Date/Time Date/Time Type Type Clinicians Facility Department ID 2020-01-22 2020-01-22 Emergency Reagan Lindsey [id number] 18:44:00 20:45:00 Nickie Tabares [id number] [place] [id number] Bishop [id number] 2019-12-12 2019-12-12 Emergency RAMAN Bacon [id number] 14:19:22 15:39:00 Dax Tabares [id number] [place] [id number] Bishop [id number] 2019-12-12 2019-12-12 Orders Doctor RODRIGUEZ [id number] 00:00:00 00:00:00 Only Unassigned, JEISON [id number] [place] [facility] [id number] Results Test Description Test Time Test [...] meth od. Completed by Nursing: NOCOMPREHENSIVE METABOLIC [id number] 19:14:00 Test Item Value Reference Range Interpretation [...] TOTAL (test code = ALKP) RULE OUT HI [id number] 19:14:00 Test Item Value Reference Range Interpretation [...] nadiya yby method. - XR CHEST 2 [id number] 18:50:00 Name: ZARIA LERMA [facility] : 1980 Age/S: 39 / M [id number] Unit #: [id number] Loc: [place] [address] Phys: Rodrigo Alvarado MD Acct: [id number] Dis Date: Status: REG ER PHONE #: [phone] Exam Date: 07/24/2019 1829 FAX #: Reason: chest pain EXAMS: CPT: [id number] XR CHEST 2 V 92830 Fluoro Time: DAP (Gy m2): Air Kerma (mGy): LOCATION: Q15 HISTORY: 39-year-old male with chest discomfort. COMMENT: Frontal and lateral chest radiographs were examined. The lungs are clear. The cardiac silhouette, adrian, and mediastinumare unremarkable. The skeleton and soft tissues are unremarkable. gambling monitor leads are present. IMPRESSION: Unremarkable radiographic examination of the chest. at 1850 Reported and signed by: Dax Mazariegos M.D. CC: Rodrigo Alvarado MD; Ning Milton NP PAGE 1 Signed Report [facility]: [facility] 1980 Age/S: 39 / M [address]: [id number] Loc: [place] [address] Phys: Rodrigo Alvarado MD Acct: [id number] Dis Date: Status:REG ER PHONE #: [phone] Exam Date: 07/24/2019 1821 FAX #: Reason: chest pain EXAMS: CPT: [id number] XR CHEST 2 V 34409 Fluoro Time: DAP (Gy m2): Air Kerma (mGy): <Continued> Technologist: HAYLEE CHRISTIANSON, RT(R)(CT)(MR); ... Trnscb Date/Time: 07/24/2019 (1849) [id number].[email or web address] Orig Print D/T: S: 07/24/2019 (1852) PAGE 2 Signed ReportCBC W/O [id number] 18:49:00 Test Item Value Reference Range Interpretation [...] 10.30 fL 7.0-9.6 H MPV) TROPONIN I [id number] 18:48:00 Test Item Value Reference Range Interpretation Comments TROPONIN I RAPID 0.00 ng/mL 0.00-0.08 N - The use o f serial (test code = sampling and te sting TROPIRAP) protocol is a recommended pra ctice- An elevated tro ponin level alone is often not sufficient for diagnosis of my ocardial infarction.
[2020-07-08] MEDS ORDERED: ACETAMINOPHEN 500 MG TAB ONE (23:33)
--- NOTE | 2020-07-09 00:39 | EDPHYS ---
Physician Documentation [facility] Name: Mat Lerma Age: 40 yrs Sex: Male : 1980 Arrival Date: 07/08/2020 Time: 22:38 Bed 20 Private MD: ED Physician Liam Shah HPI: 07/09 06:24 This 40 yrs old Black Male presents to ER via Wheelchair with complaints of Breathing tw4 Difficulty, COVID+. 06:24 The patient has shortness of breath at rest. Onset: The symptoms/episode began/occurred.tw4 06:25 Onset: The symptoms/episode began/occurred yesterday. Duration: The symptoms are tw4 intermittent, with no pattern. The patient's shortness of breath is aggravated by supine position, is alleviated by nothing. Associated signs and symptoms: The patient has no apparent associated signs or symptoms. Severity of symptoms: At their worst the symptoms were moderate in the emergency department the symptoms are unchanged. The patient has not experienced similar symptoms in the past. Historical: - Allergies: 07/08 23:00 No Known Allergies; wh - Home Meds: 23:00 Furosemide Oral [Active]; lisinopril-hydrochlorothiazide 20-12.5 mg Oral tab 1 tab wh twice a day [Active]; lovastatin 20 mg Oral tab 1 tab once daily [Active]; paroxetine Oral [Active]; - PMHx: 23:00 Hyperlipidemia; Hypertension; wh - Immunization history:: Adult Immunizations not up to date. - Social history:: Smoking status: Patient/guardian denies using. ROS: 07/09 06:25 Constitutional: Negative for fever, chills, and weight loss, Eyes: Negative for injury, tw4 pain, redness, and discharge, Cardiovascular: Negative for chest pain, palpitations, and edema, Respiratory: Negative for shortness of breath, cough, wheezing, and pleuritic chest pain, Abdomen/GI: Negative for abdominal pain, nausea, vomiting, diarrhea, and constipation, Back: Negative for injury and pain, MS/Extremity: Negative for injury and deformity, Skin: Negative for injury, rash, and discoloration, Neuro: Negative for headache, weakness, numbness, tingling, and seizure. Exam: 06:25 Constitutional: This is a well developed, well nourished patient who is awake, alert, tw4 and in no acute distress. Head/Face: Normocephalic, atraumatic. Chest/axilla: Normal chest wall appearance and motion. Nontender with no deformity. No lesions are appreciated. Cardiovascular: Regular rate and rhythm with a normal S1 and S2. No gallops, murmurs, or rubs. Normal PMI, no JVD. No pulse deficits. Respiratory: Lungs have equal breath sounds bilaterally, clear to auscultation and percussion. No rales, rhonchi or wheezes noted. No increased work of breathing, no retractions or nasal flaring. Abdomen/GI: Soft, non-tender, with normal bowel sounds. No distension or tympany. No guarding or rebound. No evidence of tenderness throughout. Back: No spinal tenderness. No costovertebral tenderness. Full range of motion. MS/ Extremity: Pulses equal, no cyanosis. Neurovascular intact. Full, normal range of motion. Neuro: Awake and alert, GCS 15, oriented to person, place, time, and situation. Cranial nerves II-XII grossly intact. Motor strength 5/5 in all extremities. Sensory grossly intact. Cerebellar exam normal. Normal gait. Vital Signs: 07/08 22:56 BP 165 / 102; Pulse 87; Resp 20; Temp 102.1; Pulse Ox 95% ; Weight 195.04 kg; Height 5 wh ft. 9 in. (175.26 cm); Pain 0/10; 23:30 BP 142 / 111; Pulse 81; Resp 18; Pulse Ox 96% on R/A; 07/09 00:30 BP 156 / 79; Pulse 79; Resp 18; Temp 99.9; Pulse Ox 97% on R/A; 07/08 22:56 Body Mass Index 63.50 (195.04 kg, 175.26 cm) wh MDM: 07/08 22:58 Patient medically screened. tw4 07/09 06:25 Differential diagnosis: asthma, pneumonia, pulmonary edema, Pulmonary Embolism reactive tw4 airway disease, Sepsis. Antibiotic administration: Not indicated, the patient is already taking antibiotics. Data reviewed: vital signs, nurses notes. Data reviewed: radiologic studies, plain films. Data interpreted: Pulse oximetry: Interpretation: normal. Counseling: I had a detailed discussion with the patient and/or guardian regarding: the historical points, exam findings, and any diagnostic results supporting the discharge/admit diagnosis, radiology results. Special discussion: I discussed with the patient/guardian in detail that at this point there is no indication for admission to the hospital. It is understood, however, that if the symptoms persist or worsen the patient needs to return immediately for re-evaluation. 07/08 22:59 Order name: CXR XRAY tw4 07/08 22:59 Order name: Document PUI#; Complete Time: 23:33 tw4 07/08 22:59 Order name: Droplet/Contact Precautions; Complete Time: 23:03 tw4 07/08 22:59 Order name: Labs collected and sent; Complete Time: 23:33 tw4 07/08 22:59 Order name: Notify [facility] [id number]/ ; Complete Time: 23:33 tw4 07/08 22:59 Order name: O2 Per Protocol; Complete Time: 23:33 tw4 Administered Medications: 07/08 23:33 Drug: Tylenol 1000 mg Route: PO; 07/09 01:09 Follow up: Response: No adverse reaction; Temperature is decreased 00:19 CANCELLED (Physician Discretion): SOLU-Medrol 125 mg IVP once tw4 00:45 Drug: Albuterol HFA Inhaler 2 puffs Route: Inhalation; 01:09 Follow up: Response: No adverse reaction; Wheezing diminished wh 00:45 Drug: AZITHromycin 500 mg Route: PO; 01:08 Follow up: Response: No adverse reaction 00:45 Drug: cloNIDine 0.1 mg Route: PO; 01:08 Follow up: Response: No adverse reaction 00:45 Drug: Decadron 10 mg Route: IM; Site: right deltoid; 01:08 Follow up: Response: No adverse reaction 00:51 Not Given (Physician Discretion): Decadron - Dexamethasone 10 mg IVP once Disposition: 07/09/20 00:39 Discharged to Home. Impression: Coronavirus infection, unspecified. - Condition is Stable. - Discharge Instructions: Upper Respiratory Infection, Adult. - Prescriptions for Albuterol Sulfate 2.5 mg /3 mL (0.083 %) Inhalation Solution for Nebulization - inhale 1 unit by NEBULIZATION route every 8 hours As needed; 1 box. Medrol (Gerhard) 4 mg Oral Tablets, Dose Pack - take 1 tablet by ORAL route as directed - follow package instructions; 1 packet. - Medication Reconciliation Form, Thank You Letter, Antibiotic Education, Prescription Opioid Use form. - Follow up: Private Physician; When: Upon discharge from the Emergency Department; Reason: Recheck today's complaints, Continuance of care, Re-evaluation by your physician. - Problem is an ongoing problem. - Symptoms have improved. Signatures: Dispatcher [employer] EDHolly Silver Terrence, MD MD tw4 Corrections: (The following items were deleted from the chart) 00:19 00:19 SOLU-Medrol 125 mg IVP once ordered. tw4 tw4 01:09 00:39 07/09/2020 00:39 Discharged to Home. Impression: Coronavirus infection, wh unspecified. Condition is Stable. Forms are Medication Reconciliation Form, Thank You Letter, Antibiotic Education, Prescription Opioid Use. Follow up: Private Physician; When: Upon discharge from the Emergency Department; Reason: Recheck today's complaints, Continuance of care, Re-evaluation by your physician. Problem is an ongoing problem. Symptoms have improved. tw4
--- NOTE | 2020-07-09 00:39 | ER ---
Nurse's Notes [facility] Name: Mat Lerma Age: 40 yrs Sex: Male : 1980 Arrival Date: 07/08/2020 Time: 22:38 Bed 20 Private MD: Diagnosis: Coronavirus infection, unspecified Presentation: 07/08 22:56 Chief complaint: Patient states: Pt was diagnosed with Covid and Pneumonia 4 days ago, wh started on Abx, now C/O more shortness of breath and coughing while lying down. Coronavirus screen: Client presents with at least one sign or symptom that may indicate coronavirus-19. Standard/surgical mask placed on the client. Provider contacted for isolation considerations. Client reports previous positive COVID test result. Ebola Screen: Patient negative for fever greater than or equal to 101.5 degrees Fahrenheit, and additional compatible Ebola Virus Disease symptoms Patient denies exposure to infectious person. Initial Sepsis Screen: Does the patient meet any 2 criteria? Temp <36.0*C (96.8*F)) or > 38.3*C (100.9*F). Does the patient have a suspected source of infection? Yes: Other: Covid Positive. Risk Assessment: Do you want to hurt yourself or someone else? Patient reports no desire to harm self or others. Onset of symptoms was July 08, 2020. 22:56 Method Of Arrival: Wheelchair 22:56 Acuity: DIAMOND 3 Triage Assessment: 23:00 Respiratory: Onset: The symptoms/episode began/occurred gradually, the patient reports symptoms have resolved. Historical: - Allergies: 23:00 No Known Allergies; wh - Home Meds: 23:00 Furosemide Oral [Active]; lisinopril-hydrochlorothiazide 20-12.5 mg Oral tab 1 tab wh twice a day [Active]; lovastatin 20 mg Oral tab 1 tab once daily [Active]; paroxetine Oral [Active]; - PMHx: 23:00 Hyperlipidemia; Hypertension; wh - Immunization history:: Adult Immunizations not up to date. - Social history:: Smoking status: Patient/guardian denies using. Screenin:00 Abuse screen: Denies threats or abuse. Denies injuries from another. Nutritional screening: No deficits noted. Tuberculosis screening: No symptoms or risk factors identified. Fall Risk None identified. Assessment: 23:00 General: Appears in no apparent distress. Behavior is calm, cooperative, appropriate for age. Pain: Denies pain. Neuro: Level of Consciousness is awake, alert, obeys commands, Oriented to person, place, time, situation, Appropriate for age. Cardiovascular: Heart tones S1 S2 Rhythm is regular. Respiratory: Airway is patent Respiratory effort is even, unlabored, Respiratory pattern is regular, symmetrical, Breath sounds with wheezes bilaterally. Respiratory: Reports shortness of breath cough that is. GI: Abdomen is round non-distended. : No signs and/or symptoms were reported regarding the genitourinary system. EENT: No signs and/or symptoms were reported regarding the EENT system. Derm: Skin is intact, is healthy with good turgor, Skin is pink, warm \T\ dry. normal. Musculoskeletal: Circulation, motion, and sensation intact. 07/09 00:30 Reassessment: Patient appears in no apparent distress at this time. No changes from previously documented assessment. Patient and/or family updated on plan of care and expected duration. Pain level reassessed. Patient is alert, oriented x 3, equal unlabored respirations, skin warm/dry/pink. Vital Signs: 07/08 22:56 BP 165 / 102; Pulse 87; Resp 20; Temp 102.1; Pulse Ox 95% ; Weight 195.04 kg; Height 5 wh ft. 9 in. (175.26 cm); Pain 0/10; 23:30 BP 142 / 111; Pulse 81; Resp 18; Pulse Ox 96% on R/A; 07/09 00:30 BP 156 / 79; Pulse 79; Resp 18; Temp 99.9; Pulse Ox 97% on R/A; 07/08 22:56 Body Mass Index 63.50 (195.04 kg, 175.26 cm) ED Course: 07/08 22:38 Patient arrived in ED. bp1 22:55 Holly Eaton is Primary Nurse. 22:58 Triage completed. wh 22:58 Liam Shah MD is Attending Physician. tw4 23:00 Arm band placed on right wrist. wh 23:00 Patient has correct armband on for positive identification. Bed in low position. Call light in reach. Side rails up X 1. Pulse ox on. NIBP on. 23:56 CXR XRAY In Process Unspecified. EDMS 07/09 01:06 No provider procedures requiring assistance completed. Patient did not have IV access during this emergency room visit. Administered Medications: 07/08 23:33 Drug: Tylenol 1000 mg Route: PO; 07/09 01:09 Follow up: Response: No adverse reaction; Temperature is decreased 00:19 CANCELLED (Physician Discretion): SOLU-Medrol 125 mg IVP once tw4 00:45 Drug: Albuterol HFA Inhaler 2 puffs Route: Inhalation; 01:09 Follow up: Response: No adverse reaction; Wheezing diminished 00:45 Drug: AZITHromycin 500 mg Route: PO; 01:08 Follow up: Response: No adverse reaction 00:45 Drug: cloNIDine 0.1 mg Route: PO; 01:08 Follow up: Response: No adverse reaction 00:45 Drug: Decadron 10 mg Route: IM; Site: right deltoid; 01:08 Follow up: Response: No adverse reaction 00:51 Not Given (Physician Discretion): Decadron - Dexamethasone 10 mg IVP once Outcome: 00:39 Discharge ordered by . tw4 01:06 Discharged to home ambulatory. 01:06 Condition: stable 01:06 Discharge instructions given to patient, Instructed on discharge instructions, follow up and referral plans. medication usage, POC Demonstrated understanding of instructions, follow-up care, medications, POC Prescriptions given X 2. 01:09 Patient left the ED. Signatures: Dispatcher [employer] EDMS Holly Eaton Liam Shah MD MD tw4 Lottie Castelan [facility] Corrections: (The following items were deleted from the chart) 01:09 00:30 BP 156 / 79; Pulse 79bpm; Resp 18bpm; Pulse Ox 97% RA; [facility]
[2020-07-09] MEDS ORDERED: cloNIDine HCL 0.1 MG TAB ONE (00:58)
[2020-07-09] MEDS ORDERED: AZITHROMYCIN 250 MG TAB ONE (00:59)
[2020-07-09] MEDS ORDERED: dexAMETHasone 10 MG/ML VIAL ONE (00:59)
[2020-07-09] MEDS ORDERED: ALBUTEROL INHALER 60 PUFF/8 GM IH ONE (01:06)
--- NOTE | 2020-07-09 08:06 | RAD REPORT ---
EXAM DESCRIPTION: Ana Luisa Single View07/08/2020 11:56 pm CLINICAL HISTORY: Shortness of breath COMPARISON: June FINDINGS: Left parahilar region mildly hazy. The remainder of the lungs appear clear of acute infiltrate. The heart is normal size IMPRESSION: Left parahilar region mildly hazy. This equivocal for a mild infiltrate
[2020-07-13 08:34] VITALS: BP 156/79; TEMP 99.9; O2SAT 97
== END 2020-07-09 01:09 | disposition home or self-care (01) ==
LOC: ER 22:37
DX: U07.1 COVID-19 (principal); I10 Essential (primary) hypertension; E78.5 Hyperlipidemia, unspecified
CPT/HCPCS: 71045; 96372; 99284; J1100

== ENCOUNTER 2021-01-17 09:51 | Emergency (ER) | payer OTHER, SELFPAY ==
--- OUTSIDE RECORDS SUMMARY | 2021-01-17 09:54 | XMS REPORT | Continuity of Care Document ---
:1980 Author Organization [facility] t Address [address] [place] [place] [address] Care Team Providers Name Role Phone Veronica Elkins Attending Clinician Oniel Santacruz MD Attending Clinician Dg Logan MD Attending Clinician Geo Khan MD Attending Clinician Jenn GREENBERG Attending Clinician Nickie Khan Attending Clinician Tristian Bacon MD Attending Clinician Doctor Unassigned, Name Attending Clinician Unavailable Geo Khan MD Admitting Clinician Payers Payer Name Policy Type Policy Number Effective Date Expiration Date S ource Problems This patient has no known problems. Allergies, Adverse Reactions, Alerts Allergy Allergy Status Severity Reaction(s) Onset Inactive Treating Comm ents Source Name Type Date Date Clinician No Known DA Active [facility] 07-24 [place] 00:00: d 00 [facility] Medications This patient has no known medications. Procedures This patient has no known procedures. Encounters Start End Encounter Admission Attending Care Care Encounter Source Date/Time Date/Time Type Type Clinicians Facility Department ID 2020-10-24 2020-10-24 Transition Zen Elkins [id number] 00:00:00 00:00:00 of Care Veronica Jacomey [id number] [place] [id number] 2020-10-20 2020-10-23 Hospital Oniel Santacruz [id number] 18:28:00 18:11:00 Encounter Dg Logan [id number] [facility] 4.2.7.2.686 Raf Barajas [id number] 2020-01-22 2020-01-22 Emergency Reagan Lindsey [facility] [id number] 18:44:00 20:45:00 Nickie Tabares [id number] [place] 4.2.7.2.686 [place] [id number] 2019-12-12 2019-12-12 Emergency Arleen, [facility] [id number] 14:19:22 15:39:00 Dax Tabares 350.1.13.10 [place] 4.2.7.2.686 [place] [id number] 2019-12-12 2019-12-12 Orders Doctor RODRIGUEZ [id number] 00:00:00 00:00:00 Only UnassignedJEISON 350.1.13.10 [place] [facility] [id number] [id number] Results Test Description Test Time Test [...] meth od. Completed by Nursing: NOCOMPREHENSIVE METABOLIC [id number] 19:14:00 Test Item Value Reference Range Interpretation [...] TOTAL (test code = ALKP) RULE OUT MS [id number] 19:14:00 Test Item Value Reference Range Interpretation [...] nadiya yby method. - XR CHEST 2 [id number] 18:50:00 [facility] 1980 Age[facility]S: 39 / M [id number] Unit #: [id number] Loc: [place] [address] Phys: Rodrigo Alvarado MD Acct: [id number] Dis Date: Status: REG ER PHONE #: [phone] Exam Date: 07/24/20191828 FAX #: Reason: chest pain EXAMS: CPT: [id number] XR CHEST 2 V 42134 Fluoro Time: DAP (Gy m2): Air Kerma (mGy): LOCATION: Q15 HISTORY: 39-year-old male with chest discomfort. COMMENT: Frontal and lateral chest radiographs were examined. The lungs are clear. The cardiac silhouette, adrian, and mediastinumare unremarkable. The skeleton and soft tissues are unremarkable. monitoring specialist leads are present. IMPRESSION: Unremarkable radiographic examination of the chest. at 1850 Reported and signed by: Dax Mazariegos M.D. CC: Rodrigo Alvarado MD; Ning Milton NP PAGE 1 Signed Report [facility] 1980 Age/S: 39 / M [address] [id number] Loc: [place] [address] Phys: Rodrigo Alvarado MD Acct: [id number] Dis Date: Status:REG ER PHONE #: [phone] Exam Date: 07/24/20191828 FAX #: Reason: chest pain EXAMS: CPT: [id number] XR CHEST 2 V 09083 Fluoro Time: DAP (Gy m2): Air Kerma (mGy): <Continued> Technologist: HAYLEE CHRISTIANSON, RT(R)(CT)(MR); ... Trnscb Date/Time: 07/24/2019 (1849) [id number] Orig Print D/T: S: 07/24/2019 (425) PAGE 2 Signed ReportL[facility] W/O [id number] 18:49:00 Test Item Value Reference Range Interpretation [...] 10.30 fL 7.0-9.6 H MPV) TROPONIN I [id number] 18:48:00 Test Item Value Reference Range Interpretation Comments TROPONIN I RAPID 0.00 ng/mL 0.00-0.08 N - The use o f serial (test code = sampling and te sting TROPIRAP) protocol is a recommended pra ctice- An elevated tro ponin level alone is often not sufficient for diagnosis of my ocardial infarction.
[2021-01-17 10:25] LABS: Absolute Lymphocytes (CBC) 1.5 K/uL (0.7-4.9); Basophils % 0.5 % (0-1.3); Hematocrit 40.4 % (39.6-49.0); Lymphocytes % 15.2 % (15.3-44.8); MPV 8.6 fL (7.6-11.3)
[2021-01-17 10:32] LABS: Protime INR 1.21
[2021-01-17] MEDS ORDERED: METOPROLOL TARTRATE 5 MG/5 ML INJ IV ONE ×2 (10:46→11:22)
[2021-01-17 10:48] LABS: ALT/SGPT 13 U/L (12-78); AST/SGOT 11 U/L (15-37); Albumin 3.6 g/dL (3.4-5.0); Alkaline Phosphatase 66 U/L (45-117); BUN Blood Urea Nitrogen 18 mg/dL (7-18); Bicarbonate 28 mmol/L (21-32); Bilirubin Direct 0.2 mg/dL (0-0.2); Bilirubin Total 0.7 mg/dL (0.2-1.0); Glucose Level 123 mg/dL (74-106); Magnesium 2.2 mg/dL (1.8-2.4); NT PRO-BNP 1238 pg/mL (<125); Potassium 4.1 mmol/L (3.5-5.1); Protein, Total 8.2 g/dL (6.4-8.2); Sodium Level 140 mmol/L (136-145); Troponin (Emerg Dept Use Only) < 0.02 ng/mL (0.0-0.045)
--- NOTE | 2021-01-17 10:48 | RAD REPORT ---
EXAM DESCRIPTION: RAD - Chest Single View - 01/17/2021 10:26 am CLINICAL HISTORY: PALPITATIONS COMPARISON: June 2020 TECHNIQUE: AP portable chest image was obtained 01/17/2021 10:26 am . FINDINGS: No peripheral mass or consolidations seen. Interstitial pattern is prominent and vasculatu re is increased from prior imaging. Cardiomegaly is similar to fractionally worse than comparison. Tr achea is midline. No measurable pleural effusion and no pneumothorax. No acute bony abnormality seen. No acute aortic findings suspected. IMPRESSION: Mild failure/ volume overload pattern is evident slightly worse than June 2020 finding s.
[2021-01-17] MEDS ORDERED: MIDAZOLAM HCL 2 MG/2 ML INJ ONE (12:08)
[2021-01-17] MEDS ORDERED: FENTANYL CITR 100 MCG/2 ML ONE (12:10)
[2021-01-17] MEDS ORDERED: NA CHLORIDE 0.9% 250 ML ONE (12:33)
[2021-01-17] MEDS ORDERED: D5W 100 ML IV ONE (12:43)
[2021-01-17] MEDS ORDERED: AMIODARONE HCL 150 MG/3 ML INJ IV ONE (12:43)
[2021-01-17] MEDS ORDERED: AMIODARONE IN DEXTROSE,ISO-OSM 360 MG/200 ML BAG IV ONE (13:05)
--- NOTE | 2021-01-17 13:44 | EDPHYS ---
Physician Documentation [facility] Name: Mat Lerma Age: 41 yrs Sex: Male : 1980 Arrival Date: 01/17/2021 Time: 09:53 Bed 15 Private MD: Sam Red S; Vellanki, Vinitha ED Physician Angel Parks HPI: 01/17 10:21 This 41 yrs old Black Male presents to ER via Ambulatory with complaints of abnormal jmm ekg. 10:21 Onset: The symptoms/episode began/occurred at an unknown time. Duration: The patient or jmm guardian reports a single episode. Modifying factors: The symptoms are aggravated by nothing. The symptoms are alleviated by nothing. Associated signs and symptoms: Pertinent negatives: chest pain, SOB, syncope. This is a 41 year old male with a history of hlp, htn, atrial fib, atrial flutter that presents to the ED after being evaluated in clinic by Dr. Gonzalez. HR above 150 in clinic. Advised of the need to get an ablation. . Historical: - Allergies: 10:09 No Known Allergies; iw - Home Meds: 10:09 Furosemide Oral [Active]; carvedilol oral oral [Active]; pravastatin oral oral iw [Active]; Eliquis oral oral [Active]; Lisinopril Oral [Active]; - PMHx: 10:09 Hyperlipidemia; Hypertension; Atrial Fib; A-Flutter; iw - PSHx: 10:09 None; iw - Immunization history:: Adult Immunizations not up to date. - Social history:: Smoking status: Patient reports the use of cigarette tobacco products, denies chronic smoking, but will smoke occasionally, cigars. ROS: 10:21 Constitutional: Negative for fever, chills, and weight loss, Cardiovascular: Negative jmm for chest pain, palpitations, and edema, Respiratory: Negative for shortness of breath, cough, wheezing, and pleuritic chest pain, Neuro: Negative for headache, weakness, numbness, tingling, and seizure. 10:21 All other systems are negative. Exam: 10:21 Constitutional: This is a well developed, well nourished patient who is awake, alert, jmm and in no acute distress. Head/Face: atraumatic. Eyes: EOMI, no conjunctival erythema appreciated ENT: Moist Mucus Membranes Neck: Trachea midline, Supple Chest/axilla: Normal chest wall appearance and motion. 10:21 Back: Normal ROM Skin: General appearance color normal MS/ Extremity: Moves all extremities, no obvious deformities appreciated, no edema noted to the lower extremities Neuro: Awake and alert, normal gait Psych: Behavior is normal, Mood is normal, Patient is cooperative and pleasant 10:21 Cardiovascular: Rate: tachycardic. 10:21 Abdomen/GI: Inspection: obese Vital Signs: 10:06 BP 125 / 93; Pulse 152; Resp 20 S; Pulse Ox 97% on R/A; Weight 195.04 kg; Height 5 ft. iw 9 in. (175.26 cm); Pain 0/10; 10:30 BP 109 / 97; Pulse 153; Resp 19; Temp 98.8; Pulse Ox 98% ; jl7 11:00 Pulse 150; jl7 11:00 BP 124 / 96; Pulse 150; Resp 17; Pulse Ox 96% ; jl7 11:22 Pulse 149; jl7 11:22 BP 107 / 77; Pulse 149; Resp 19; Pulse Ox 98% ; jl7 11:30 BP 90 / 68; Pulse 148; Resp 17; Pulse Ox 98% ; jl7 11:40 Pulse 148; jl7 11:45 BP 89 / 68; Pulse 143; Resp 19; Pulse Ox 96% ; jl7 12:00 BP 101 / 69; Pulse 143; Resp 22; Pulse Ox 95% ; jl7 12:30 BP 96 / 80; Pulse 147; Resp 22; Pulse Ox 97% ; jl7 12:52 BP 95 / 79; Pulse 144; Resp 21; Pulse Ox 97% ; jl7 13:41 BP 95 / 74; Pulse 146; Resp 19; Pulse Ox 96% ; jl7 14:00 BP 104 / 75; Pulse 146; Resp 17 S; Pulse Ox 98% on R/A; jl7 14:30 BP 98 / 80; Pulse 147; Resp 19; Pulse Ox 96% ; jl7 15:00 BP 99 / 86; Pulse 145; Resp 19; Pulse Ox 95% ; jl7 15:30 BP 107 / 84; Pulse 145; Resp 18; Pulse Ox 96% ; jl7 10:06 Body Mass Index 63.50 (195.04 kg, 175.26 cm) iw MDM: 10:08 Patient medically screened. jmm 13:40 Data reviewed: vital signs, nurses notes. Counseling: I had a detailed discussion with danielito the patient and/or guardian regarding: the historical points, exam findings, and any diagnostic results supporting the discharge/admit diagnosis, lab results, the need to transfer to another facility. ED course: I discussed the patient with Dr. Gonzalez whom recommended amiodarone bolus and drip along with transfer for ablation. I discussed the patient with Dr. Mcmullen whom accepted the patient to [facility]. Patient is currently stable and non toxic in appearance in the ED. . 01/17 10:05 Order name: Basic Metabolic Panel; Complete Time: 11:08 01/17 10:05 Order name: CBC with Diff; Complete Time: 11: 01/17 10:05 Order name: LFT's; Complete Time: 11: 01/17 10:05 Order name: Magnesium; Complete Time: 11: 01/17 10:05 Order name: NT PRO-BNP; Complete Time: 11: 01/17 10:05 Order name: PT-INR; Complete Time: 11: iw 01/17 10:05 Order name: Troponin (emerg Dept Use Only); Complete Time: 11: 01/17 10:05 Order name: XRAY Chest (1 view); Complete Time: 11: 01/17 10:14 Order name: COVID-19 : Document "Date of Symptom Onset" if Symptomatic. 01/17 11:48 Order name: SARS-COV-2 RT PCR; Complete Time: 11:54 EDNE 01/17 10:05 Order name: EKG; Complete Time: 10: 01/17 10:05 Order name: Cardiac monitoring; Complete Time: 10:27 iw 01/17 10:05 Order name: EKG - Nurse/Tech; Complete Time: 10:27 01/17 10:05 Order name: IV Saline Lock; Complete Time: 10: 01/17 10:05 Order name: Labs collected and sent; Complete Time: 10: iw 01/17 10:05 Order name: O2 Per Protocol; Complete Time: 10:27 01/17 10:05 Order name: O2 Sat Monitoring; Complete Time: 10:27 iw Administered Medications: 10:32 Drug: Lopressor 5 mg Route: IVP; Site: right hand; [facility] 11:00 Follow up: Pulse 150 bpm; Response: No adverse reaction; Cardiac rhythm is unchanged jl7 11:05 Drug: Lopressor 5 mg Route: IVP; Site: right hand; 7 11:22 Drug: Lopressor 5 mg Route: IVP; Site: right hand; 7 11:22 Follow up: Pulse 149 bpm; Response: No adverse reaction; No change in condition jl7 11:40 Follow up: Pulse 148 bpm; Response: No change in condition jl7 11:40 CANCELLED (Physician Discretion): Lopressor 5 mg IVP once; Hold for SBP <100 or HR <60. [facility] 12:30 Drug: NS 0.9% 250 ml Route: IV; Rate: bolus; Site: right hand; [facility] 13:02 Follow up: Response: No adverse reaction; IV Status: Completed infusion; IV Intake: jl7 250ml 12:30 Drug: amiodarone 150 mg Volume: 100 ml; Route: IVPB; Infused Over: 10 mins; Site: right [facility] hand; 12:40 Follow up: Response: No adverse reaction; Cardiac rhythm is unchanged; IV Status: jl7 Completed infusion 12:56 Drug: amiodarone 900 mg, D5W 500 ml Route: IVPB; Rate: 1 mg/min; Site: right hand; [facility] 15:51 Follow up: IV Status: Infusion continued upon transfer jl7 Disposition: 16:50 Co-signature as Attending Physician, Angel Parks MD I agree with the assessment and kdr plan of care. Disposition: 01/17/21 13:43 Transfer ordered to [facility]. Diagnosis is Atrial fibrillation and flutter. - Reason for transfer: Higher level of care. - Accepting physician is Benedict. - Condition is Stable. - Problem is new. - Symptoms are unchanged. Signatures: Dispatcher [employer] EDMS Angel Parks MD MD kdr Mickail, Joel, PA PA jmm Williams, Irene, RN RN iw Leal, Jahala, RN RN jl7 Corrections: (The following items were deleted from the chart) 11:05 10:15 CORONAVIRUS ordered. EDNE EDMS 11:40 10:20 Lopressor 5 mg IVP once; Hold for SBP <100 or HR <60. ordered. danielito jl 11:40 10:35 Lopressor 5 mg IVP once; Hold for SBP <100 or HR <60. given. emily jl7 11:40 11:40 Lopressor 5 mg IVP once; Hold for SBP <100 or HR <60. ordered. emily jl7 15:51 13:43 01/17/2021 13:43 Transfer ordered to [facility]. torin7 Diagnosis is Atrial fibrillation and flutter. Reason for transfer: Higher level of care. Accepting physician is Benedict. Condition is Stable. Problem is new. Symptoms are unchanged. danielito
--- NOTE | 2021-01-17 13:44 | ER ---
Nurse's Notes [facility] Name: Mat Lerma Age: 41 yrs Sex: Male : 1980 Arrival Date: 01/17/2021 Time: 09:53 Bed 15 Private MD: Sam Red S; Vellanki, Vinitha Diagnosis: Atrial fibrillation and flutter Presentation: 01/17 10:06 Chief complaint: Patient states: had follow up with Dr. Gonzalez today and was sent to ER iw for further evaluation, Aflutter on EKG, pt was told he needs an ablation. Coronavirus screen: At this time, the client does not indicate any symptoms associated with coronavirus-19. Ebola Screen: Patient negative for fever greater than or equal to 101.5 degrees Fahrenheit, and additional compatible Ebola Virus Disease symptoms Patient denies exposure to infectious person. Patient denies travel to an Ebola-affected area in the 21 days before illness onset. No symptoms or risks identified at this time. Initial Sepsis Screen: Does the patient meet any 2 criteria? No. Patient's initial sepsis screen is negative. Does the patient have a suspected source of infection? No. Patient's initial sepsis screen is negative. Risk Assessment: Do you want to hurt yourself or someone else? Patient reports no desire to harm self or others. Onset of symptoms was January 17, 2021. 10:06 Method Of Arrival: Ambulatory iw 10:06 Acuity: DIAMOND 2 iw Historical: - Allergies: 10:09 No Known Allergies; iw - Home Meds: 10:09 Furosemide Oral [Active]; carvedilol oral oral [Active]; pravastatin oral oral iw [Active]; Eliquis oral oral [Active]; Lisinopril Oral [Active]; - PMHx: 10:09 Hyperlipidemia; Hypertension; Atrial Fib; A-Flutter; iw - PSHx: 10:09 None; iw - Immunization history:: Adult Immunizations not up to date. - Social history:: Smoking status: Patient reports the use of cigarette tobacco products, denies chronic smoking, but will smoke occasionally, cigars. Screenin:30 Abuse screen: Denies threats or abuse. Denies injuries from another. Nutritional jl7 screening: No deficits noted. Tuberculosis screening: No symptoms or risk factors identified. Fall Risk IV access (20 points). Total Sorto Fall Scale indicates No Risk (0-24 pts). Assessment: 10:00 General: Appears in no apparent distress. uncomfortable, Behavior is calm, cooperative, jl7 appropriate for age. Pain: Denies pain. Neuro: Level of Consciousness is awake, alert, obeys commands, Oriented to person, place, time, situation. Cardiovascular: Denies chest pain, shortness of breath, pt diaphoretic. Rhythm is atrial flutter 2:1. Respiratory: Airway is patent Respiratory effort is even, unlabored, Respiratory pattern is regular, symmetrical. Derm: Skin is diaphoretic, Skin is normal, Skin temperature is warm. 11:00 Reassessment: Patient appears in no apparent distress at this time. No changes from jl7 previously documented assessment. Patient and/or family updated on plan of care and expected duration. Pain level reassessed. Patient is alert, oriented x 3, equal unlabored respirations, skin warm/dry/pink. 12:00 Reassessment: Patient appears in no apparent distress at this time. No changes from jl7 previously documented assessment. Patient and/or family updated on plan of care and expected duration. Pain level reassessed. Patient is alert, oriented x 3, equal unlabored respirations, skin warm/dry/pink. 13:00 Reassessment: Patient appears in no apparent distress at this time. No changes from jl7 previously documented assessment. Patient and/or family updated on plan of care and expected duration. Pain level reassessed. Patient is alert, oriented x 3, equal unlabored respirations, skin warm/dry/pink. 14:00 Reassessment: Patient appears in no apparent distress at this time. No changes from jl7 previously documented assessment. Patient and/or family updated on plan of care and expected duration. Pain level reassessed. Patient is alert, oriented x 3, equal unlabored respirations, skin warm/dry/pink. 15:00 Reassessment: Patient appears in no apparent distress at this time. No changes from jl7 previously documented assessment. Patient and/or family updated on plan of care and expected duration. Pain level reassessed. Patient is alert, oriented x 3, equal unlabored respirations, skin warm/dry/pink. Vital Signs: 10:06 BP 125 / 93; Pulse 152; Resp 20 S; Pulse Ox 97% on R/A; Weight 195.04 kg; Height 5 ft. iw 9 in. (175.26 cm); Pain 0/10; 10:30 BP 109 / 97; Pulse 153; Resp 19; Temp 98.8; Pulse Ox 98% ; jl7 11:00 Pulse 150; jl7 11:00 BP 124 / 96; Pulse 150; Resp 17; Pulse Ox 96% ; jl7 11:22 Pulse 149; jl7 11:22 BP 107 / 77; Pulse 149; Resp 19; Pulse Ox 98% ; jl7 11:30 BP 90 / 68; Pulse 148; Resp 17; Pulse Ox 98% ; jl7 11:40 Pulse 148; jl7 11:45 BP 89 / 68; Pulse 143; Resp 19; Pulse Ox 96% ; jl7 12:00 BP 101 / 69; Pulse 143; Resp 22; Pulse Ox 95% ; jl7 12:30 BP 96 / 80; Pulse 147; Resp 22; Pulse Ox 97% ; jl7 12:52 BP 95 / 79; Pulse 144; Resp 21; Pulse Ox 97% ; jl7 13:41 BP 95 / 74; Pulse 146; Resp 19; Pulse Ox 96% ; jl7 14:00 BP 104 / 75; Pulse 146; Resp 17 S; Pulse Ox 98% on R/A; jl7 14:30 BP 98 / 80; Pulse 147; Resp 19; Pulse Ox 96% ; jl7 15:00 BP 99 / 86; Pulse 145; Resp 19; Pulse Ox 95% ; jl7 15:30 BP 107 / 84; Pulse 145; Resp 18; Pulse Ox 96% ; jl7 10:06 Body Mass Index 63.50 (195.04 kg, 175.26 cm) ED Course: 09:53 Patient arrived in ED. as 09:55 Sam Red MD is Private Physician. as 09:55 Juan J Fernandez MD is Private Physician. as 09:55 Edna Vail RN is Primary Nurse. jl7 10:00 Patient has correct armband on for positive identification. Placed in gown. Bed in low jl7 position. Call light in reach. Side rails up X 1. child monitor on. Pulse ox on. NIBP on. 10:00 Initial lab(s) drawn, by me, sent to lab. EKG done, by ED staff, reviewed by Jai PIPER. Inserted saline lock: 20 gauge in right hand, using aseptic technique. Blood collected. 10:07 [facility] 10:07 Angel Parks MD is Attending Physician. jmm 10:07 Triage completed. iw 10:09 Arm band placed on. iw 10:25 X-ray completed. Portable x-ray completed in exam room. Patient tolerated procedure sw well. 10:26 XRAY Chest (1 view) In Process Unspecified. EDMS 10:45 COVID swab sent to lab. jl7 12:14 initiated a transfer with Reilly from the [facility]. eb 12:57 connected the pharmacy stock clerk radio communications mechanician for [facility] with Jai Piper for patient transfer eb consultation. 14:48 administrative approval given by Reilly Mora Rn/ patient has been accepted to [facility] bed 6105/ Dr. Mcmullen has accepted the patient in transfer/ report to be called to the transfer center at [phone]. 15:00 No provider procedures requiring assistance completed. Patient transferred, IV remains jl7 in place. intact, No redness/swelling at site. Administered Medications: 10:32 Drug: Lopressor 5 mg Route: IVP; Site: right hand; jl7 11:00 Follow up: Pulse 150 bpm; Response: No adverse reaction; Cardiac rhythm is unchanged jl7 11:05 Drug: Lopressor 5 mg Route: IVP; Site: right hand; jl7 11:22 Drug: Lopressor 5 mg Route: IVP; Site: right hand; jl7 11:22 Follow up: Pulse 149 bpm; Response: No adverse reaction; No change in condition jl7 11:40 Follow up: Pulse 148 bpm; Response: No change in condition jl7 11:40 CANCELLED (Physician Discretion): Lopressor 5 mg IVP once; Hold for SBP <100 or HR <60. jl7 12:30 Drug: NS 0.9% 250 ml Route: IV; Rate: bolus; Site: right hand; jl7 13:02 Follow up: Response: No adverse reaction; IV Status: Completed infusion; IV Intake: jl7 250ml 12:30 Drug: amiodarone 150 mg Volume: 100 ml; Route: IVPB; Infused Over: 10 mins; Site: right jl7 hand; 12:40 Follow up: Response: No adverse reaction; Cardiac rhythm is unchanged; IV Status: jl7 Completed infusion 12:56 Drug: amiodarone 900 mg, D5W 500 ml Route: IVPB; Rate: 1 mg/min; Site: right hand; jl7 15:51 Follow up: IV Status: Infusion continued upon transfer jl7 Intake: 13:02 IV: 250ml; Total: 250ml. jl7 Outcome: 13:43 ER care complete, transfer ordered by MD. esteves 15:51 Transferred by ground EMS to [facility], Transfer form completed. jl7 X-rays sent w/ patient. 15:51 Condition: stable 15:51 Discharge instructions given to patient, Instructed on the need for transfer, Demonstrated understanding of instructions. 15:51 Patient left the ED. jl7 Signatures: Dispatcher [employer] EDMS Jai Cordova PA PA jmm Martinez, Amelia as Williams, Irene, Geraldine Valerio RN, Jahala, RN RN jl7 Jackie Villatoro Corrections: (The following items were deleted from the chart) 11:40 10:32 Lopressor 5 mg IVP in right hand jl jl7
[2021-01-17 20:56] VITALS: TEMP 98.8
[2021-01-17 21:12] VITALS: BP 107/84; O2SAT 96
[2021-01-19] MEDS ORDERED: ONDANSETRON 4 MG/2 ML VIAL ONE (02:34)
[2021-01-19] MEDS ORDERED: MORPHINE 4 MG/ML SYR ONE (02:34)
== END 2021-01-17 15:51 | disposition short-term general hospital (02) ==
LOC: ER 09:51
DX: I48.91 Unspecified atrial fibrillation (principal); Z79.01 Long term (current) use of anticoagulants; I48.92 Unspecified atrial flutter; I10 Essential (primary) hypertension; E78.5 Hyperlipidemia, unspecified; F17.290 Nicotine dependence, other tobacco product, uncomplicated; Z20.822 Contact with and (suspected) exposure to COVID-19
CPT/HCPCS: 96365; 93005; 85025; 80048; 36415; 83735; 85610; 80076; 84484; 83880; 71045; 96375; 99285; 96366; U0003; J0282 ×2; J7050; J2250; J3010